=== PATIENT | male | born 1960 | race Caucasian/White ===

== ENCOUNTER 2018-07-10 09:09 | Inpatient (IN) | payer OTHER ==
[~2018-07-10] VITALS: Ht 182.9 cm; Wt 115.2 kg
[2018-07-10] VITALS (13 sets, daily range): BP systolic 92–125; BP diastolic 68–98
[~2018-07-10 09:09] MED LIST: ASPI-252 PO; ASPI-482 PO; ASPI325T70 PO; BYSTOLIC10 MG PO; CARV25TA2 PO; CLOP75TA PO; DOXY100C14 PO; FLUT1DIS IH; GABA-585 PO; ISOS60TA2 PO; LOVA40TA2 PO; METF100010 PO; OLME20TA17 PO; PROAIR RESPICL90 MCG IH; RANO500T2 PO
[2018-07-10] MEDS ORDERED: ONDANSETRON PF 4 MG/2 ML VIAL. ONE (09:23)
[2018-07-10] MEDS ORDERED: MORPHINE SULFATE 2 MG/ML VIAL. ONE (09:23)
[2018-07-10] MEDS ORDERED: MORPHINE SULFATE 4 MG/ML VIAL. IV ONE (09:30)
[2018-07-10] MEDS ORDERED: ONDANSETRON PF 4 MG/2 ML VIAL. IV ONE ×2 (09:30→10:00)
[2018-07-10] MEDS ORDERED: HEPARIN for IV BOLUS 10,000 UNIT/10 ML VIAL. IV ONE ×2 (09:30→22:00)
[2018-07-10] MEDS ORDERED: ASPIRIN CHEWABLE 81 MG TABLET. PO ONE (09:30)
[2018-07-10] MEDS ORDERED: ONDANSETRON PF 4 MG/2 ML VIAL. IM ONE (09:30)
[2018-07-10] MEDS ORDERED: MORPHINE SULFATE 2 MG/ML VIAL. IV ONE ×2 (09:30→10:00)
[2018-07-10 09:31] LABS: CREATININE ISTAT 1.1 mg/dL (0.5-1.4); HEMOGLOBIN ISTAT 15.6 g/dL (14-18); ION CA ISTAT 1.1 mmol/L (1.13-1.32); POTASSIUM ISTAT 4.1 mmol/L (3.5-5.0)
[2018-07-10] MEDS ORDERED: MORPHINE SULFATE 4 MG/ML VIAL. ONE (09:31)
--- NOTE | 2018-07-10 09:31 | PHYS DOC ---
Past Medical History Past Medical History: High Cholesterol, Hypertension, CO Past Surgical History: Coronary Bypass Surgery, Other Additional Past Surgical Histo: LEFT ARM SURGERY,CARDIAC STENTS X17 Alcohol Use: Occasionally Drug Use: None Adult General Chief Complaint Chief Complaint: CHEST PAIN-CARDIAC NATURE HPI HPI Patient is a 57-year-old male who presents with complaint of chest pain that originally started at about midnight last night. He states the pain initially lasted about 40 minutes and later had returned and had a second episode lasted approximately 15 minutes. He states that he was able to go to sleep after that and that he was woken this morning with left-sided chest pain that started again about 7:30 AM. Patient states that pain is an 8 out of 10 currently and it was worse earlier. He was diaphoretic and nauseated. Patient does have strong cardiac history. He states that he tried to get ahold of Dr. Lindquist his director integrated but was unable to so came to the emergency room. He describes the pain as being squeezing. Review of Systems Review of Systems Constitutional: Denies fever or chills [] Respiratory: Complains of shortness of breath [] Cardiovascular: Complains of chest pain[] GI: Denies abdominal pain. Admits to nausea.[] Musculoskeletal: Denies back pain or joint pain [] All other systems were reviewed and found to be within normal limits, except as documented in this note. Current Medications Current Medications Current Medications Medications (Trade) Dose Ordered Sig/Kailey Start Time Stop Time Status Last Admin Dose Admin Aspirin (Children'S Aspirin) 324 mg 1X ONCE 07/10/18 09:30 07/10/18 09:31 DC 07/10/18 09:23 324 MG Diltiazem HCl (Cardizem) 25 mg STK-MED ONCE 07/10/18 09:33 07/10/18 09:34 DC Diltiazem HCl 125 mg/Dextrose 125 ml @ 0 mls/hr CONT PRN 07/10/18 09:45 Heparin Sodium (Porcine) (Heparin Sodium) 4,000 unit 1X ONCE 07/10/18 09:30 07/10/18 09:31 DC 07/10/18 09:40 4,000 UNIT Heparin Sodium/ Dextrose 500 ml @ 20 mls/hr CONT PRN 07/10/18 09:45 Morphine Sulfate (Morphine Sulfate) 4 mg STK-MED ONCE 07/10/18 09:31 07/10/18 09:32 DC Ondansetron HCl (Zofran) 4 mg 1X ONCE 07/10/18 09:30 07/10/18 09:31 DC Allergies Allergies Allergies Coded Allergies Type Severity Reaction Last Updated Verified hydrochlorothiazide Allergy Intermediate diarrhea 02/19/15 Yes Physical Exam Physical Exam Constitutional: Well developed, well nourished, in moderate distress. [] HENT: Normocephalic, atraumatic, bilateral external ears normal, oropharynx moist, no oral exudates, nose normal. [] Eyes: PERRLA, EOMI, conjunctiva normal, no discharge. [] Neck: Normal range of motion, no tenderness, supple, no stridor. [] Cardiovascular: Markedly tachycardic rate with regular rhythm[] Lungs & Thorax: Bilateral breath sounds clear to auscultation [] Abdomen: Bowel sounds normal, soft, no tenderness. [] Skin: Warm, dry, no erythema, no rash. [] Extremities: No tenderness, no cyanosis, no clubbing, ROM intact, no edema. [] Neurologic: Alert and oriented X 3, normal motor function, normal sensory function, no focal deficits noted. [] Current Patient Data Vital Signs Vital Signs Date Time Temp Pulse Resp B/P (MAP) Pulse Ox O2 Delivery O2 Flow Rate FiO2 07/10/18 09:37 149 120/88 07/10/18 09:35 99 Room Air 07/10/18 09:12 97.4 20 97.4 Lab Values Laboratory Tests Test 07/10/18 09:20 07/10/18 09:21 07/10/18 09:26 White Blood Count 13.2 x10^3/uL (4.0-11.0) H Red Blood Count 5.23 x10^6/uL (4.30-5.70) Hemoglobin 15.8 g/dL (13.0-17.5) Hematocrit 46.9 % (39.0-53.0) Mean Corpuscular Volume 90 fL (79-100) Mean Corpuscular Hemoglobin 30 pg (25-35) Mean Corpuscular Hemoglobin Concent 34 g/dL (31-37) Red Cell Distribution Width 13.6 % (11.5-14.5) Platelet Count 230 x10^3/uL (140-400) Neutrophils (%) (Auto) 69 % (31-73) Lymphocytes (%) (Auto) 17 % (24-48) L Monocytes (%) (Auto) 12 % (0-9) H Eosinophils (%) (Auto) 1 % (0-3) Basophils (%) (Auto) 1 % (0-3) Neutrophils # (Auto) 9.1 x10^3uL (1.8-7.7) H Lymphocytes # (Auto) 2.2 x10^3/uL (1.0-4.8) Monocytes # (Auto) 1.6 x10^3/uL (0.0-1.1) H Eosinophils # (Auto) 0.2 x10^3/uL (0.0-0.7) Basophils # (Auto) 0.1 x10^3/uL (0.0-0.2) Sodium Level 139 mmol/L (136-145) Potassium Level 4.4 mmol/L (3.5-5.1) Chloride Level 102 mmol/L (98-107) Carbon Dioxide Level 28 mmol/L (21-32) Anion Gap 9 (6-14) 16 mmol/L (6-14) H Blood Urea Nitrogen 20 mg/dL (8-26) Creatinine 1.2 mg/dL (0.7-1.3) Estimated GFR (Cockcroft-Gault) 62.9 BUN/Creatinine Ratio 17 (6-20) Glucose Level 218 mg/dL (70-99) H 193 mg/dL (70-99) H Calcium Level 9.5 mg/dL (8.5-10.1) Magnesium Level Pending Total Bilirubin Pending Aspartate Amino Transferase (AST) Pending Alanine Aminotransferase (ALT) Pending Alkaline Phosphatase Pending Total Protein Pending Albumin Pending Albumin/Globulin Ratio Pending POC Troponin I 5.28 ng/ml (<0.08) POC Hemoglobin 15.6 g/dL (14-18) POC Hematocrit 46 % (37-52) POC Sodium 138 mmol/L (135-145) POC Potassium 4.1 mmol/L (3.5-5.0) POC Chloride 100 mmol/L (98-110) POC Total CO2 27 mmol/L (23-32) POC Blood Urea Nitrogen 21 mg/dL (8-26) POC Creatinine 1.1 mg/dL (0.5-1.4) POC Ionized Calcium (Symone) 1.10 mmol/L (1.13-1.32) L Laboratory Tests 07/10/18 09:20 Laboratory Tests 07/10/18 09:20 07/10/18 09:26 EKG EKG [] Interpretation Time: EKG demonstrates tachyarrhythmia with rate of 147. There is bundle branch block , likely left that is present. There are significant ST segment abnormalities noted in the inferior as well as anterior leads. Radiology/Procedures Radiology/Procedures [] Impressions: Portable chest x-ray demonstrates no acute abnormalities. Course & Med Decision Making Course & Med Decision Making Pertinent Labs and Imaging studies reviewed. (See chart for details) Patient moved to room upon arrival was evaluated by ER medical staff after which cardiac workup was initiated. EKG was reviewed and demonstrates tachyarrhythmia with marked ST abnormalities. Dr. Lindquist, patient's director integrated, was contacted and presented the patient's bedside. Patient given IV morphine for pain. Patient also initiated on heparin with a bolus followed by drip as well as IV Cardizem bolus followed by drip. After morphine, patient reporting significant improvement in pain. Patient will be admitted to the ICU under the care of Dr. Lindquist. Dragon Disclaimer Dragon Disclaimer This electronic medical record was generated, in whole or in part, using a voice recognition dictation system. Departure Departure Impression: Primary Impression: NSTEMI (non-ST elevated myocardial infarction) Disposition: ADMITTED INPATIENT Admitting Physician: Zander Lindquist Condition: IMPROVED Referrals: NILE GOODMAN MD (PCP) ZAYNAB ROSALES Jr., DO Jul 10, 2018 09:31
[2018-07-10 09:33] LABS: BASO # 0.1 x10^3/uL (0.0-0.2); BASO % 1 % (0-3); EOS # 0.2 x10^3/uL (0.0-0.7); EOS % 1 % (0-3); HEMATOCRIT 46.9 % (39.0-53.0); HEMOGLOBIN 15.8 g/dL (13.0-17.5); LYMPH # 2.2 x10^3/uL (1.0-4.8); LYMPH % 17 % (24-48); MEAN CORPUSCULAR HEMOGLOBIN 30 pg (25-35); MEAN CORPUSCULAR HGB CONC 34 g/dL (31-37); MEAN CORPUSCULAR VOLUME 90 fL (79-100); MONO # 1.6 x10^3/uL (0.0-1.1); MONO % 12 % (0-9); NEUT # 9.1 x10^3uL (1.8-7.7); NEUT % 69 % (31-73); PLATELET COUNT 230 x10^3/uL (140-400); RED BLOOD COUNT 5.23 x10^6/uL (4.30-5.70); RED CELL DISTRIBUTION WIDTH 13.6 % (11.5-14.5); WHITE BLOOD COUNT 13.2 x10^3/uL (4.0-11.0)
[2018-07-10] MEDS ORDERED: dilTIAZem IV PUSH 25 MG/5 ML VIAL ONE (09:33)
[2018-07-10 09:44] LABS: CALCIUM 9.5 mg/dL (8.5-10.1); CREATININE 1.2 mg/dL (0.7-1.3); GFR 62.9; POTASSIUM 4.4 mmol/L (3.5-5.1)
--- NOTE | 2018-07-10 09:44 | RAD ---
Single view of the chest. 07/10/2018 9:29 AM Indication: CHEST PAIN Comparison: Chest radiograph July 06, 2018 Findings: No pneumothorax or pleural effusion is identified. No acute focal infiltrate is seen. Pacemaking/AICD device from a left subclavian approach is grossly similar in configuration. Prior median sternotomy is noted. Heart size is mildly enlarged but stable. No acute osseous abnormality is seen. Mild interstitial coarsening is stable. IMPRESSION: Stable radiographic appearance of the chest. Electronically signed by: Fabian Almeida MD (07/10/2018 9:41 AM) [id number]
[2018-07-10] MEDS ORDERED: dilTIAZem IV PUSH 25 MG/5 ML VIAL IVP ONE (09:45)
[2018-07-10] MEDS ORDERED: dilTIAZem INJ 125 MG in IV DEXTROSE 5% 100ML 100 ML IV PRN (09:45)
[2018-07-10 09:47] LABS: PROTHROMBIN TIME PATIENT 12.5 SEC (11.7-14.0)
[2018-07-10 09:50] LABS: ALBUMIN 3.4 g/dL (3.4-5.0); ALBUMIN/GLOBULIN RATIO 0.9 (1.0-1.7); MAGNESIUM 1.8 mg/dL (1.8-2.4); TOTAL PROTEIN 7.1 g/dL (6.4-8.2)
[2018-07-10] MEDS ORDERED: ANTI-COAG MONITOR BY PHARMACY. MC PRN (10:00)
[2018-07-10] MEDS ORDERED: ONDANSETRON PF 4 MG/2 ML VIAL. IV PRN (10:00)
[2018-07-10] MEDS ORDERED: AMIODARONE 150 MG in IV DEXTROSE 5% 100ML 100 ML IV ONE ×3 (10:00→12:45)
[2018-07-10] MEDS ORDERED: IV 1/2 NORMAL SALINE 1,000 ML IV ONE (10:00)
[2018-07-10] MEDS ORDERED: MORPHINE SULFATE 4 MG/ML VIAL. IV PRN (10:00)
[2018-07-10] MEDS: HEPARIN 25,000UTS/500ML PREMIX 500 ML IV PRN (10:03)
[2018-07-10] MEDS ORDERED: fentaNYL PF VIAL 100 MCG/2 ML VIAL ONE (10:13)
[2018-07-10] MEDS ORDERED: MIDAZOLAM HCL/PF 2 MG/2 ML VIAL. ONE (10:13)
[2018-07-10] MEDS ORDERED: MIDAZOLAM HCL/PF 5 MG/5 ML VIAL. IV ONE (10:15)
[2018-07-10] MEDS ORDERED: fentaNYL PF VIAL 100 MCG/2 ML VIAL IV ONE (10:15)
[2018-07-10] MEDS ORDERED: AMIODARONE 900 MG in IV DEXTROSE 5% 500 ML IV PRN ×2 (10:30→21:30)
[2018-07-10] MEDS ORDERED: AMIODARONE 150 MG/3 ML VIAL ONE (10:31)
--- NOTE | 2018-07-10 10:42 | EKG ---
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
[2018-07-10] MEDS ORDERED: AMIODARONE 150 MG/3 ML VIAL IVP ONE (11:15)
[2018-07-10] MEDS ORDERED: DIGOXIN IV 500 MCG/2 ML AMPUL. IV ONE ×2 (11:30→15:15)
--- NOTE | 2018-07-10 13:12 | PDOC4 ---
PROCEDURE Procedure PROCEDURE NOTE PROCEDURE: EMERGENCY ELECTRICAL CARDIOVERSION PRE-OP Dx: WIDE QRS TACHYCARDIA, CARDIOMYOPATHY, RECENT RI POST-OP Dx: SAME PROCEDURE: PT WITH A SEVERE ISCHEMIC CARDIOMYOPATHY THAT HAS SEVERE SMALL VESSEL CAD AND HAD A RECENT RI LAST WEEK. HE CAME TO THE ER WITH PALPITATIONS, DIAPHORETIC AND FOUND TO BE IN A WIDE QRS TACHYCARDIA THAT LOOKS LIKE A FIB WITH RVR AND ABERRANCY. PT GIVEN IV CARDIZEM BUT NO CHANGE IN RHYTHM, GIVEN IV AMIODARONE AND NO CHANGE IN RHYTHM. BP LABILE, PT UNCOMFORTABLE. I WAS CONCERNED WITH THE SUSTAINED TACHYCARDIA AND HIS CARDIOMYOPATHY THAT HIS RHYTHM WAS GOING TO DETERIORATE TO V-FIB AND I DECIDED TO DO A CARDIOVERSION. THIS WAS DISCUSSED WITH THE PT AND HIS AND THEY AGREED WITH THIS APPROACH. VERBAL INFORMED CONSENT WAS OBTAINED. PT SEDATED WITH VERSED AND FENTANYL IN THE ER AND THEN HE WAS SHOCKED WITH 100 JOULES IN SYNCH. AND HE CONVERTED TO SINUS RHYTHM. AFTER ABOUT 5 MINUTES HE HAD PAC's AND WENT BACK INTO THE WIDE QRS TACHYCARDIA BUT AT A SLOWER RATE OF ABOUT 130's AND KEPT GOING IN AND OUT OF SINUS RHYTHM. PT ON AN AMIODARONE DRIP. THE PACER/AICD WAS INTERROGATED AND THE PT IS GOING IN AND OUT OF ATRIAL FLUTTER. IN VIEW OF THIS WILL CONTINUE WITH MEDICAL TREATMENT IN THE ICU. PT TOLERATED THE PROCEDURE WELL. BASIM SANTO MD Jul 10, 2018 13:12
--- NOTE | 2018-07-10 13:27 | PDOC1 ---
History and Physical Date of Admission Date of Admission DATE: 07/10/18 TIME: 13:18 Identification/Chief Complaint Chief Complaint Palpitations, chest pain History of Present Illness History of Present Illness This patient is a 57-year-old gentleman with an extensive cardiac history for many years. He's had multiple coronary stents and has had previous bypass surgery. The patient was sent to [facility] for evaluation for heart transplant a few months ago and they implanted a biventricular AICD pacemaker and told him that he was not a candidate at this point. The patient was here last week after having an WA and he was discharged 2 days ago in stable condition following the WA and he had a Min's syndrome. The patient had a heart catheterization last week and he has diffuse small vessel disease and the a my involvement occlusion of the distal circumflex and a distal marginal that were not targets for redo surgery or for intervention with stenting. The patient was at home and he started developing palpitations and he felt like he had a horse racing inside of his chest pounding all the way to his head and came to the emergency room where he was found to be in a wide QRS tachycardia. He was short of breath and diaphoretic. Multiple medications were done but he continued to be in a wide QRS tachycardia so on elective cardioversion was performed in the emergency room by me. The patient converted to sinus rhythm but about 5 minutes later he went back into the wide QRS tachycardia. The pacemaker was interrogated and the patient appeared to be in atrial flutter , no V. tach was seen or recorded. Therefore I decided to continue with the medical treatment and admitted the patient to ICU. The heart rate is in the 130s at this point and he has a systolic blood pressure above 100 Past Medical History Cardiovascular: CAD, HTN, WA, Hyperlipidemia, Other Pulmonary: COPD CENTRAL NERVOUS SYSTEM: Periperal neuropathy GI: GERD Musculoskeletal: low back pain Past Surgical History Past Surgical History: CABG, Hernia Repair, Other Family History Family History: Coronary Artery Disease Family History: Grandparents Social History ALCOHOL: occassional Drugs: None Current Problem List Problem List Problems Medical Problems: (1) NSTEMI (non-ST elevated myocardial infarction) Status: Acute Current Medications Current Medications Current Medications Aspirin (Children'S Aspirin) 324 mg 1X ONCE PO Last administered on at 09:23; Start 07/10/18 at 09:30; Stop 07/10/18 at 09:31; Status DC Morphine Sulfate (Morphine Sulfate) 2 mg 1X ONCE IV Last administered on 07/10at 09:25; Start 07/10/18 at 09:30; Stop 07/10/18 at 09:31; Status DC Morphine Sulfate (Morphine Sulfate) 2 mg STK-MED ONCE .ROUTE ; Start 07/10/18 at 09:23; Stop 07/10/18 at 09:24; Status DC Ondansetron HCl (Zofran) 4 mg STK-MED ONCE .ROUTE ; Start 07/10/18 at 09:23; Stop 07/10/18 at 09:24; Status DC Ondansetron HCl (Zofran) 4 mg 1X ONCE IM ; Start 07/10/18 at 09:30; Stop 08/17 at 09:31; Status DC Heparin Sodium (Porcine) (Heparin Sodium) 4,000 unit 1X ONCE IV Last administered on 07/10/18at 09:40; Start 07/10/18 at 09:30; Stop 07/10/18 at 09 :31; Status DC Ondansetron HCl (Zofran) 4 mg 1X ONCE IV ; Start 07/10/18 at 09:30; Stop 08/17 at 09:31; Status DC Morphine Sulfate (Morphine Sulfate) 4 mg 1X ONCE IV Last administered on 07/10at 09:35; Start 07/10/18 at 09:30; Stop 07/10/18 at 09:33; Status DC Morphine Sulfate (Morphine Sulfate) 4 mg STK-MED ONCE .ROUTE ; Start 07/10/18 at 09:31; Stop 07/10/18 at 09:32; Status DC Diltiazem HCl (Cardizem) 10 mg 1X ONCE IVP Last administered on 07/10/18at 09: 37; Start 07/10/18 at 09:45; Stop 07/10/18 at 09:46; Status DC Diltiazem HCl (Cardizem) 25 mg STK-MED ONCE .ROUTE ; Start 07/10/18 at 09:33; Stop 07/10/18 at 09:34; Status DC Heparin Sodium/ Dextrose 500 ml @ 20 mls/hr CONT PRN IV SEE I/O RECORD Last administered on 07/10/18at 10:03; Start 07/10/18 at 09:45 Diltiazem HCl 125 mg/Dextrose 125 ml @ 0 mls/hr CONT PRN IV SEE I/O RECORD Last administered on 07/10/18at 09:56; Start 07/10/18 at 09:45 Sodium Chloride 1,000 ml @ 75 mls/hr 1X ONCE IV Last administered on at 10:05; Start 07/10/18 at 10:00; Stop 07/10/18 at 23:19 Info (Anti-Coagulation Monitoring By Pharmacy) 1 each PRN DAILY PRN MC SEE COMMENTS; Start 07/10/18 at 10:00 Amiodarone HCl 150 mg/Dextrose 103 ml @ 618 mls/hr 1X ONCE IV Last administered on 07/10/18at 10:18; Start 07/10/18 at 10:00; Stop 07/10/18 at 10 :09; Status DC Ondansetron HCl (Zofran) 4 mg PRN Q8HRS PRN IV NAUSEA/VOMITING; Start at 10:00; Stop 07/11/18 at 09:59 Morphine Sulfate (Morphine Sulfate) 4 mg PRN Q2HR PRN IV PAIN; Start 07/10/18 at 10:00; Stop 07/11/18 at 09:59 Morphine Sulfate (Morphine Sulfate) 2 mg 1X ONCE IV ; Start 07/10/18 at 10:00 ; Stop 07/10/18 at 10:01; Status DC Ondansetron HCl (Zofran) 4 mg 1X ONCE IV ; Start 07/10/18 at 10:00; Stop 08/17 at 10:01; Status DC Fentanyl Citrate (Fentanyl 2ml Vial) 75 mcg 1X ONCE IV Last administered on at 10:24; Start 07/10/18 at 10:15; Stop 07/10/18 at 10:16; Status DC Midazolam HCl (Versed) 5 mg 1X ONCE IV Last administered on 07/10/18at 10:25; Start 07/10/18 at 10:15; Stop 07/10/18 at 10:16; Status DC Midazolam HCl (Versed) 2 mg STK-MED ONCE .ROUTE ; Start 07/10/18 at 10:13; Stop 07/10/18 at 10:14; Status DC Fentanyl Citrate (Fentanyl 2ml Vial) 100 mcg STK-MED ONCE .ROUTE ; Start at 10:13; Stop 07/10/18 at 10:14; Status DC Amiodarone HCl 900 mg/Dextrose 518 ml @ 0 mls/hr CONT PRN IV SEE I/O RECORD Last administered on 07/10/18at 10:38; Start 07/10/18 at 10:30; Stop 07/10/18 at 10:40; Status DC Amiodarone HCl 150 mg/Dextrose 103 ml @ 618 mls/hr 1X ONCE IV ; Start at 10:30; Stop 07/10/18 at 10:39; Status UNV Amiodarone HCl (Cordarone) 150 mg STK-MED ONCE .ROUTE ; Start 07/10/18 at 10:31 ; Stop 07/10/18 at 10:32; Status Cancel Amiodarone HCl (Cordarone) 150 mg 1X ONCE IVP Last administered on 07/10/18at 10:07; Start 07/10/18 at 11:15; Stop 07/10/18 at 11:16; Status DC Digoxin (Lanoxin) 500 mcg 1X ONCE IV Last administered on 07/10/18at 11:35; Start 07/10/18 at 11:30; Stop 07/10/18 at 11:31; Status DC Amiodarone HCl 150 mg/Dextrose 103 ml @ 618 mls/hr 1X ONCE IV Last administered on 07/10/18at 13:07; Start 07/10/18 at 12:45; Stop 07/10/18 at 12 :54; Status DC Active Scripts Active Reported Proair Respiclick (Albuterol Sulfate) 90 Mcg Aer.pow.ba 1 Puff IH PRN Q6HRS PRN Advair 100-50 Diskus (Fluticasone/Salmeterol) 1 Each Disk.w.dev 1 Inh IH BID Gabapentin 100 Mg Capsule 100 Mg PO BID Metformin Hcl Er (Metformin Hcl) 1,000 Mg Tab.er.24 1,000 Mg PO DAILYWBKFT Doxycycline Monohydrate 100 Mg Capsule 100 Mg PO BID Clopidogrel (Clopidogrel Bisulfate) 75 Mg Tablet 75 Mg PO DAILY Ecotrin (Aspirin) 325 Mg Tablet.dr 81 Mg PO DAILY Ranexa (Ranolazine) 500 Mg Tab.er.12h 1 Tab PO BID Carvedilol 25 Mg Tablet 25 Mg PO BID Isosorbide Mononitrate Er (Isosorbide Mononitrate) 60 Mg Tab.er.24h 60 Mg PO DAILY Lovastatin 40 Mg Tablet 40 Mg PO HS Benicar (Olmesartan Medoxomil) 20 Mg Tablet 40 Mg PO DAILY Allergies Allergies: Coded Allergies: hydrochlorothiazide (Verified Allergy, Intermediate, diarrhea, 02/19/15) Physical Exam General: Alert, Oriented X3, moderate distress HEENT: PERRLA Lungs: Clear to auscultation Heart: other (tachycardic, irregular, S1-S2) Abdomen: Normal bowel sounds, Soft Extremities: No edema, Normal pulses Vitals Vitals Vital Signs Date Time Temp Pulse Resp B/P (MAP) Pulse Ox O2 Delivery O2 Flow Rate FiO2 07/10/18 13:07 138 107/80 07/10/18 11:30 18 100 Nasal Cannula 4.0 07/10/18 09:12 97.4 97.4 Labs Labs Laboratory Tests Test 07/10/18 09:20 07/10/18 09:21 07/10/18 09:26 White Blood Count 13.2 x10^3/uL (4.0-11.0) Red Blood Count 5.23 x10^6/uL (4.30-5.70) Hemoglobin 15.8 g/dL (13.0-17.5) Hematocrit 46.9 % (39.0-53.0) Mean Corpuscular Volume 90 fL (79-100) Mean Corpuscular Hemoglobin 30 pg (25-35) Mean Corpuscular Hemoglobin Concent 34 g/dL (31-37) Red Cell Distribution Width 13.6 % (11.5-14.5) Platelet Count 230 x10^3/uL (140-400) Neutrophils (%) (Auto) 69 % (31-73) Lymphocytes (%) (Auto) 17 % (24-48) Monocytes (%) (Auto) 12 % (0-9) Eosinophils (%) (Auto) 1 % (0-3) Basophils (%) (Auto) 1 % (0-3) Neutrophils # (Auto) 9.1 x10^3uL (1.8-7.7) Lymphocytes # (Auto) 2.2 x10^3/uL (1.0-4.8) Monocytes # (Auto) 1.6 x10^3/uL (0.0-1.1) Eosinophils # (Auto) 0.2 x10^3/uL (0.0-0.7) Basophils # (Auto) 0.1 x10^3/uL (0.0-0.2) Prothrombin Time 12.5 SEC (11.7-14.0) Prothromb Time International Ratio 1.0 (0.8-1.1) Sodium Level 139 mmol/L (136-145) Potassium Level 4.4 mmol/L (3.5-5.1) Chloride Level 102 mmol/L (98-107) Carbon Dioxide Level 28 mmol/L (21-32) Anion Gap 9 (6-14) 16 mmol/L (6-14) Blood Urea Nitrogen 20 mg/dL (8-26) Creatinine 1.2 mg/dL (0.7-1.3) Estimated GFR (Cockcroft-Gault) 62.9 BUN/Creatinine Ratio 17 (6-20) Glucose Level 218 mg/dL (70-99) 193 mg/dL (70-99) Calcium Level 9.5 mg/dL (8.5-10.1) Magnesium Level 1.8 mg/dL (1.8-2.4) Total Bilirubin 1.0 mg/dL (0.2-1.0) Aspartate Amino Transf (AST/SGOT) 38 U/L (15-37) Alanine Aminotransferase (ALT/SGPT) 46 U/L (16-63) Alkaline Phosphatase 91 U/L (46-116) Creatine Kinase 117 U/L (39-308) Creatine Kinase MB (Mass) 4.1 ng/mL (0.0-3.6) Creatine Kinase MB Relative Index 3.5 % (0-4) Troponin I Quantitative 7.644 ng/mL (0.000-0.055) QF-Ckh-G-Type Natriuretic Peptide 711 pg/mL (0-124) Total Protein 7.1 g/dL (6.4-8.2) Albumin 3.4 g/dL (3.4-5.0) Albumin/Globulin Ratio 0.9 (1.0-1.7) Bedside Troponin I 5.28 ng/ml (<0.08) Bedside Hemoglobin 15.6 g/dL (14-18) Bedside Hematocrit 46 % (37-52) Bedside Sodium 138 mmol/L (135-145) Bedside Potassium 4.1 mmol/L (3.5-5.0) Bedside Chloride 100 mmol/L (98-110) Bedside Total CO2 27 mmol/L (23-32) Bedside Blood Urea Nitrogen 21 mg/dL (8-26) Bedside Creatinine 1.1 mg/dL (0.5-1.4) Bedside Ionized Calcium (Symone) 1.10 mmol/L (1.13-1.32) Laboratory Tests Test 07/10/18 09:20 07/10/18 09:21 07/10/18 09:26 White Blood Count 13.2 x10^3/uL (4.0-11.0) Red Blood Count 5.23 x10^6/uL (4.30-5.70) Hemoglobin 15.8 g/dL (13.0-17.5) Hematocrit 46.9 % (39.0-53.0) Mean Corpuscular Volume 90 fL (79-100) Mean Corpuscular Hemoglobin 30 pg (25-35) Mean Corpuscular Hemoglobin Concent 34 g/dL (31-37) Red Cell Distribution Width 13.6 % (11.5-14.5) Platelet Count 230 x10^3/uL (140-400) Neutrophils (%) (Auto) 69 % (31-73) Lymphocytes (%) (Auto) 17 % (24-48) Monocytes (%) (Auto) 12 % (0-9) Eosinophils (%) (Auto) 1 % (0-3) Basophils (%) (Auto) 1 % (0-3) Neutrophils # (Auto) 9.1 x10^3uL (1.8-7.7) Lymphocytes # (Auto) 2.2 x10^3/uL (1.0-4.8) Monocytes # (Auto) 1.6 x10^3/uL (0.0-1.1) Eosinophils # (Auto) 0.2 x10^3/uL (0.0-0.7) Basophils # (Auto) 0.1 x10^3/uL (0.0-0.2) Prothrombin Time 12.5 SEC (11.7-14.0) Prothromb Time International Ratio 1.0 (0.8-1.1) Sodium Level 139 mmol/L (136-145) Potassium Level 4.4 mmol/L (3.5-5.1) Chloride Level 102 mmol/L (98-107) Carbon Dioxide Level 28 mmol/L (21-32) Anion Gap 9 (6-14) 16 mmol/L (6-14) Blood Urea Nitrogen 20 mg/dL (8-26) Creatinine 1.2 mg/dL (0.7-1.3) Estimated GFR (Cockcroft-Gault) 62.9 BUN/Creatinine Ratio 17 (6-20) Glucose Level 218 mg/dL (70-99) 193 mg/dL (70-99) Calcium Level 9.5 mg/dL (8.5-10.1) Magnesium Level 1.8 mg/dL (1.8-2.4) Total Bilirubin 1.0 mg/dL (0.2-1.0) Aspartate Amino Transf (AST/SGOT) 38 U/L (15-37) Alanine Aminotransferase (ALT/SGPT) 46 U/L (16-63) Alkaline Phosphatase 91 U/L (46-116) Creatine Kinase 117 U/L (39-308) Creatine Kinase MB (Mass) 4.1 ng/mL (0.0-3.6) Creatine Kinase MB Relative Index 3.5 % (0-4) Troponin I Quantitative 7.644 ng/mL (0.000-0.055) OK-Cmu-S-Type Natriuretic Peptide 711 pg/mL (0-124) Total Protein 7.1 g/dL (6.4-8.2) Albumin 3.4 g/dL (3.4-5.0) Albumin/Globulin Ratio 0.9 (1.0-1.7) Bedside Troponin I 5.28 ng/ml (<0.08) Bedside Hemoglobin 15.6 g/dL (14-18) Bedside Hematocrit 46 % (37-52) Bedside Sodium 138 mmol/L (135-145) Bedside Potassium 4.1 mmol/L (3.5-5.0) Bedside Chloride 100 mmol/L (98-110) Bedside Total CO2 27 mmol/L (23-32) Bedside Blood Urea Nitrogen 21 mg/dL (8-26) Bedside Creatinine 1.1 mg/dL (0.5-1.4) Bedside Ionized Calcium (Symone) 1.10 mmol/L (1.13-1.32) VTE Prophylaxis Ordered VTE Prophylaxis Devices: Yes VTE Pharmacological Prophylaxi: Yes Assessment/Plan Assessment/Plan Patient with atrial flutter with a rapid ventricular response and aberrancy that keeps going in and out of sinus rhythm. I'm going to continue with the amiodarone drip as well as the heparin and get an echocardiogram to evaluate for any changes in the left ventricular function or increase in his pericardial effusion. In addition I'm going to give him IV magnesium and he may need to be digitalized also. He has severe diffuse small vessel coronary artery disease and is status post recent WA with a Min's syndrome. End stage ischemic cardiomyopathy. After the rhythm is controlled I would like to refer the patient for evaluation and treatment by the cook station with a possible EP study and possible ablation as well as for further evaluation for a heart transplant. I will be discussing all of these aspects with the patient and the family. BASIM SANTO MD Jul 10, 2018 13:27
[2018-07-10] MEDS ORDERED: MAGNESIUM SULFATE 2GM 50 ML IV ONE (13:45)
[2018-07-10] MEDS ORDERED: NON FORMULARY ITEM (Albuterol Sulfate (Proair Respiclick) 1 PUFF) IH PRN (14:00)
[2018-07-10] MEDS ORDERED: ALBUTEROL SULFATE 2.5 MG/3 ML NEBU. NEB PRN (14:30)
[2018-07-10] MEDS ORDERED: ADENOSINE 6 MG/2 ML VIAL. IV ONE (15:00)
[2018-07-10] MEDS: SOTALOL 80 MG TABLET. PO SCH ×2 (17:25→21:56)
[2018-07-10] MEDS ORDERED: NON FORMULARY ITEM (Fluticasone/Salmeterol (Advair 100-50 Diskus) 1 INH) IH SCH (21:00)
[2018-07-10] MEDS: ATORVASTATIN CALCIUM 10 MG TABLET. PO SCH (21:00)
[2018-07-10] MEDS: IV 1/2 NORMAL SALINE 1,000 ML IV SCH (21:56)
[2018-07-11] VITALS (14 sets, daily range): BP systolic 98–137; BP diastolic 66–94
[2018-07-11] MEDS: SOTALOL 80 MG TABLET. PO SCH ×3 (06:13→22:22)
[2018-07-11] MEDS: HEPARIN 25,000UTS/500ML PREMIX 500 ML IV PRN ×2 (06:16→23:28)
[2018-07-11] MEDS: ALBUTEROL SULFATE 2.5 MG/3 ML NEBU. NEB SCH ×3 (07:26→19:50)
[2018-07-11] MEDS: BUDESONIDE 0.5 MG/2 ML NEBU. NEB SCH ×2 (07:26→19:49)
--- NOTE | 2018-07-11 07:45 | RAD ---
Portable chest, 07/11/2018: HISTORY: Chest pain Comparison is made to yesterday's study. A left-sided transvenous pacemaker is again noted. There has been a previous median sternotomy. The heart is mildly enlarged. The pulmonary vascularity is normal. No pulmonary infiltrate is seen. There is no evidence of pleural fluid or pneumothorax. IMPRESSION: 1. Mild cardiomegaly. 2. No acute abnormality is detected. Electronically signed by: Tee Brito MD (07/11/2018 7:42 AM) [facility]
[2018-07-11] MEDS ORDERED: CARVEDILOL 12.5 MG TABLET. PO SCH (08:00)
[2018-07-11] MEDS ORDERED: ASPIRIN ENTERIC COATED 325 MG TABLET.DR. PO SCH (08:00)
[2018-07-11] MEDS: metFORMIN 500 MG TABLET PO SCH (08:21)
[2018-07-11] MEDS: RANOLAZINE 500 MG TAB.ER.12H PO SCH ×2 (08:22→21:25)
[2018-07-11] MEDS: LOSARTAN POTASSIUM 50 MG TABLET. PO SCH (08:24)
[2018-07-11] MEDS: AMIODARONE HCL 200 MG TABLET. PO SCH ×2 (08:24→21:24)
[2018-07-11] MEDS: ISOSORBIDE MONONITRATE ER 30 MG TAB.ER.24H PO SCH (08:25)
[2018-07-11] MEDS: GABAPENTIN 100 MG CAPSULE. PO SCH ×2 (08:25→21:24)
[2018-07-11] MEDS: CLOPIDOGREL BISULFATE 75 MG TABLET PO SCH (08:27)
[2018-07-11 09:28] LABS: HEMATOCRIT 44.2 % (39.0-53.0); HEMOGLOBIN 14.9 g/dL (13.0-17.5); RED BLOOD COUNT 4.96 x10^6/uL (4.30-5.70); RED CELL DISTRIBUTION WIDTH 13.4 % (11.5-14.5); WHITE BLOOD COUNT 13.7 x10^3/uL (4.0-11.0)
[2018-07-11] MEDS: ASPIRIN ENTERIC COATED 81 MG TABLET.DR. PO SCH (10:49)
[2018-07-11] MEDS: IV 1/2 NORMAL SALINE 1,000 ML IV SCH (11:20)
--- NOTE | 2018-07-11 14:27 | PDOC ---
PROGRESS NOTES Subjective Subjective Patient is presently in sinus rhythm. He has been going in and out of the supraventricular tachycardia and he is complaining of discomforts that appear to match the antitachycardia algorithms of the pacemaker. Patient is feeling short of breath today. Objective Objective Vital Signs Date Time Temp Pulse Resp B/P (MAP) Pulse Ox O2 Delivery O2 Flow Rate FiO2 07/11/18 13:40 64 104/68 07/11/18 12:50 99 Room Air 07/11/18 12:00 18 07/11/18 08:00 98.6 98.6 07/11/18 01:00 4.0 Intake and Output 07/11/18 07:00 Intake Total 1832.77 ml Output Total 0 ml Balance 1832.77 ml Intake Oral 468 ml IV Total 1364.77 ml Output Urine Total 0 ml # Voids 2 Physical Exam Physical Exam Neck 2 cm JVD. Lungs some basal rales. Heart no changes. Extremities no edema. Assessment Assessment Patient's rhythm appears to be better. I'm going to initiate warfarin and change the IV amiodarone to by mouth. We will continue with by mouth sotalol. Will have the antitachycardia algorithms of the pacemaker turned off but keep the AICD on. He may be getting a little wet therefore I'm going to give him IV Lasix today and check labs in the morning. Comment Review of Relevant I have reviewed the following items garett (where applicable) has been applied. Labs Laboratory Tests Test 07/10/18 09:20 07/10/18 09:21 07/10/18 09:26 07/10/18 12:30 White Blood Count 13.2 x10^3/uL (4.0-11.0) Red Blood Count 5.23 x10^6/uL (4.30-5.70) Hemoglobin 15.8 g/dL (13.0-17.5) Hematocrit 46.9 % (39.0-53.0) Mean Corpuscular Volume 90 fL (79-100) Mean Corpuscular Hemoglobin 30 pg (25-35) Mean Corpuscular Hemoglobin Concent 34 g/dL (31-37) Red Cell Distribution Width 13.6 % (11.5-14.5) Platelet Count 230 x10^3/uL (140-400) Neutrophils (%) (Auto) 69 % (31-73) Lymphocytes (%) (Auto) 17 % (24-48) Monocytes (%) (Auto) 12 % (0-9) Eosinophils (%) (Auto) 1 % (0-3) Basophils (%) (Auto) 1 % (0-3) Neutrophils # (Auto) 9.1 x10^3uL (1.8-7.7) Lymphocytes # (Auto) 2.2 x10^3/uL (1.0-4.8) Monocytes # (Auto) 1.6 x10^3/uL (0.0-1.1) Eosinophils # (Auto) 0.2 x10^3/uL (0.0-0.7) Basophils # (Auto) 0.1 x10^3/uL (0.0-0.2) Prothrombin Time 12.5 SEC (11.7-14.0) Prothromb Time International Ratio 1.0 (0.8-1.1) Sodium Level 139 mmol/L (136-145) Potassium Level 4.4 mmol/L (3.5-5.1) Chloride Level 102 mmol/L (98-107) Carbon Dioxide Level 28 mmol/L (21-32) Anion Gap 9 (6-14) 16 mmol/L (6-14) Blood Urea Nitrogen 20 mg/dL (8-26) Creatinine 1.2 mg/dL (0.7-1.3) Estimated GFR (Cockcroft-Gault) 62.9 BUN/Creatinine Ratio 17 (6-20) Glucose Level 218 mg/dL (70-99) 193 mg/dL (70-99) Calcium Level 9.5 mg/dL (8.5-10.1) Magnesium Level 1.8 mg/dL (1.8-2.4) Total Bilirubin 1.0 mg/dL (0.2-1.0) Aspartate Amino Transf (AST/SGOT) 38 U/L (15-37) Alanine Aminotransferase (ALT/SGPT) 46 U/L (16-63) Alkaline Phosphatase 91 U/L (46-116) Creatine Kinase 117 U/L (39-308) Creatine Kinase MB (Mass) 4.1 ng/mL (0.0-3.6) Creatine Kinase MB Relative Index 3.5 % (0-4) Troponin I Quantitative 7.644 ng/mL (0.000-0.055) RQ-Nmm-[id number]-Type Natriuretic Peptide 711 pg/mL (0-124) Total Protein 7.1 g/dL (6.4-8.2) Albumin 3.4 g/dL (3.4-5.0) Albumin/Globulin Ratio 0.9 (1.0-1.7) Bedside Troponin I 5.28 ng/ml (<0.08) Bedside Hemoglobin 15.6 g/dL (14-18) Bedside Hematocrit 46 % (37-52) Bedside Sodium 138 mmol/L (135-145) Bedside Potassium 4.1 mmol/L (3.5-5.0) Bedside Chloride 100 mmol/L (98-110) Bedside Total CO2 27 mmol/L (23-32) Bedside Blood Urea Nitrogen 21 mg/dL (8-26) Bedside Creatinine 1.1 mg/dL (0.5-1.4) Bedside Ionized Calcium (Symone) 1.10 mmol/L (1.13-1.32) Nasal Screen MRSA (PCR) Negative (Negative) Test 07/10/18 13:10 07/10/18 16:00 07/10/18 19:55 07/11/18 06:25 Troponin I Quantitative 6.125 ng/mL (0.000-0.055) 6.171 ng/mL (0.000-0.055) 6.270 ng/mL (0.000-0.055) Heparin Anti-Xa Act, Unfractionated < 0.10 IU/mL (0.30-0.70) Test 07/11/18 08:05 White Blood Count 13.7 x10^3/uL (4.0-11.0) Red Blood Count 4.96 x10^6/uL (4.30-5.70) Hemoglobin 14.9 g/dL (13.0-17.5) Hematocrit 44.2 % (39.0-53.0) Mean Corpuscular Volume 89 fL (79-100) Mean Corpuscular Hemoglobin 30 pg (25-35) Mean Corpuscular Hemoglobin Concent 34 g/dL (31-37) Red Cell Distribution Width 13.4 % (11.5-14.5) Platelet Count 197 x10^3/uL (140-400) Heparin Anti-Xa Act, Unfractionated 0.24 IU/mL (0.30-0.70) Laboratory Tests Test 07/10/18 16:00 07/10/18 19:55 07/11/18 06:25 07/11/18 08:05 Troponin I Quantitative 6.171 ng/mL (0.000-0.055) 6.270 ng/mL (0.000-0.055) Heparin Anti-Xa Act, Unfractionated < 0.10 IU/mL (0.30-0.70) 0.24 IU/mL (0.30-0.70) White Blood Count 13.7 x10^3/uL (4.0-11.0) Red Blood Count 4.96 x10^6/uL (4.30-5.70) Hemoglobin 14.9 g/dL (13.0-17.5) Hematocrit 44.2 % (39.0-53.0) Mean Corpuscular Volume 89 fL (79-100) Mean Corpuscular Hemoglobin 30 pg (25-35) Mean Corpuscular Hemoglobin Concent 34 g/dL (31-37) Red Cell Distribution Width 13.4 % (11.5-14.5) Platelet Count 197 x10^3/uL (140-400) Medications Current Medications Aspirin (Children'S Aspirin) 324 mg 1X ONCE PO Last administered on at 09:23; Start 07/10/18 at 09:30; Stop 07/10/18 at 09:31; Status DC Morphine Sulfate (Morphine Sulfate) 2 mg 1X ONCE IV Last administered on 07/10at 09:25; Start 07/10/18 at 09:30; Stop 07/10/18 at 09:31; Status DC Morphine Sulfate (Morphine Sulfate) 2 mg STK-MED ONCE .ROUTE ; Start 07/10/18 at 09:23; Stop 07/10/18 at 09:24; Status DC Ondansetron HCl (Zofran) 4 mg STK-MED ONCE .ROUTE ; Start 07/10/18 at 09:23; Stop 07/10/18 at 09:24; Status DC Ondansetron HCl (Zofran) 4 mg 1X ONCE IM ; Start 07/10/18 at 09:30; Stop 08/17 at 09:31; Status DC Heparin Sodium (Porcine) (Heparin Sodium) 4,000 unit 1X ONCE IV Last administered on 07/10/18at 09:40; Start 07/10/18 at 09:30; Stop 07/10/18 at 09 :31; Status DC Ondansetron HCl (Zofran) 4 mg 1X ONCE IV ; Start 07/10/18 at 09:30; Stop 08/17 at 09:31; Status DC Morphine Sulfate (Morphine Sulfate) 4 mg 1X ONCE IV Last administered on 07/10at 09:35; Start 07/10/18 at 09:30; Stop 07/10/18 at 09:33; Status DC Morphine Sulfate (Morphine Sulfate) 4 mg STK-MED ONCE .ROUTE ; Start 07/10/18 at 09:31; Stop 07/10/18 at 09:32; Status DC Diltiazem HCl (Cardizem) 10 mg 1X ONCE IVP Last administered on 07/10/18at 09: 37; Start 07/10/18 at 09:45; Stop 07/10/18 at 09:46; Status DC Diltiazem HCl (Cardizem) 25 mg STK-MED ONCE .ROUTE ; Start 07/10/18 at 09:33; Stop 07/10/18 at 09:34; Status DC Heparin Sodium/ Dextrose 500 ml @ 20 mls/hr CONT PRN IV SEE I/O RECORD Last administered on 07/11/18at 06:16; Start 07/10/18 at 09:45 Diltiazem HCl 125 mg/Dextrose 125 ml @ 0 mls/hr CONT PRN IV SEE I/O RECORD Last administered on 07/10/18at 09:56; Start 07/10/18 at 09:45 Sodium Chloride 1,000 ml @ 75 mls/hr 1X ONCE IV Last administered on at 10:05; Start 07/10/18 at 10:00; Stop 07/10/18 at 23:19; Status DC Info (Anti-Coagulation Monitoring By Pharmacy) 1 each PRN DAILY PRN MC SEE COMMENTS Last administered on 07/11/18at 11:16; Start 07/10/18 at 10:00 Amiodarone HCl 150 mg/Dextrose 103 ml @ 618 mls/hr 1X ONCE IV Last administered on 07/10/18at 10:18; Start 07/10/18 at 10:00; Stop 07/10/18 at 10 :09; Status DC Ondansetron HCl (Zofran) 4 mg PRN Q8HRS PRN IV NAUSEA/VOMITING; Start at 10:00; Stop 07/11/18 at 09:59; Status DC Morphine Sulfate (Morphine Sulfate) 4 mg PRN Q2HR PRN IV PAIN; Start 07/10/18 at 10:00; Stop 07/11/18 at 09:59; Status DC Morphine Sulfate (Morphine Sulfate) 2 mg 1X ONCE IV ; Start 07/10/18 at 10:00 ; Stop 07/10/18 at 10:01; Status DC Ondansetron HCl (Zofran) 4 mg 1X ONCE IV ; Start 07/10/18 at 10:00; Stop 08/17 at 10:01; Status DC Fentanyl Citrate (Fentanyl 2ml Vial) 75 mcg 1X ONCE IV Last administered on at 10:24; Start 07/10/18 at 10:15; Stop 07/10/18 at 10:16; Status DC Midazolam HCl (Versed) 5 mg 1X ONCE IV Last administered on 07/10/18at 10:25; Start 07/10/18 at 10:15; Stop 07/10/18 at 10:16; Status DC Midazolam HCl (Versed) 2 mg STK-MED ONCE .ROUTE ; Start 07/10/18 at 10:13; Stop 07/10/18 at 10:14; Status DC Fentanyl Citrate (Fentanyl 2ml Vial) 100 mcg STK-MED ONCE .ROUTE ; Start at 10:13; Stop 07/10/18 at 10:14; Status DC Amiodarone HCl 900 mg/Dextrose 518 ml @ 0 mls/hr CONT PRN IV SEE I/O RECORD Last administered on 07/10/18at 10:38; Start 07/10/18 at 10:30; Stop 07/10/18 at 10:40; Status DC Amiodarone HCl 150 mg/Dextrose 103 ml @ 618 mls/hr 1X ONCE IV ; Start at 10:30; Stop 07/10/18 at 10:39; Status UNV Amiodarone HCl (Cordarone) 150 mg STK-MED ONCE .ROUTE ; Start 07/10/18 at 10:31 ; Stop 07/10/18 at 10:32; Status Cancel Amiodarone HCl (Cordarone) 150 mg 1X ONCE IVP Last administered on 07/10/18at 10:07; Start 07/10/18 at 11:15; Stop 07/10/18 at 11:16; Status DC Digoxin (Lanoxin) 500 mcg 1X ONCE IV Last administered on 07/10/18at 11:35; Start 07/10/18 at 11:30; Stop 07/10/18 at 11:31; Status DC Amiodarone HCl 150 mg/Dextrose 103 ml @ 618 mls/hr 1X ONCE IV Last administered on 07/10/18at 13:07; Start 07/10/18 at 12:45; Stop 07/10/18 at 12 :54; Status DC Magnesium Sulfate 50 ml @ 25 mls/hr 1X ONCE IV Last administered on at 13:49; Start 07/10/18 at 13:45; Stop 07/10/18 at 15:44; Status DC Aspirin (Ecotrin) 81 mg DAILYWBKFT PO ; Start 07/11/18 at 08:00; Stop at 10:26; Status DC Clopidogrel Bisulfate (Plavix) 75 mg DAILY PO Last administered on 07/11/18at 08:27; Start 07/11/18 at 09:00 Gabapentin (Neurontin) 100 mg BID PO Last administered on 07/11/18at 08:25; Start 07/11/18 at 09:00 Ranolazine (Ranexa) 500 mg BID PO Last administered on 07/11/18at 08:22; Start 07/11/18 at 09:00 Non-Formulary Medication (Albuterol Sulfate (Proair Respiclick)) 1 puff PRN Q6HRS PRN IH SHORTNESS OF BREATH; Start 07/10/18 at 14:00; Stop 07/10/18 at 14:33; Status DC Carvedilol (Coreg) 25 mg BIDWMEALS PO ; Start 07/11/18 at 08:00; Stop at 08:00; Status DC Non-Formulary Medication (Fluticasone/ Salmeterol (Advair 100-50 Diskus)) 1 inh BID IH ; Start 07/10/18 at 21:00; Stop 07/10/18 at 21:00; Status DC Isosorbide Mononitrate (Imdur) 60 mg DAILY PO Last administered on 07/11/18at 08:25; Start 07/11/18 at 09:00 Atorvastatin Calcium (Lipitor) 10 mg QHS PO ; Start 07/10/18 at 21:00 Metformin HCl (Glucophage) 1,000 mg DAILYWBKFT PO Last administered on at 08:21; Start 07/11/18 at 08:00 Losartan Potassium (Cozaar) 100 mg DAILY PO Last administered on 07/11/18at 08: 24; Start 07/11/18 at 09:00 Albuterol Sulfate (Ventolin Neb Soln) 2.5 mg PRN Q6HRS PRN NEB SHORTNESS OF BREATH; Start 07/10/18 at 14:30 Albuterol Sulfate (Ventolin Neb Soln) 2.5 mg Q6HRS NEB Last administered on 09/16at 12:50; Start 07/11/18 at 06:00 Budesonide (Pulmicort) 0.5 mg RTBID NEB Last administered on 07/11/18at 07:26; Start 07/11/18 at 08:00 Adenosine (Adenocard) 6 mg 1X ONCE IV Last administered on 07/10/18at 14:57; Start 07/10/18 at 15:00; Stop 07/10/18 at 15:01; Status DC Digoxin (Lanoxin) 250 mcg 1X ONCE IV Last administered on 07/10/18at 15:40; Start 07/10/18 at 15:15; Stop 07/10/18 at 15:16; Status DC Sotalol HCl (Betapace) 80 mg Q8HRS PO Last administered on 07/11/18at 13:40; Start 07/10/18 at 16:00 Heparin Sodium (Porcine) (Heparin Sodium) 3,000 unit 1X ONCE IV Last administered on 07/10/18at 21:57; Start 07/10/18 at 22:00; Stop 07/10/18 at 22 :01; Status DC Amiodarone HCl 900 mg/Dextrose 518 ml @ 0 mls/hr CONT PRN IV SEE I/O RECORD; Start 07/10/18 at 21:30; Status Cancel Sodium Chloride 1,000 ml @ 75 mls/hr [id number] IV Last administered on at 21:56; Start 07/10/18 at 22:00 Amiodarone HCl (Cordarone) 400 mg BID PO Last administered on 07/11/18at 08:24 ; Start 07/11/18 at 09:00 Warfarin Sodium (Coumadin) 10 mg 1X ONCE PO ; Start 07/11/18 at 16:00; Stop 07/11/18 at 16:01 Aspirin (Ecotrin) 81 mg DAILYWBKFT PO Last administered on 07/11/18at 10:49; Start 07/11/18 at 10:30 Warfarin Sodium (Coumadin Per Physician) 1 each PRN DAILY PRN MC SEE COMMENTS; Start 07/11/18 at 10:30 Active Scripts Active Reported Proair Respiclick (Albuterol Sulfate) 90 Mcg Aer.pow.ba 1 Puff IH PRN Q6HRS PRN Advair 100-50 Diskus (Fluticasone/Salmeterol) 1 Each Disk.w.dev 1 Inh IH BID Gabapentin 100 Mg Capsule 100 Mg PO BID Metformin Hcl Er (Metformin Hcl) 1,000 Mg Tab.er.24 1,000 Mg PO DAILYWBKFT Doxycycline Monohydrate 100 Mg Capsule 100 Mg PO BID Clopidogrel (Clopidogrel Bisulfate) 75 Mg Tablet 75 Mg PO DAILY Ecotrin (Aspirin) 325 Mg Tablet.dr 81 Mg PO DAILY Ranexa (Ranolazine) 500 Mg Tab.er.12h 1 Tab PO BID Carvedilol 25 Mg Tablet 25 Mg PO BID Isosorbide Mononitrate Er (Isosorbide Mononitrate) 60 Mg Tab.er.24h 60 Mg PO DAILY Lovastatin 40 Mg Tablet 40 Mg PO HS Benicar (Olmesartan Medoxomil) 20 Mg Tablet 40 Mg PO DAILY Vitals/I & O Vital Sign - Last 24 Hours 07/10/18 07/10/18 07/10/18 07/10/18 15:00 15:40 16:00 16:00 Temp 98.0 98.0 Pulse 140 140 140 Resp 13 15 B/P (MAP) 92/82 (85) 92/82 114/85 (95) Pulse Ox 100 99 O2 Delivery Nasal Cannula Nasal Cannula Nasal Cannula O2 Flow Rate 4.0 4.0 4.0 07/10/18 07/10/18 07/10/18 07/10/18 17:00 17:25 18:00 19:00 Pulse 141 146 140 139 Resp 12 12 19 B/P (MAP) 118/90 (99) 116/90 121/68 (85) 115/95 (102) Pulse Ox 99 99 99 O2 Delivery Nasal Cannula Nasal Cannula Nasal Cannula O2 Flow Rate 4.0 4.0 4.0 07/10/18 07/10/18 07/10/18 07/10/18 20:00 20:00 21:00 21:56 Temp 98.1 98.1 Pulse 138 138 74 Resp 12 12 B/P (MAP) 125/85 (98) 122/98 (106) 122/98 Pulse Ox 99 99 O2 Delivery Nasal Cannula Nasal Cannula Nasal Cannula O2 Flow Rate 4.0 4.0 4.0 07/10/18 07/10/18 07/10/18 07/11/18 22:00 23:00 23:59 00:00 Temp 98.6 98.6 Pulse 70 62 61 Resp 19 13 15 B/P (MAP) 119/88 (98) 108/77 (87) 104/72 (83) Pulse Ox 96 98 99 O2 Delivery Nasal Cannula Nasal Cannula Nasal Cannula Nasal Cannula O2 Flow Rate 4.0 4.0 4.0 4.0 07/11/18 07/11/18 07/11/18 07/11/18 01:00 02:00 03:00 04:00 Pulse 60 138 137 Resp 14 21 20 B/P (MAP) 116/83 (94) 125/93 (104) 107/87 (94) Pulse Ox 99 98 94 O2 Delivery Nasal Cannula Room Air Room Air Room Air O2 Flow Rate 4.0 07/11/18 07/11/18 07/11/18 07/11/18 04:00 05:00 06:00 06:13 Temp 98.1 98.1 Pulse 138 138 67 67 Resp 20 16 20 B/P (MAP) 137/79 (98) 98/86 (90) 123/85 (98) 123/85 Pulse Ox 99 95 97 O2 Delivery Room Air Room Air Room Air 07/11/18 07/11/18 07/11/18 07/11/18 07:00 07:27 08:00 08:00 Temp 98.6 98.6 Pulse 62 138 Resp 20 20 B/P (MAP) 130/94 (106) 104/82 (89) Pulse Ox 96 98 96 O2 Delivery Room Air Room Air Room Air Room Air 07/11/18 07/11/18 07/11/18 07/11/18 08:22 08:24 08:24 08:25 B/P (MAP) 128/89 128/89 128/89 128/89 07/11/18 07/11/18 07/11/18 07/11/18 09:00 10:00 12:00 12:50 Pulse 62 64 64 Resp 18 16 18 B/P (MAP) 112/73 (86) 111/73 (86) 105/80 (88) Pulse Ox 96 96 96 99 O2 Delivery Room Air Room Air Room Air Room Air 07/11/18 13:40 Pulse 64 B/P (MAP) 104/68 Intake and Output 07/10/18 07/10/18 07/11/18 15:00 23:00 07:00 Intake Total 103 ml 1379.77 ml 350 ml Output Total 0 ml 0 ml Balance 103 ml 1379.77 ml 350 ml BASIM SANTO MD Jul 11, 2018 14:27
[2018-07-11] MEDS ORDERED: FUROSEMIDE 40 MG/4 ML VIAL. IVP ONE (14:30)
[2018-07-11] MEDS ORDERED: WARFARIN 5 MG TABLET. PO ONE (16:00)
[2018-07-11] MEDS: ATORVASTATIN CALCIUM 10 MG TABLET. PO SCH (21:25)
[2018-07-12] VITALS (8 sets, daily range): BP systolic 101–136; BP diastolic 65–91
[2018-07-12] MEDS: IV 1/2 NORMAL SALINE 1,000 ML IV SCH (00:40)
[2018-07-12] MEDS: ALBUTEROL SULFATE 2.5 MG/3 ML NEBU. NEB SCH ×4 (02:01→20:07)
[2018-07-12 06:01] LABS: ALBUMIN/GLOBULIN RATIO 0.8 (1.0-1.7); CALCIUM 9.4 mg/dL (8.5-10.1); GFR 77.6; POTASSIUM 3.9 mmol/L (3.5-5.1); TOTAL BILIRUBIN 0.7 mg/dL (0.2-1.0); TOTAL PROTEIN 6.9 g/dL (6.4-8.2)
[2018-07-12] MEDS: SOTALOL 80 MG TABLET. PO SCH ×2 (06:10→20:35)
[2018-07-12 06:23] LABS: PROTHROMBIN TIME PATIENT 13.6 SEC (11.7-14.0)
[2018-07-12 06:57] LABS: HEMOGLOBIN 14.2 g/dL (13.0-17.5); RED BLOOD COUNT 4.63 x10^6/uL (4.30-5.70); WHITE BLOOD COUNT 11.6 x10^3/uL (4.0-11.0)
[2018-07-12] MEDS: BUDESONIDE 0.5 MG/2 ML NEBU. NEB SCH ×2 (08:06→20:07)
[2018-07-12] MEDS: metFORMIN 500 MG TABLET PO SCH (08:34)
[2018-07-12] MEDS: ASPIRIN ENTERIC COATED 81 MG TABLET.DR. PO SCH (08:34)
[2018-07-12] MEDS: AMIODARONE HCL 200 MG TABLET. PO SCH ×2 (08:36→20:35)
[2018-07-12] MEDS: RANOLAZINE 500 MG TAB.ER.12H PO SCH ×2 (08:37→20:35)
[2018-07-12] MEDS: LOSARTAN POTASSIUM 50 MG TABLET. PO SCH (08:38)
[2018-07-12] MEDS: GABAPENTIN 100 MG CAPSULE. PO SCH ×2 (08:38→20:33)
[2018-07-12] MEDS: ISOSORBIDE MONONITRATE ER 30 MG TAB.ER.24H PO SCH (08:38)
[2018-07-12] MEDS: CLOPIDOGREL BISULFATE 75 MG TABLET PO SCH (08:38)
--- NOTE | 2018-07-12 12:58 | CARD ---
MR#: [id number] Date of Study: 07/10/2018 Ordering Physician: ZANDER LINDQUIST, Referring Physician: ZANDER LINDQUIST, Tech: Edilia Zuñiga APPROVED REPORT EXAM: Two-dimensional and M-mode echocardiogram with Doppler and color Doppler. Other Information Quality : AverageHR: 135bpm INDICATION Non STEMI RISK FACTORS Hypertension 2D DIMENSIONS RVDd3.1 (2.9-3.5cm)Left Atrium(2D)4.2 (1.6-4.0cm) IVSd1.4 (0.7-1.1cm)Aortic Root(2D)3.5 (2.0-3.7cm) LVDd5.5 (3.9-5.9cm)LVOT Diameter2.1 (1.8-2.4cm) PWd1.5 (0.7-1.1cm) M-Mode DIMENSIONS LVEF(%)25 (>50%) Tricuspid Valve RAP [id number] Peak Gr.29mmHg [id number] LEFT VENTRICLE The Left Ventricle is moderately dilated. There is borderline to mild concentric left ventricular hyp ertrophy. The systolic function is moderately impaired. The Ejection Fraction is 25%. There is global hypokinesis of the left ventricle. Transmitral Doppler flow pattern is Grade I-abnormal relaxation p attern. RIGHT VENTRICLE The right ventricle is normal size. There is normal right ventricular wall thickness. ATRIA The left atrium size is normal. The right atrium size is normal. The interatrial septum is intact wit h no evidence for an atrial septal defect or patent foramen ovale as noted on 2-D or Doppler imaging. AORTIC VALVE The aortic valve is not well visualized. Doppler and Color Flow revealed no significant aortic regurg itation. There is no significant aortic valvular stenosis. MITRAL VALVE The mitral valve is normal in structure There is no mitral valve stenosis. Doppler and Color-flow rev ealed mild mitral regurgitation. TRICUSPID VALVE The tricuspid valve is not well visualized. Doppler and Color Flow revealed trace tricuspid regurgita tion. PULMONIC VALVE The pulmonic valve is not well visualized. Doppler and Color Flow revealed no pulmonic valvular regur gitation. GREAT VESSELS The aortic root is normal in size. The IVC is dilated and collapses <50% with inspiration. PERICARDIAL EFFUSION There is a small pericardial effusion. Unchanged from the last echocardiogram Critical Notification Critical Value: No <Conclusion> The systolic function is moderately impaired. The Ejection Fraction is 25%. Transmitral Doppler flow pattern is Grade I-abnormal relaxation pattern. There is borderline to mild concentric left ventricular hypertrophy. The Left Ventricle is moderately dilated. The left atrium size is normal. The right atrium size is normal. The aortic valve is not well visualized. Doppler and Color-flow revealed mild mitral regurgitation. Doppler and Color Flow revealed trace tricuspid regurgitation. The pulmonic valve is not well visualized. There is a small pericardial effusion. Unchanged from the last echocardiogram Signed by : Zander Lindquist MD Electronically Approved : 07/12/2018 12:57:50
--- NOTE | 2018-07-12 13:21 | PDOC ---
PROGRESS NOTES Subjective Subjective feels better today. He has been having episodes of intermittent atrial fibrillation but mostly has been in sinus. Objective Objective Vital Signs Date Time Temp Pulse Resp B/P (MAP) Pulse Ox O2 Delivery O2 Flow Rate FiO2 07/12/18 12:09 Room Air 07/12/18 12:05 61 07/12/18 10:50 98.8 18 112/69 (83) 98.8 07/12/18 08:25 95 07/11/18 01:00 4.0 Intake and Output 07/12/18 07:00 Intake Total 1970 ml Balance 1970 ml Intake Oral 1250 ml IV Total 720 ml # Voids 5 Physical Exam Physical Exam No significant changes in cardiac exam Assessment Assessment Patient improving. He is in sinus rhythm at this time. We will continue with by mouth amiodarone and by mouth sotalol. Continue with daily INRs and warfarin. May transfer out of ICU. Comment Review of Relevant I have reviewed the following items garett (where applicable) has been applied. Labs Laboratory Tests Test 07/10/18 16:00 07/10/18 19:55 07/11/18 06:25 07/11/18 08:05 Troponin I Quantitative 6.171 ng/mL (0.000-0.055) 6.270 ng/mL (0.000-0.055) Heparin Anti-Xa Act, Unfractionated < 0.10 IU/mL (0.30-0.70) 0.24 IU/mL (0.30-0.70) White Blood Count 13.7 x10^3/uL (4.0-11.0) Red Blood Count 4.96 x10^6/uL (4.30-5.70) Hemoglobin 14.9 g/dL (13.0-17.5) Hematocrit 44.2 % (39.0-53.0) Mean Corpuscular Volume 89 fL (79-100) Mean Corpuscular Hemoglobin 30 pg (25-35) Mean Corpuscular Hemoglobin Concent 34 g/dL (31-37) Red Cell Distribution Width 13.4 % (11.5-14.5) Platelet Count 197 x10^3/uL (140-400) Test 07/12/18 05:00 07/12/18 08:31 07/12/18 11:45 White Blood Count 11.6 x10^3/uL (4.0-11.0) Red Blood Count 4.63 x10^6/uL (4.30-5.70) Hemoglobin 14.2 g/dL (13.0-17.5) Hematocrit 41.0 % (39.0-53.0) Mean Corpuscular Volume 89 fL (79-100) Mean Corpuscular Hemoglobin 31 pg (25-35) Mean Corpuscular Hemoglobin Concent 35 g/dL (31-37) Red Cell Distribution Width 14.0 % (11.5-14.5) Platelet Count 162 x10^3/uL (140-400) Prothrombin Time 13.6 SEC (11.7-14.0) Prothromb Time International Ratio 1.1 (0.8-1.1) Sodium Level 137 mmol/L (136-145) Potassium Level 3.9 mmol/L (3.5-5.1) Chloride Level 101 mmol/L (98-107) Carbon Dioxide Level 25 mmol/L (21-32) Anion Gap 11 (6-14) Blood Urea Nitrogen 15 mg/dL (8-26) Creatinine 1.0 mg/dL (0.7-1.3) Estimated GFR (Cockcroft-Gault) 77.6 BUN/Creatinine Ratio 15 (6-20) Glucose Level 147 mg/dL (70-99) Calcium Level 9.4 mg/dL (8.5-10.1) Total Bilirubin 0.7 mg/dL (0.2-1.0) Aspartate Amino Transf (AST/SGOT) 23 U/L (15-37) Alanine Aminotransferase (ALT/SGPT) 28 U/L (16-63) Alkaline Phosphatase 71 U/L (46-116) Total Protein 6.9 g/dL (6.4-8.2) Albumin 3.0 g/dL (3.4-5.0) Albumin/Globulin Ratio 0.8 (1.0-1.7) Glucose (Fingerstick) 142 mg/dL (70-99) 148 mg/dL (70-99) Laboratory Tests Test 07/12/18 05:00 07/12/18 08:31 07/12/18 11:45 White Blood Count 11.6 x10^3/uL (4.0-11.0) Red Blood Count 4.63 x10^6/uL (4.30-5.70) Hemoglobin 14.2 g/dL (13.0-17.5) Hematocrit 41.0 % (39.0-53.0) Mean Corpuscular Volume 89 fL (79-100) Mean Corpuscular Hemoglobin 31 pg (25-35) Mean Corpuscular Hemoglobin Concent 35 g/dL (31-37) Red Cell Distribution Width 14.0 % (11.5-14.5) Platelet Count 162 x10^3/uL (140-400) Prothrombin Time 13.6 SEC (11.7-14.0) Prothromb Time International Ratio 1.1 (0.8-1.1) Sodium Level 137 mmol/L (136-145) Potassium Level 3.9 mmol/L (3.5-5.1) Chloride Level 101 mmol/L (98-107) Carbon Dioxide Level 25 mmol/L (21-32) Anion Gap 11 (6-14) Blood Urea Nitrogen 15 mg/dL (8-26) Creatinine 1.0 mg/dL (0.7-1.3) Estimated GFR (Cockcroft-Gault) 77.6 BUN/Creatinine Ratio 15 (6-20) Glucose Level 147 mg/dL (70-99) Calcium Level 9.4 mg/dL (8.5-10.1) Total Bilirubin 0.7 mg/dL (0.2-1.0) Aspartate Amino Transf (AST/SGOT) 23 U/L (15-37) Alanine Aminotransferase (ALT/SGPT) 28 U/L (16-63) Alkaline Phosphatase 71 U/L (46-116) Total Protein 6.9 g/dL (6.4-8.2) Albumin 3.0 g/dL (3.4-5.0) Albumin/Globulin Ratio 0.8 (1.0-1.7) Glucose (Fingerstick) 142 mg/dL (70-99) 148 mg/dL (70-99) Medications Current Medications Aspirin (Children'S Aspirin) 324 mg 1X ONCE PO Last administered on at 09:23; Start 07/10/18 at 09:30; Stop 07/10/18 at 09:31; Status DC Morphine Sulfate (Morphine Sulfate) 2 mg 1X ONCE IV Last administered on 07/10at 09:25; Start 10/11/18 at 09:30; Stop 07/10/18 at 09:31; Status DC Morphine Sulfate (Morphine Sulfate) 2 mg STK-MED ONCE .ROUTE ; Start 07/10/18 at 09:23; Stop 07/10/18 at 09:24; Status DC Ondansetron HCl (Zofran) 4 mg STK-MED ONCE .ROUTE ; Start 07/10/18 at 09:23; Stop 07/10/18 at 09:24; Status DC Ondansetron HCl (Zofran) 4 mg 1X ONCE IM ; Start 07/10/18 at 09:30; Stop 08/17 at 09:31; Status DC Heparin Sodium (Porcine) (Heparin Sodium) 4,000 unit 1X ONCE IV Last administered on 07/10/18at 09:40; Start 07/10/18 at 09:30; Stop 07/10/18 at 09 :31; Status DC Ondansetron HCl (Zofran) 4 mg 1X ONCE IV ; Start 07/10/18 at 09:30; Stop 08/17 at 09:31; Status DC Morphine Sulfate (Morphine Sulfate) 4 mg 1X ONCE IV Last administered on 07/10at 09:35; Start 07/10/18 at 09:30; Stop 07/10/18 at 09:33; Status DC Morphine Sulfate (Morphine Sulfate) 4 mg STK-MED ONCE .ROUTE ; Start 07/10/18 at 09:31; Stop 07/10/18 at 09:32; Status DC Diltiazem HCl (Cardizem) 10 mg 1X ONCE IVP Last administered on 07/10/18at 09: 37; Start 07/10/18 at 09:45; Stop 07/10/18 at 09:46; Status DC Diltiazem HCl (Cardizem) 25 mg STK-MED ONCE .ROUTE ; Start 07/10/18 at 09:33; Stop 07/10/18 at 09:34; Status DC Heparin Sodium/ Dextrose 500 ml @ 20 mls/hr CONT PRN IV SEE I/O RECORD Last administered on 07/11/18at 23:28; Start 07/10/18 at 09:45; Stop 07/12/18 at 08 :00; Status DC Diltiazem HCl 125 mg/Dextrose 125 ml @ 0 mls/hr CONT PRN IV SEE I/O RECORD Last administered on 07/10/18at 09:56; Start 07/10/18 at 09:45 Sodium Chloride 1,000 ml @ 75 mls/hr 1X ONCE IV Last administered on at 10:05; Start 07/10/18 at 10:00; Stop 07/10/18 at 23:19; Status DC Info (Anti-Coagulation Monitoring By Pharmacy) 1 each PRN DAILY PRN MC SEE COMMENTS Last administered on 07/11/18at 11:16; Start 07/10/18 at 10:00; Stop 07/11/18 at 14:31; Status DC Amiodarone HCl 150 mg/Dextrose 103 ml @ 618 mls/hr 1X ONCE IV Last administered on 07/10/18at 10:18; Start 07/10/18 at 10:00; Stop 07/10/18 at 10 :09; Status DC Ondansetron HCl (Zofran) 4 mg PRN Q8HRS PRN IV NAUSEA/VOMITING; Start at 10:00; Stop 07/11/18 at 09:59; Status DC Morphine Sulfate (Morphine Sulfate) 4 mg PRN Q2HR PRN IV PAIN; Start 07/10/18 at 10:00; Stop 07/11/18 at 09:59; Status DC Morphine Sulfate (Morphine Sulfate) 2 mg 1X ONCE IV ; Start 07/10/18 at 10:00 ; Stop 07/10/18 at 10:01; Status DC Ondansetron HCl (Zofran) 4 mg 1X ONCE IV ; Start 07/10/18 at 10:00; Stop 08/17 at 10:01; Status DC Fentanyl Citrate (Fentanyl 2ml Vial) 75 mcg 1X ONCE IV Last administered on at 10:24; Start 07/10/18 at 10:15; Stop 07/10/18 at 10:16; Status DC Midazolam HCl (Versed) 5 mg 1X ONCE IV Last administered on 07/10/18at 10:25; Start 07/10/18 at 10:15; Stop 07/10/18 at 10:16; Status DC Midazolam HCl (Versed) 2 mg STK-MED ONCE .ROUTE ; Start 07/10/18 at 10:13; Stop 07/10/18 at 10:14; Status DC Fentanyl Citrate (Fentanyl 2ml Vial) 100 mcg STK-MED ONCE .ROUTE ; Start at 10:13; Stop 07/10/18 at 10:14; Status DC Amiodarone HCl 900 mg/Dextrose 518 ml @ 0 mls/hr CONT PRN IV SEE I/O RECORD Last administered on 07/10/18at 10:38; Start 07/10/18 at 10:30; Stop 07/10/18 at 10:40; Status DC Amiodarone HCl 150 mg/Dextrose 103 ml @ 618 mls/hr 1X ONCE IV ; Start at 10:30; Stop 07/10/18 at 10:39; Status UNV Amiodarone HCl (Cordarone) 150 mg STK-MED ONCE .ROUTE ; Start 07/10/18 at 10:31 ; Stop 07/10/18 at 10:32; Status Cancel Amiodarone HCl (Cordarone) 150 mg 1X ONCE IVP Last administered on 07/10/18at 10:07; Start 07/10/18 at 11:15; Stop 07/10/18 at 11:16; Status DC Digoxin (Lanoxin) 500 mcg 1X ONCE IV Last administered on 07/10/18at 11:35; Start 07/10/18 at 11:30; Stop 07/10/18 at 11:31; Status DC Amiodarone HCl 150 mg/Dextrose 103 ml @ 618 mls/hr 1X ONCE IV Last administered on 07/10/18at 13:07; Start 07/10/18 at 12:45; Stop 07/10/18 at 12 :54; Status DC Magnesium Sulfate 50 ml @ 25 mls/hr 1X ONCE IV Last administered on at 13:49; Start 07/10/18 at 13:45; Stop 07/10/18 at 15:44; Status DC Aspirin (Ecotrin) 81 mg DAILYWBKFT PO ; Start 07/11/18 at 08:00; Stop at 10:26; Status DC Clopidogrel Bisulfate (Plavix) 75 mg DAILY PO Last administered on 07/12/18at 08:38; Start 07/11/18 at 09:00 Gabapentin (Neurontin) 100 mg BID PO Last administered on 07/12/18at 08:38; Start 07/11/18 at 09:00 Ranolazine (Ranexa) 500 mg BID PO Last administered on 07/12/18at 08:37; Start 07/11/18 at 09:00 Non-Formulary Medication (Albuterol Sulfate (Proair Respiclick)) 1 puff PRN Q6HRS PRN IH SHORTNESS OF BREATH; Start 07/10/18 at 14:00; Stop 07/10/18 at 14:33; Status DC Carvedilol (Coreg) 25 mg BIDWMEALS PO ; Start 07/11/18 at 08:00; Stop at 08:00; Status DC Non-Formulary Medication (Fluticasone/ Salmeterol (Advair 100-50 Diskus)) 1 inh BID IH ; Start 07/10/18 at 21:00; Stop 07/10/18 at 21:00; Status DC Isosorbide Mononitrate (Imdur) 60 mg DAILY PO Last administered on 07/12/18at 08:38; Start 07/11/18 at 09:00 Atorvastatin Calcium (Lipitor) 10 mg QHS PO Last administered on 07/11/18at 21: 25; Start 07/10/18 at 21:00 Metformin HCl (Glucophage) 1,000 mg DAILYWBKFT PO Last administered on at 08:34; Start 07/11/18 at 08:00 Losartan Potassium (Cozaar) 100 mg DAILY PO Last administered on 07/12/18at 08: 38; Start 07/11/18 at 09:00 Albuterol Sulfate (Ventolin Neb Soln) 2.5 mg PRN Q6HRS PRN NEB SHORTNESS OF BREATH; Start 07/10/18 at 14:30 Albuterol Sulfate (Ventolin Neb Soln) 2.5 mg Q6HRS NEB Last administered on at 12:08; Start 07/11/18 at 06:00 Budesonide (Pulmicort) 0.5 mg RTBID NEB Last administered on 07/12/18at 08:06; Start 07/11/18 at 08:00 Adenosine (Adenocard) 6 mg 1X ONCE IV Last administered on 07/10/18at 14:57; Start 07/10/18 at 15:00; Stop 07/10/18 at 15:01; Status DC Digoxin (Lanoxin) 250 mcg 1X ONCE IV Last administered on 07/10/18at 15:40; Start 07/10/18 at 15:15; Stop 07/10/18 at 15:16; Status DC Sotalol HCl (Betapace) 80 mg Q8HRS PO Last administered on 07/12/18at 06:10; Start 07/10/18 at 16:00; Stop 07/12/18 at 12:01; Status DC Heparin Sodium (Porcine) (Heparin Sodium) 3,000 unit 1X ONCE IV Last administered on 07/10/18at 21:57; Start 07/10/18 at 22:00; Stop 07/10/18 at 22 :01; Status DC Amiodarone HCl 900 mg/Dextrose 518 ml @ 0 mls/hr CONT PRN IV SEE I/O RECORD; Start 07/10/18 at 21:30; Status Cancel Sodium Chloride 1,000 ml @ 75 mls/hr [id number] IV Last administered on at 21:56; Start 07/10/18 at 22:00; Stop 07/12/18 at 12:01; Status DC Amiodarone HCl (Cordarone) 400 mg BID PO Last administered on 07/12/18at 08:36 ; Start 07/11/18 at 09:00 Warfarin Sodium (Coumadin) 10 mg 1X ONCE PO Last administered on 07/11/18at 17 :41; Start 07/11/18 at 16:00; Stop 07/11/18 at 16:01; Status DC Aspirin (Ecotrin) 81 mg DAILYWBKFT PO Last administered on 07/12/18at 08:34; Start 07/11/18 at 10:30 Warfarin Sodium (Coumadin Per Physician) 1 each PRN DAILY PRN MC SEE COMMENTS Last administered on 07/12/18at 10:35; Start 07/11/18 at 10:30 Furosemide (Lasix) 40 mg 1X ONCE IVP Last administered on 07/11/18at 14:47; Start 07/11/18 at 14:30; Stop 07/11/18 at 14:33; Status DC Sotalol HCl (Betapace) 80 mg BID PO ; Start 10/13/18 at 21:00 Warfarin Sodium (Coumadin) 7.5 mg 1X ONCE PO ; Start 07/12/18 at 16:00; Stop 07/12/18 at 16:01 Active Scripts Active Reported Proair Respiclick (Albuterol Sulfate) 90 Mcg Aer.pow.ba 1 Puff IH PRN Q6HRS PRN Advair 100-50 Diskus (Fluticasone/Salmeterol) 1 Each Disk.w.dev 1 Inh IH BID Gabapentin 100 Mg Capsule 100 Mg PO BID Metformin Hcl Er (Metformin Hcl) 1,000 Mg Tab.er.24 1,000 Mg PO DAILYWBKFT Doxycycline Monohydrate 100 Mg Capsule 100 Mg PO BID Clopidogrel (Clopidogrel Bisulfate) 75 Mg Tablet 75 Mg PO DAILY Ecotrin (Aspirin) 325 Mg Tablet.dr 81 Mg PO DAILY Ranexa (Ranolazine) 500 Mg Tab.er.12h 1 Tab PO BID Carvedilol 25 Mg Tablet 25 Mg PO BID Isosorbide Mononitrate Er (Isosorbide Mononitrate) 60 Mg Tab.er.24h 60 Mg PO DAILY Lovastatin 40 Mg Tablet 40 Mg PO HS Benicar (Olmesartan Medoxomil) 20 Mg Tablet 40 Mg PO DAILY Vitals/I & O Vital Sign - Last 24 Hours 07/11/18 07/11/18 07/11/18 07/11/18 13:40 16:00 19:22 19:30 Temp 98.4 98.4 Pulse 64 62 Resp 20 B/P (MAP) 104/68 114/77 (89) Pulse Ox 98 99 O2 Delivery Room Air Room Air Room Air 07/11/18 07/11/18 07/11/18 07/11/18 20:00 21:24 21:25 22:22 Temp 99.0 99.0 Pulse 62 62 62 63 Resp 20 B/P (MAP) 100/66 (77) 100/66 100/66 130/79 Pulse Ox 98 O2 Delivery Room Air 07/12/18 07/12/18 07/12/18 07/12/18 00:00 01:40 04:18 06:10 Temp 98.9 97.5 98.9 97.5 Pulse 61 70 61 Resp 16 16 B/P (MAP) 101/65 (77) 127/75 (92) 119/76 Pulse Ox 98 99 96 O2 Delivery Room Air Room Air Room Air 07/12/18 07/12/18 07/12/18 07/12/18 08:08 08:09 08:10 08:25 Pulse 62 Resp 18 B/P (MAP) 123/81 (95) Pulse Ox 97 97 95 O2 Delivery Room Air Room Air Room Air 07/12/18 07/12/18 07/12/18 07/12/18 08:36 08:37 08:38 08:38 Pulse 69 69 57 65 07/12/18 07/12/18 07/12/18 10:50 12:05 12:09 Temp 98.8 98.8 Pulse 62 61 Resp 18 B/P (MAP) 112/69 (83) O2 Delivery Room Air Intake and Output 07/11/18 07/11/18 07/12/18 15:00 23:00 07:00 Intake Total 750 ml 1220 ml Balance 750 ml 1220 ml BASIM SANTO MD Jul 12, 2018 13:21
[2018-07-12] MEDS ORDERED: WARFARIN 7.5 MG TABLET. PO ONE (16:00)
[2018-07-12] MEDS: ATORVASTATIN CALCIUM 10 MG TABLET. PO SCH (20:33)
[2018-07-13] VITALS (7 sets, daily range): BP systolic 113–144; BP diastolic 70–109
[2018-07-13] MEDS: ALBUTEROL SULFATE 2.5 MG/3 ML NEBU. NEB SCH ×5 (00:20→23:30)
[2018-07-13 05:24] LABS: HEMATOCRIT 40.7 % (39.0-53.0); HEMOGLOBIN 13.9 g/dL (13.0-17.5); RED BLOOD COUNT 4.57 x10^6/uL (4.30-5.70); RED CELL DISTRIBUTION WIDTH 13.7 % (11.5-14.5); WHITE BLOOD COUNT 11.3 x10^3/uL (4.0-11.0)
[2018-07-13 05:39] LABS: PROTHROMBIN TIME PATIENT 17.9 SEC (11.7-14.0)
[2018-07-13] MEDS: GABAPENTIN 100 MG CAPSULE. PO SCH ×2 (08:32→21:01)
[2018-07-13] MEDS: LOSARTAN POTASSIUM 50 MG TABLET. PO SCH (08:33)
[2018-07-13] MEDS: RANOLAZINE 500 MG TAB.ER.12H PO SCH ×2 (08:33→21:00)
[2018-07-13] MEDS: CLOPIDOGREL BISULFATE 75 MG TABLET PO SCH (08:33)
[2018-07-13] MEDS: ISOSORBIDE MONONITRATE ER 30 MG TAB.ER.24H PO SCH (08:35)
[2018-07-13] MEDS: metFORMIN 500 MG TABLET PO SCH (08:35)
[2018-07-13] MEDS: AMIODARONE HCL 200 MG TABLET. PO SCH ×2 (08:36→21:01)
[2018-07-13] MEDS: BUDESONIDE 0.5 MG/2 ML NEBU. NEB SCH ×2 (08:36→20:46)
[2018-07-13] MEDS: SOTALOL 80 MG TABLET. PO SCH ×2 (08:36→21:01)
[2018-07-13] MEDS: ASPIRIN ENTERIC COATED 81 MG TABLET.DR. PO SCH (08:36)
[2018-07-13] MEDS ORDERED: WARFARIN 7.5 MG TABLET. PO ONE (17:15)
--- NOTE | 2018-07-13 17:19 | PDOC ---
PROGRESS NOTES Subjective Subjective Patient feels better today. Rhythm is paced at this point. INR is only 1.5. Objective Objective Vital Signs Date Time Temp Pulse Resp B/P (MAP) Pulse Ox O2 Delivery O2 Flow Rate FiO2 07/13/18 14:47 98.2 69 18 117/77 (90) 98 Room Air 98.2 07/11/18 01:00 4.0 Intake and Output 07/13/18 07:00 Intake Total 2650 ml Output Total 4 ml Balance 2646 ml Intake Oral 2650 ml Output Urine Total 4 ml # Voids 4 # Bowel Movements 2 Physical Exam Physical Exam No significant changes cardiac exam Assessment Assessment Patient progressing slowly. I would like to keep him monitored for 24 hours more and get him to be up and about to make sure that we don't have further issues with the rhythm. If the rhythm is stable home in a.m. We will give him 7.5 mg warfarin today. I am going to set up for him to be seen by an supervisor powder and primer canning soon after discharge Comment Review of Relevant I have reviewed the following items garett (where applicable) has been applied. Labs Laboratory Tests Test 07/12/18 05:00 07/12/18 08:31 07/12/18 11:45 07/12/18 17:05 White Blood Count 11.6 x10^3/uL (4.0-11.0) Red Blood Count 4.63 x10^6/uL (4.30-5.70) Hemoglobin 14.2 g/dL (13.0-17.5) Hematocrit 41.0 % (39.0-53.0) Mean Corpuscular Volume 89 fL (79-100) Mean Corpuscular Hemoglobin 31 pg (25-35) Mean Corpuscular Hemoglobin Concent 35 g/dL (31-37) Red Cell Distribution Width 14.0 % (11.5-14.5) Platelet Count 162 x10^3/uL (140-400) Prothrombin Time 13.6 SEC (11.7-14.0) Prothromb Time International Ratio 1.1 (0.8-1.1) Sodium Level 137 mmol/L (136-145) Potassium Level 3.9 mmol/L (3.5-5.1) Chloride Level 101 mmol/L (98-107) Carbon Dioxide Level 25 mmol/L (21-32) Anion Gap 11 (6-14) Blood Urea Nitrogen 15 mg/dL (8-26) Creatinine 1.0 mg/dL (0.7-1.3) Estimated GFR (Cockcroft-Gault) 77.6 BUN/Creatinine Ratio 15 (6-20) Glucose Level 147 mg/dL (70-99) Calcium Level 9.4 mg/dL (8.5-10.1) Total Bilirubin 0.7 mg/dL (0.2-1.0) Aspartate Amino Transf (AST/SGOT) 23 U/L (15-37) Alanine Aminotransferase (ALT/SGPT) 28 U/L (16-63) Alkaline Phosphatase 71 U/L (46-116) Total Protein 6.9 g/dL (6.4-8.2) Albumin 3.0 g/dL (3.4-5.0) Albumin/Globulin Ratio 0.8 (1.0-1.7) Glucose (Fingerstick) 142 mg/dL (70-99) 148 mg/dL (70-99) 178 mg/dL (70-99) Test 07/12/18 20:39 07/13/18 04:45 07/13/18 07:35 07/13/18 11:19 Glucose (Fingerstick) 139 mg/dL (70-99) 144 mg/dL (70-99) 180 mg/dL (70-99) White Blood Count 11.3 x10^3/uL (4.0-11.0) Red Blood Count 4.57 x10^6/uL (4.30-5.70) Hemoglobin 13.9 g/dL (13.0-17.5) Hematocrit 40.7 % (39.0-53.0) Mean Corpuscular Volume 89 fL (79-100) Mean Corpuscular Hemoglobin 30 pg (25-35) Mean Corpuscular Hemoglobin Concent 34 g/dL (31-37) Red Cell Distribution Width 13.7 % (11.5-14.5) Platelet Count 152 x10^3/uL (140-400) Prothrombin Time 17.9 SEC (11.7-14.0) Prothromb Time International Ratio 1.5 (0.8-1.1) Test 07/13/18 17:08 Glucose (Fingerstick) 117 mg/dL (70-99) Laboratory Tests Test 07/12/18 20:39 07/13/18 04:45 07/13/18 07:35 07/13/18 11:19 Glucose (Fingerstick) 139 mg/dL (70-99) 144 mg/dL (70-99) 180 mg/dL (70-99) White Blood Count 11.3 x10^3/uL (4.0-11.0) Red Blood Count 4.57 x10^6/uL (4.30-5.70) Hemoglobin 13.9 g/dL (13.0-17.5) Hematocrit 40.7 % (39.0-53.0) Mean Corpuscular Volume 89 fL (79-100) Mean Corpuscular Hemoglobin 30 pg (25-35) Mean Corpuscular Hemoglobin Concent 34 g/dL (31-37) Red Cell Distribution Width 13.7 % (11.5-14.5) Platelet Count 152 x10^3/uL (140-400) Prothrombin Time 17.9 SEC (11.7-14.0) Prothromb Time International Ratio 1.5 (0.8-1.1) Test 07/13/18 17:08 Glucose (Fingerstick) 117 mg/dL (70-99) Medications Current Medications Aspirin (Children'S Aspirin) 324 mg 1X ONCE PO Last administered on at 09:23; Start 07/10/18 at 09:30; Stop 07/10/18 at 09:31; Status DC Morphine Sulfate (Morphine Sulfate) 2 mg 1X ONCE IV Last administered on 07/10at 09:25; Start 07/10/18 at 09:30; Stop 07/10/18 at 09:31; Status DC Morphine Sulfate (Morphine Sulfate) 2 mg STK-MED ONCE .ROUTE ; Start 07/10/18 at 09:23; Stop 07/10/18 at 09:24; Status DC Ondansetron HCl (Zofran) 4 mg STK-MED ONCE .ROUTE ; Start 07/10/18 at 09:23; Stop 07/10/18 at 09:24; Status DC Ondansetron HCl (Zofran) 4 mg 1X ONCE IM ; Start 07/10/18 at 09:30; Stop 08/17 at 09:31; Status DC Heparin Sodium (Porcine) (Heparin Sodium) 4,000 unit 1X ONCE IV Last administered on 07/10/18at 09:40; Start 07/10/18 at 09:30; Stop 07/10/18 at 09 :31; Status DC Ondansetron HCl (Zofran) 4 mg 1X ONCE IV ; Start 07/10/18 at 09:30; Stop 08/17 at 09:31; Status DC Morphine Sulfate (Morphine Sulfate) 4 mg 1X ONCE IV Last administered on 07/10at 09:35; Start 07/10/18 at 09:30; Stop 07/10/18 at 09:33; Status DC Morphine Sulfate (Morphine Sulfate) 4 mg STK-MED ONCE .ROUTE ; Start 07/10/18 at 09:31; Stop 07/10/18 at 09:32; Status DC Diltiazem HCl (Cardizem) 10 mg 1X ONCE IVP Last administered on 07/10/18at 09: 37; Start 07/10/18 at 09:45; Stop 07/10/18 at 09:46; Status DC Diltiazem HCl (Cardizem) 25 mg STK-MED ONCE .ROUTE ; Start 07/10/18 at 09:33; Stop 07/10/18 at 09:34; Status DC Heparin Sodium/ Dextrose 500 ml @ 20 mls/hr CONT PRN IV SEE I/O RECORD Last administered on 07/11/18at 23:28; Start 07/10/18 at 09:45; Stop 07/12/18 at 08 :00; Status DC Diltiazem HCl 125 mg/Dextrose 125 ml @ 0 mls/hr CONT PRN IV SEE I/O RECORD Last administered on 07/10/18at 09:56; Start 07/10/18 at 09:45 Sodium Chloride 1,000 ml @ 75 mls/hr 1X ONCE IV Last administered on at 10:05; Start 07/10/18 at 10:00; Stop 07/10/18 at 23:19; Status DC Info (Anti-Coagulation Monitoring By Pharmacy) 1 each PRN DAILY PRN MC SEE COMMENTS Last administered on 07/11/18at 11:16; Start 07/10/18 at 10:00; Stop 07/11/18 at 14:31; Status DC Amiodarone HCl 150 mg/Dextrose 103 ml @ 618 mls/hr 1X ONCE IV Last administered on 07/10/18at 10:18; Start 07/10/18 at 10:00; Stop 07/10/18 at 10 :09; Status DC Ondansetron HCl (Zofran) 4 mg PRN Q8HRS PRN IV NAUSEA/VOMITING; Start at 10:00; Stop 07/11/18 at 09:59; Status DC Morphine Sulfate (Morphine Sulfate) 4 mg PRN Q2HR PRN IV PAIN; Start 07/10/18 at 10:00; Stop 07/11/18 at 09:59; Status DC Morphine Sulfate (Morphine Sulfate) 2 mg 1X ONCE IV ; Start 07/10/18 at 10:00 ; Stop 07/10/18 at 10:01; Status DC Ondansetron HCl (Zofran) 4 mg 1X ONCE IV ; Start 07/10/18 at 10:00; Stop 08/17 at 10:01; Status DC Fentanyl Citrate (Fentanyl 2ml Vial) 75 mcg 1X ONCE IV Last administered on at 10:24; Start 07/10/18 at 10:15; Stop 07/10/18 at 10:16; Status DC Midazolam HCl (Versed) 5 mg 1X ONCE IV Last administered on 07/10/18at 10:25; Start 07/10/18 at 10:15; Stop 07/10/18 at 10:16; Status DC Midazolam HCl (Versed) 2 mg STK-MED ONCE .ROUTE ; Start 07/10/18 at 10:13; Stop 07/10/18 at 10:14; Status DC Fentanyl Citrate (Fentanyl 2ml Vial) 100 mcg STK-MED ONCE .ROUTE ; Start at 10:13; Stop 07/10/18 at 10:14; Status DC Amiodarone HCl 900 mg/Dextrose 518 ml @ 0 mls/hr CONT PRN IV SEE I/O RECORD Last administered on 07/10/18at 10:38; Start 07/10/18 at 10:30; Stop 07/10/18 at 10:40; Status DC Amiodarone HCl 150 mg/Dextrose 103 ml @ 618 mls/hr 1X ONCE IV ; Start at 10:30; Stop 07/10/18 at 10:39; Status UNV Amiodarone HCl (Cordarone) 150 mg STK-MED ONCE .ROUTE ; Start 07/10/18 at 10:31 ; Stop 07/10/18 at 10:32; Status Cancel Amiodarone HCl (Cordarone) 150 mg 1X ONCE IVP Last administered on 07/10/18at 10:07; Start 07/10/18 at 11:15; Stop 07/10/18 at 11:16; Status DC Digoxin (Lanoxin) 500 mcg 1X ONCE IV Last administered on 07/10/18at 11:35; Start 07/10/18 at 11:30; Stop 07/10/18 at 11:31; Status DC Amiodarone HCl 150 mg/Dextrose 103 ml @ 618 mls/hr 1X ONCE IV Last administered on 07/10/18at 13:07; Start 07/10/18 at 12:45; Stop 07/10/18 at 12 :54; Status DC Magnesium Sulfate 50 ml @ 25 mls/hr 1X ONCE IV Last administered on at 13:49; Start 07/10/18 at 13:45; Stop 07/10/18 at 15:44; Status DC Aspirin (Ecotrin) 81 mg DAILYWBKFT PO ; Start 07/11/18 at 08:00; Stop at 10:26; Status DC Clopidogrel Bisulfate (Plavix) 75 mg DAILY PO Last administered on 07/13/18at 08:33; Start 07/11/18 at 09:00 Gabapentin (Neurontin) 100 mg BID PO Last administered on 07/13/18at 08:32; Start 07/11/18 at 09:00 Ranolazine (Ranexa) 500 mg BID PO Last administered on 07/13/18at 08:33; Start 07/11/18 at 09:00 Non-Formulary Medication (Albuterol Sulfate (Proair Respiclick)) 1 puff PRN Q6HRS PRN IH SHORTNESS OF BREATH; Start 07/10/18 at 14:00; Stop 07/10/18 at 14:33; Status DC Carvedilol (Coreg) 25 mg BIDWMEALS PO ; Start 07/11/18 at 08:00; Stop at 08:00; Status DC Non-Formulary Medication (Fluticasone/ Salmeterol (Advair 100-50 Diskus)) 1 inh BID IH ; Start 07/10/18 at 21:00; Stop 07/10/18 at 21:00; Status DC Isosorbide Mononitrate (Imdur) 60 mg DAILY PO Last administered on 07/13/18at 08:35; Start 07/11/18 at 09:00 Atorvastatin Calcium (Lipitor) 10 mg QHS PO Last administered on 07/12/18at 20: 33; Start 07/10/18 at 21:00 Metformin HCl (Glucophage) 1,000 mg DAILYWBKFT PO Last administered on at 08:35; Start 07/11/18 at 08:00 Losartan Potassium (Cozaar) 100 mg DAILY PO Last administered on 07/13/18at 08: 33; Start 07/11/18 at 09:00 Albuterol Sulfate (Ventolin Neb Soln) 2.5 mg PRN Q6HRS PRN NEB SHORTNESS OF BREATH; Start 07/10/18 at 14:30 Albuterol Sulfate (Ventolin Neb Soln) 2.5 mg Q6HRS NEB Last administered on at 12:16; Start 07/11/18 at 06:00 Budesonide (Pulmicort) 0.5 mg RTBID NEB Last administered on 07/13/18at 08:36; Start 07/11/18 at 08:00 Adenosine (Adenocard) 6 mg 1X ONCE IV Last administered on 07/10/18at 14:57; Start 07/10/18 at 15:00; Stop 07/10/18 at 15:01; Status DC Digoxin (Lanoxin) 250 mcg 1X ONCE IV Last administered on 07/10/18at 15:40; Start 07/10/18 at 15:15; Stop 07/10/18 at 15:16; Status DC Sotalol HCl (Betapace) 80 mg Q8HRS PO Last administered on 07/12/18at 06:10; Start 07/10/18 at 16:00; Stop 07/12/18 at 12:01; Status DC Heparin Sodium (Porcine) (Heparin Sodium) 3,000 unit 1X ONCE IV Last administered on 07/10/18at 21:57; Start 07/10/18 at 22:00; Stop 07/10/18 at 22 :01; Status DC Amiodarone HCl 900 mg/Dextrose 518 ml @ 0 mls/hr CONT PRN IV SEE I/O RECORD; Start 07/10/18 at 21:30; Status Cancel Sodium Chloride 1,000 ml @ 75 mls/hr [id number] IV Last administered on at 21:56; Start 07/10/18 at 22:00; Stop 07/12/18 at 12:01; Status DC Amiodarone HCl (Cordarone) 400 mg BID PO Last administered on 07/13/18at 08:36 ; Start 07/11/18 at 09:00 Warfarin Sodium (Coumadin) 10 mg 1X ONCE PO Last administered on 07/11/18at 17 :41; Start 07/11/18 at 16:00; Stop 07/11/18 at 16:01; Status DC Aspirin (Ecotrin) 81 mg DAILYWBKFT PO Last administered on 07/13/18at 08:36; Start 07/11/18 at 10:30 Warfarin Sodium (Coumadin Per Physician) 1 each PRN DAILY PRN MC SEE COMMENTS Last administered on 07/13/18at 10:21; Start 07/11/18 at 10:30 Furosemide (Lasix) 40 mg 1X ONCE IVP Last administered on 07/11/18at 14:47; Start 07/11/18 at 14:30; Stop 07/11/18 at 14:33; Status DC Sotalol HCl (Betapace) 80 mg BID PO Last administered on 07/13/18at 08:36; Start 07/12/18 at 21:00 Warfarin Sodium (Coumadin) 7.5 mg 1X ONCE PO Last administered on 07/12/18at 16:20; Start 07/12/18 at 16:00; Stop 07/12/18 at 16:01; Status DC Warfarin Sodium (Coumadin) 7.5 mg 1X ONCE PO ; Start 07/13/18 at 17:15; Stop 07/13/18 at 17:16; Status DC Active Scripts Active Reported Proair Respiclick (Albuterol Sulfate) 90 Mcg Aer.pow.ba 1 Puff IH PRN Q6HRS PRN Advair 100-50 Diskus (Fluticasone/Salmeterol) 1 Each Disk.w.dev 1 Inh IH BID Gabapentin 100 Mg Capsule 100 Mg PO BID Metformin Hcl Er (Metformin Hcl) 1,000 Mg Tab.er.24 1,000 Mg PO DAILYWBKFT Doxycycline Monohydrate 100 Mg Capsule 100 Mg PO BID Clopidogrel (Clopidogrel Bisulfate) 75 Mg Tablet 75 Mg PO DAILY Ecotrin (Aspirin) 325 Mg Tablet.dr 81 Mg PO DAILY Ranexa (Ranolazine) 500 Mg Tab.er.12h 1 Tab PO BID Carvedilol 25 Mg Tablet 25 Mg PO BID Isosorbide Mononitrate Er (Isosorbide Mononitrate) 60 Mg Tab.er.24h 60 Mg PO DAILY Lovastatin 40 Mg Tablet 40 Mg PO HS Benicar (Olmesartan Medoxomil) 20 Mg Tablet 40 Mg PO DAILY Vitals/I & O Vital Sign - Last 24 Hours 07/12/18 07/12/18 07/12/18 07/12/18 18:00 19:45 20:00 20:06 Temp 97.6 98.8 97.6 98.8 Pulse 73 64 Resp 18 18 B/P (MAP) 136/91 (106) 125/76 (92) Pulse Ox 98 98 95 O2 Delivery Room Air Room Air Room Air 07/12/18 07/12/18 07/12/18 07/12/18 20:35 20:35 20:35 23:50 Temp 99.1 99.1 Pulse 64 64 64 63 Resp 20 B/P (MAP) 125/76 125/76 125/76 115/67 (83) Pulse Ox 95 O2 Delivery Room Air 07/13/18 07/13/18 07/13/18 07/13/18 00:20 03:25 07:31 07:54 Temp 98.5 98.6 98.5 98.6 Pulse 64 77 Resp 20 18 B/P (MAP) 130/85 (100) 144/109 (121) Pulse Ox 96 96 O2 Delivery Room Air Room Air Room Air Room Air 07/13/18 07/13/18 07/13/18 07/13/18 08:33 08:33 08:35 08:36 Pulse 77 77 77 77 B/P (MAP) 144/109 144/109 144/109 144/109 07/13/18 07/13/18 07/13/18 07/13/18 08:36 08:43 08:44 08:45 Pulse 77 B/P (MAP) 144/109 125/88 (100) Pulse Ox 96 96 O2 Delivery Room Air Room Air 07/13/18 07/13/18 07/13/18 10:34 12:16 14:47 Temp 98.4 98.2 98.4 98.2 Pulse 79 69 Resp 18 18 B/P (MAP) 131/85 (100) 117/77 (90) Pulse Ox 97 98 O2 Delivery Room Air Room Air Room Air Intake and Output 07/12/18 07/12/18 07/13/18 15:00 23:00 07:00 Intake Total 550 ml 2100 ml Output Total 4 ml Balance 550 ml 2096 ml BASIM SANTO MD Jul 13, 2018 17:19
[2018-07-13] MEDS: ATORVASTATIN CALCIUM 10 MG TABLET. PO SCH (21:01)
[2018-07-14 02:30] VITALS: BP 104/64
[2018-07-14 07:00] VITALS: BP 125/89
[2018-07-14] MEDS: RANOLAZINE 500 MG TAB.ER.12H PO SCH (08:42)
[2018-07-14] MEDS: LOSARTAN POTASSIUM 50 MG TABLET. PO SCH (08:43)
[2018-07-14] MEDS: GABAPENTIN 100 MG CAPSULE. PO SCH (08:43)
[2018-07-14] MEDS: CLOPIDOGREL BISULFATE 75 MG TABLET PO SCH (08:44)
[2018-07-14] MEDS: ASPIRIN ENTERIC COATED 81 MG TABLET.DR. PO SCH (08:44)
[2018-07-14] MEDS: AMIODARONE HCL 200 MG TABLET. PO SCH (08:44)
[2018-07-14] MEDS: metFORMIN 500 MG TABLET PO SCH (08:44)
[2018-07-14] MEDS: SOTALOL 80 MG TABLET. PO SCH (08:44)
[2018-07-14] MEDS: ISOSORBIDE MONONITRATE ER 30 MG TAB.ER.24H PO SCH (08:46)
[2018-07-14 08:48] LABS: PROTHROMBIN TIME PATIENT 24.2 SEC (11.7-14.0)
[2018-07-14] MEDS: ALBUTEROL SULFATE 2.5 MG/3 ML NEBU. NEB SCH (09:00)
[2018-07-14] MEDS: BUDESONIDE 0.5 MG/2 ML NEBU. NEB SCH (09:00)
[2018-07-14 11:00] VITALS: BP 115/76
--- NOTE | 2018-07-14 18:01 | PDOC3 ---
*Discharge Summary* Date of Admission: Jul 10, 2018 Date of Discharge: Jul 14, 2018 Admitting Diagnosis Wide QRS tachycardia Current myopathy Severe coronary artery disease Recent VA Min's syndrome Final Diagnosis Wide QRS tachycardia Atrial flutter with rapid ventricular response and aberrancy Severe coronary artery disease with an ischemic cardiomyopathy. Status post recent VA, non-STEMI. Min's syndrome Brief Hospital Course This patient is a 57-year-old gentleman that had been in the hospital recently following an VA with a non-STEMI. He has a known advanced ischemic cardiomyopathy and severe coronary artery disease with diffuse small vessel coronary artery disease. I had sent the patient for a heart transplant evaluation a few months ago and they had decided to just put a biventricular AICD pacemaker and treat him medically for now. After the recent discharge the patient was sent home and then he started feeling chest discomfort with palpitations and that Mary toledo was running in his chest and a headache this brought him to the emergency room where he was found to be in a wide QRS tachycardia. He was treated in the ER with medications and was not responding to treatment he started feeling lightheaded and I was concerned that he was going to be deteriorating into a different dysrhythmia and therefore I decided to go ahead and cardiovert him. To me it appears that he was in atrial flutter or atrial fibrillation with a rapid ventricular response but the rate gets only at about 146 and his AICD is set to 150 or above. The patient was given sedation and then a shock was given. The patient tolerated this rather well and came out into sinus rhythm. The AICD pacemaker was interrogated and we saw that the patient had been in atrial flutter with a rapid ventricular response. He then started running in and out of the A. fib flutter into sinus and back and forth. The patient was started on IV Cardizem and it did not do anything to control the rhythm he was given IV amiodarone and with this the rhythm appeared to be a little slower whenever he would go into the atrial fibrillation but he would not keep him in sinus rhythm. The patient was admitted to telemetry and he was anticoagulated and we tried different medications to try to control the rhythm and finally with using amiodarone and sotalol in combination we were able to get the rhythm controlled and at this point he is in a paced rhythm. The pacemaker AICD is functioning normally. The patient was started on warfarin and today the INR was finally above 2. Therefore was decided to discharge the patient today he is to go home on amiodarone 400 mg by mouth twice a day for 5 days and then reduce the dose to 200 mg once a day. He is to go home also on sotalol 80 mg by mouth twice a day and warfarin 5 mg by mouth daily. He is to have his INR checked in 3 days. I would like to send the patient to be evaluated with a possible electrophysiological studies and possible ablation by an production posting clerk. I would like to be able to have a tight control in this patient's rhythm because of his cardiomyopathy to try to avoid episodes of CHF. All of these things have been discussed with the patient as well as diet, activity, medications and follow-up. Patient was discharged today in stable condition. Home Meds Reported Medications Albuterol Sulfate (Proair Respiclick) 90 Mcg Aer.pow.ba, 1 PUFF IH PRN Q6HRS PRN for SHORTNESS OF BREATH, INHALER 07/06/18 Fluticasone/Salmeterol (ADVAIR 100-50 DISKUS) 1 Each Disk.w.dev, 1 INH IH BID, INHALER 07/06/18 Gabapentin (GABAPENTIN) 100 Mg Capsule, 100 MG PO BID, CAP 07/06/18 Metformin Hcl (METFORMIN HCL ER) 1,000 Mg Tab.er.24, 1000 MG PO DAILYWBKFT for ANTI-DIABETIC, TAB 0 Refills 07/06/18 Aspirin (ECOTRIN) 325 Mg Tablet.dr, 81 MG PO DAILY 09/12/16 Ranolazine (RANEXA) 500 Mg Tab.er.12h, 1 TAB PO BID, #60 TAB 3 Refills 09/12/16 Isosorbide Mononitrate (ISOSORBIDE MONONITRATE ER) 60 Mg Tab.er.24h, 60 MG PO DAILY, TAB.SR 02/19/15 Lovastatin (LOVASTATIN) 40 Mg Tablet, 40 MG PO HS, TAB 02/19/15 Discontinued Reported Medications Doxycycline Monohydrate (DOXYCYCLINE MONOHYDRATE) 100 Mg Capsule, 100 MG PO BID , CAP 07/06/18 Clopidogrel Bisulfate (CLOPIDOGREL) 75 Mg Tablet, 75 MG PO DAILY for TO PREVENT BLOOD CLOTS, #30 TAB 0 Refills 09/15/16 Carvedilol (CARVEDILOL) 25 Mg Tablet, 25 MG PO BID, TAB 05/24/15 Olmesartan Medoxomil (BENICAR) 20 Mg Tablet, 40 MG PO DAILY, TAB 02/19/15 Scheduled Aspirin (Ecotrin), 81 MG PO DAILY, (Reported) Fluticasone/Salmeterol (Advair 100-50 Diskus), 1 INH IH BID, (Reported) Gabapentin (Gabapentin), 100 MG PO BID, (Reported) Isosorbide Mononitrate (Isosorbide Mononitrate Er), 60 MG PO DAILY, (Reported) Lovastatin (Lovastatin), 40 MG PO HS, (Reported) Metformin Hcl (Metformin Hcl Er), 1,000 MG PO DAILYWBKFT, (Reported) Ranolazine (Ranexa), 1 TAB PO BID, (Reported) Scheduled PRN Albuterol Sulfate (Proair Respiclick), 1 PUFF IH PRN Q6HRS PRN for SHORTNESS OF BREATH, (Reported) Discontinued Medications Carvedilol (Carvedilol), 25 MG PO BID, (Reported) Clopidogrel Bisulfate (Clopidogrel), 75 MG PO DAILY, (Reported) Doxycycline Monohydrate (Doxycycline Monohydrate), 100 MG PO BID, (Reported) Olmesartan Medoxomil (Benicar), 40 MG PO DAILY, (Reported) Time Spent Total time spent with patient [] minutes for coordination of care, counseling, and education. BASIM SANTO MD Jul 14, 2018 18:01
== END 2018-07-14 13:00 | disposition home or self-care (01) | DRG 281 ==
LOC: ER 09:09 → 1 WEST ICU 09:50 → 2 NORTH 07-12 16:50
PROVIDERS: ADMIT Internal Medicine Cardiovascular Disease; ATTEND Internal Medicine Cardiovascular Disease
PROC: 4B02XTZ Measurement of Cardiac Defibrillator, External Approach (ICD-10-PCS; principal; 2018-07-10)
PROC: 5A2204Z Restoration of Cardiac Rhythm, Single (ICD-10-PCS; 2018-07-10)
DX: I21.4 Non-ST elevation (NSTEMI) myocardial infarction (principal); I48.92 Unspecified atrial flutter; I47.1 Supraventricular tachycardia; I24.1 Dressler's syndrome; I31.3 Pericardial effusion (noninflammatory); I48.91 Unspecified atrial fibrillation; I25.5 Ischemic cardiomyopathy; E78.00 Pure hypercholesterolemia, unspecified; M54.5 Low back pain; I73.9 Peripheral vascular disease, unspecified; J44.9 Chronic obstructive pulmonary disease, unspecified; K21.9 Gastro-esophageal reflux disease without esophagitis; E78.5 Hyperlipidemia, unspecified; I10 Essential (primary) hypertension; I25.10 Atherosclerotic heart disease of native coronary artery without angina pectoris; I25.2 Old myocardial infarction; Z79.01 Long term (current) use of anticoagulants; Z82.49 Family history of ischemic heart disease and other diseases of the circulatory system; Z95.5 Presence of coronary angioplasty implant and graft; Z95.1 Presence of aortocoronary bypass graft; Z88.8 Allergy status to other drugs, medicaments and biological substances; Z79.899 Other long term (current) drug therapy
CPT/HCPCS: 36415; 71045; 80047; 80053; 82553; 82962; 83735; 83880; 84484; 85025; 85027; 85520; 85610; 87641; 93005; 93306; 94640; 94760; 96365; 96366; 96375; 96376; J0153; J0282; J1160; J1644; J1940; J2250; J2270; J3010; J3475; J3490; J7613; J7626; 99285-25

== ENCOUNTER 2018-09-03 09:03 | Inpatient (IN) | payer OTHER ==
[~2018-09-03] VITALS: Ht 182.9 cm; Wt 119.4 kg
[2018-09-03] MEDS ORDERED: ASPIRIN 325 MG TABLET PO ONE (09:15)
[2018-09-03] MEDS ORDERED: MORPHINE SULFATE 2 MG/ML VIAL. IV ONE (09:15)
--- NOTE | 2018-09-03 09:18 | PHYS DOC ---
Past Medical History Past Medical History: High Cholesterol, Hypertension, [place] Past Surgical History: Coronary Bypass Surgery, Other Additional Past Surgical Histo: LEFT ARM SURGERY,CARDIAC STENTS X17 Alcohol Use: Occasionally Drug Use: None Adult General Chief Complaint Chief Complaint: CHEST PAIN HPI HPI Patient is a 57 year old male who presents complaining of 5 out of 10 sharp substernal chest pain nonradiating that began at 8:30 this morning. Patient states his pain is worse on deep breaths. Denies any pain relieving the pain. He states he tried taking nitroglycerin with no relief. He states he has been battling upper respiratory infection symptoms since June. He states in June when the upper respiratory infection symptoms began he was seen in the ED, he states he had a heart attack. He states he has had 14 heart attacks total and is currently on several medications including Coumadin. He states he was on antibiotics in July and was removed from the antibiotics because they felt the antibiotics were interfering with his Coumadin. Review of Systems Review of Systems Constitutional: Denies fever or chills [] Eyes: Denies change in visual acuity, redness, or eye pain [] HENT: Denies nasal congestion or sore throat [] Respiratory: Denies cough or shortness of breath [] Cardiovascular: Reports chest pain GI: Denies abdominal pain, nausea, vomiting, bloody stools or diarrhea [] : Denies dysuria or hematuria [] Musculoskeletal: Denies back pain or joint pain [] Integument: Denies rash or skin lesions [] Neurologic: Denies headache, focal weakness or sensory changes [] Endocrine: Denies polyuria or polydipsia [] All other systems were reviewed and found to be within normal limits, except as documented in this note. Current Medications Current Medications Current Medications Medications (Trade) Dose Ordered Sig/Kailey Start Time Stop Time Status Last Admin Dose Admin Aspirin (Ngoc Aspirin) 325 mg 1X ONCE 09/03/18 09:15 09/03/18 09:16 DC 09/03/18 09:45 325 MG Morphine Sulfate (Morphine Sulfate) 2 mg 1X ONCE 09/03/18 09:15 09/03/18 09:16 DC 09/03/18 10:04 2 MG Nitroglycerin (Nitrostat) 0.4 mg PRN Q5MIN PRN 09/03/18 09:15 09/04/18 09:14 09/03/18 09:59 0.4 MG Allergies Allergies Allergies Coded Allergies Type Severity Reaction Last Updated Verified hydrochlorothiazide Allergy Intermediate diarrhea 02/19/15 Yes Physical Exam Physical Exam Constitutional: Well developed, well nourished, no acute distress, non-toxic appearance. [] HENT: Normocephalic, atraumatic, bilateral external ears normal, oropharynx moist, no oral exudates, nose normal. [] Eyes: PERRLA, EOMI, conjunctiva normal, no discharge. [] Neck: Normal range of motion, no tenderness, supple, no stridor. [] Cardiovascular: Old healed midline chest incision. Heart rate regular rhythm, no murmur [] Lungs & Thorax: Bilateral breath sounds clear to auscultation [] Abdomen: Bowel sounds normal, soft, no tenderness, no masses, no pulsatile masses. [] Skin: Warm, dry, no erythema, no rash. [] Back: No tenderness, no CVA tenderness. [] Extremities: No tenderness, no cyanosis, no clubbing, ROM intact, no edema. [] Neurologic: Alert and oriented X 3, normal motor function, normal sensory function, no focal deficits noted. [] Psychologic: Affect normal, judgement normal, mood normal. [] Current Patient Data Vital Signs Vital Signs Date Time Temp Pulse Resp B/P (MAP) Pulse Ox O2 Delivery O2 Flow Rate FiO2 09/03/18 10:04 16 95 Room Air 09/03/18 09:59 70 137/84 09/03/18 09:06 98.0 98.0 Lab Values Laboratory Tests Test 09/03/18 09:20 White Blood Count 11.7 x10^3/uL (4.0-11.0) H Red Blood Count 4.75 x10^6/uL (4.30-5.70) Hemoglobin 14.6 g/dL (13.0-17.5) Hematocrit 42.6 % (39.0-53.0) Mean Corpuscular Volume 90 fL (79-100) Mean Corpuscular Hemoglobin 31 pg (25-35) Mean Corpuscular Hemoglobin Concent 34 g/dL (31-37) Red Cell Distribution Width 14.9 % (11.5-14.5) H Platelet Count 127 x10^3/uL (140-400) L Neutrophils (%) (Auto) 78 % (31-73) H Lymphocytes (%) (Auto) 13 % (24-48) L Monocytes (%) (Auto) 8 % (0-9) Eosinophils (%) (Auto) 1 % (0-3) Basophils (%) (Auto) 0 % (0-3) Neutrophils # (Auto) 9.1 x10^3uL (1.8-7.7) H Lymphocytes # (Auto) 1.5 x10^3/uL (1.0-4.8) Monocytes # (Auto) 0.9 x10^3/uL (0.0-1.1) Eosinophils # (Auto) 0.1 x10^3/uL (0.0-0.7) Basophils # (Auto) 0.0 x10^3/uL (0.0-0.2) Prothrombin Time 45.2 SEC (11.7-14.0) H Prothrombin Time INR 5.0 (0.8-1.1) *H PTT 74 SEC (24-38) H Sodium Level 139 mmol/L (136-145) Potassium Level 4.0 mmol/L (3.5-5.1) Chloride Level 102 mmol/L (98-107) Carbon Dioxide Level 29 mmol/L (21-32) Anion Gap 8 (6-14) Blood Urea Nitrogen 14 mg/dL (8-26) Creatinine 1.1 mg/dL (0.7-1.3) Estimated GFR (Cockcroft-Gault) 69.5 BUN/Creatinine Ratio 13 (6-20) Glucose Level 188 mg/dL (70-99) H Calcium Level 8.8 mg/dL (8.5-10.1) Magnesium Level 1.9 mg/dL (1.8-2.4) Total Bilirubin 1.5 mg/dL (0.2-1.0) H Aspartate Amino Transferase (AST) 14 U/L (15-37) L Alanine Aminotransferase (ALT) 26 U/L (16-63) Alkaline Phosphatase 63 U/L (46-116) Troponin I Quantitative 0.027 ng/mL (0.000-0.055) VT-Cij-X-Type Natriuretic Peptide 2494 pg/mL (0-124) H Total Protein 6.5 g/dL (6.4-8.2) Albumin 3.1 g/dL (3.4-5.0) L Albumin/Globulin Ratio 0.9 (1.0-1.7) L Thyroid Stimulating Hormone (TSH) 2.667 uIU/mL (0.358-3.74) Laboratory Tests 09/03/18 09:20 Laboratory Tests 09/03/18 09:20 EKG EKG Interpreted by Dr. Hopkins atrial paced ventricular rhythm with no acute ST specific changes. Radiology/Procedures Radiology/Procedures []PROCEDURE: PORTABLE CHEST 1V Portable chest, 09/03/2018: HISTORY: Mid chest pain Comparison is made to a study from 07/11/2018. A left-sided transvenous pacing device with [address] The heart is mildly enlarged. The pulmonary vascularity is within normal limits. No pulmonary infiltrate is seen. There is no evidence of pleural fluid. IMPRESSION: 1. Mild cardiomegaly. 2. No acute abnormality is detected. Electronically signed by: Tee Brito MD (09/03/2018 10:30 AM) [facility] DICTATED and SIGNED BY: TEE BRITO MD DATE: 09/03/18 1029 Course & Med Decision Making Course & Med Decision Making Pertinent Labs and Imaging studies reviewed. (See chart for details) This is a 57-year-old male patient with history of 14 heart attacks who presents today complaining of chest pain that began this morning. See history of present illness.. Spoke with Dr. Lindquist who accepted patient for admission. INR was 5.0, he requested we hold Coumadin. The rest of his workup was negative for any acute findings. Dragon Disclaimer Dragon Disclaimer This electronic medical record was generated, in whole or in part, using a voice recognition dictation system. Departure Departure Impression: Primary Impression: Elevated INR Additional Impressions: Chest pain Upper respiratory infection Disposition: ADMITTED INPATIENT Condition: STABLE Referrals: NILE GOODMAN MD (PCP) Problem Qualifiers Additional Impressions: Chest pain Chest pain type: unspecified Qualified Codes: R07.9 - Chest pain, unspecified Upper respiratory infection URI type: unspecified URI Qualified Codes: J06.9 - Acute upper respiratory infection, unspecified [employer] Sep 03, 2018 09:18
[2018-09-03 09:31] LABS: BASO % 0 % (0-3); EOS # 0.1 x10^3/uL (0.0-0.7); EOS % 1 % (0-3); HEMATOCRIT 42.6 % (39.0-53.0); HEMOGLOBIN 14.6 g/dL (13.0-17.5); LYMPH # 1.5 x10^3/uL (1.0-4.8); LYMPH % 13 % (24-48); MEAN CORPUSCULAR HEMOGLOBIN 31 pg (25-35); MEAN CORPUSCULAR HGB CONC 34 g/dL (31-37); MEAN CORPUSCULAR VOLUME 90 fL (79-100); MONO # 0.9 x10^3/uL (0.0-1.1); MONO % 8 % (0-9); NEUT # 9.1 x10^3uL (1.8-7.7); NEUT % 78 % (31-73); PLATELET COUNT 127 x10^3/uL (140-400); RED BLOOD COUNT 4.75 x10^6/uL (4.30-5.70); RED CELL DISTRIBUTION WIDTH 14.9 % (11.5-14.5); WHITE BLOOD COUNT 11.7 x10^3/uL (4.0-11.0)
[2018-09-03 09:42] LABS: CALCIUM 8.8 mg/dL (8.5-10.1); CREATININE 1.1 mg/dL (0.7-1.3); GFR 69.5
--- NOTE | 2018-09-03 09:42 | EKG ---
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
[2018-09-03] MEDS: NITROGLYCERIN SUBLINGUAL 0.4 MG BOTTLE OF 25. SL PRN ×3 (09:45→09:59)
[2018-09-03 09:48] LABS: ALBUMIN 3.1 g/dL (3.4-5.0); ALBUMIN/GLOBULIN RATIO 0.9 (1.0-1.7); MAGNESIUM 1.9 mg/dL (1.8-2.4); TOTAL BILIRUBIN 1.5 mg/dL (0.2-1.0); TOTAL PROTEIN 6.5 g/dL (6.4-8.2)
[2018-09-03 10:04] LABS: PROTHROMBIN TIME PATIENT 45.2 SEC (11.7-14.0)
[2018-09-03] MEDS ORDERED: WARF-31 PO (10:21)
--- NOTE | 2018-09-03 10:33 | RAD ---
Portable chest, 09/03/2018: HISTORY: Mid chest pain Comparison is made to a study from 07/11/2018. A left-sided transvenous pacing device with [address] The heart is mildly enlarged. The pulmonary vascularity is within normal limits. No pulmonary infiltrate is seen. There is no evidence of pleural fluid. IMPRESSION: 1. Mild cardiomegaly. 2. No acute abnormality is detected. Electronically signed by: Tee Brito MD (09/03/2018 10:30 AM) [facility]
[2018-09-03] MEDS ORDERED: METF500T16 PO (10:38)
[2018-09-03] MEDS ORDERED: ASPI-630 PO (10:38)
[2018-09-03] MEDS ORDERED: OLME40TA12 PO (10:38)
[2018-09-03] MEDS ORDERED: AMIO200T4 PO (10:38)
[2018-09-03] MEDS ORDERED: SOTA80TA48 PO (10:38)
[2018-09-03] MEDS ORDERED: MORPHINE SULFATE 4 MG/ML VIAL. IV PRN (11:15)
[2018-09-03] MEDS ORDERED: NITROGLYCERIN SUBLINGUAL 0.4 MG BOTTLE OF 25. SL PRN (11:15)
[2018-09-03] MEDS ORDERED: ACETAMINOPHEN 325 MG TABLET. PO PRN (11:15)
[2018-09-03] MEDS ORDERED: ONDANSETRON PF 4 MG/2 ML VIAL. IV PRN (11:15)
[2018-09-03] MEDS ORDERED: IOHEXOL 300 MG/ML 100ML VIAL. IV ONE (11:45)
[2018-09-03] MEDS ORDERED: CONTRAST GIVEN. MC PRN (11:45)
[2018-09-03 12:00] VITALS: BP 144/96
--- NOTE | 2018-09-03 12:26 | RAD ---
CT of the abdomen and pelvis with contrast, 09/03/2018: HISTORY: Abdominal distention, pain, nausea and vomiting Multidetector CT imaging was performed following an IV bolus injection of iodinated contrast material. No oral contrast material was administered for this study. There are small bilateral pleural effusions. There is mild interlobular septal thickening in the lung bases with mild dependent groundglass opacities suggesting mild edema. The heart is enlarged with coronary artery radiopacities. Transvenous pacing leads are in place. No hepatic abnormality is seen. The gallbladder is unremarkable. No pancreatic abnormality is detected. The spleen is of normal size. No renal or adrenal abnormality is detected. There is moderate aortoiliac calcific plaquing with mild dilatation of the infrarenal abdominal aorta. The aorta measures 3.4 x 3.3 cm on the axial scans. There is mild dilatation of the right distal common iliac artery which measures 2.3 cm in width. No abdominal or pelvic adenopathy is seen. There is abundant intra-abdominal fat. Colonic diverticula are present, most numerous in the proximal sigmoid region. At this level there is minimal mural thickening and faint streaky paracolic densities suggesting minimal inflammation or scarring. No paracolic fluid collection is seen. The bowel loops are not dilated. The appendix is visualized and shows no abnormality. No free air or free fluid is evident in the abdomen or pelvis. IMPRESSION: 1. Colonic diverticulosis with probable mild proximal sigmoid diverticulitis. 2. Small distal abdominal aortic aneurysm. 3. Mild basilar interstitial edema and small pleural effusions. Electronically signed by: Tee Brito MD (09/03/2018 12:23 PM) [facility]
--- NOTE | 2018-09-03 13:59 | PDOC1 ---
History and Physical Date of Admission Date of Admission DATE: 09/03/18 TIME: 13:56 Identification/Chief Complaint Chief Complaint Chest pain radiating to left shoulder and back. Source Source: Chart review, Patient History of Present Illness History of Present Illness 57 yo male with past medical history of CAD, HTN, hyperlipidemia, COPD, GERD, multiple heart attacks and peripheral neuropathy was admitted for chest pain that began this morning. Patient described the pain as "between sharp and dull feeling." He describes it as similar to pain he has had with past heart attacks. It radiates to his back at the midthoracic region and down his left shoulder. He states that the pain is constantly there. He states that putting his arms above his head worsens the pain. Morphine given in ER helped the pain but the nitroglycerin did nothing for it. Pain rates as a 3/4 out of 10. Patient states that for the past week he has been bloated with gas build up. The bloating began after discontinuing antibiotics he has been taking since June for an URI. He denies any changes in bowel movement frequency or consistency. He also denied nausea and vomiting. He states that since the bloating began he has noticed that he has become SOB both at rest and when active. He states that he can't take a deep breath in and feels better when he is sitting upright. Past Medical History Cardiovascular: CAD, HTN, [place], Hyperlipidemia, Other Pulmonary: COPD CENTRAL NERVOUS SYSTEM: Periperal neuropathy GI: GERD Musculoskeletal: low back pain Past Surgical History Past Surgical History: CABG, Hernia Repair, Other Family History Family History: Coronary Artery Disease Family History: Grandparents Social History Smoke: Quit (5 years prior, 30 pack year history) ALCOHOL: occassional Drugs: None Current Problem List Problem List Problems Medical Problems: (1) Chest pain Status: Acute (2) Upper respiratory infection Status: Acute Current Medications Current Medications Current Medications Aspirin (Ngoc Aspirin) 325 mg 1X ONCE PO Last administered on 09/03/18at 09:45 ; Start 09/03/18 at 09:15; Stop 09/03/18 at 09:16; Status DC Nitroglycerin (Nitrostat) 0.4 mg PRN Q5MIN PRN SL CP RATING > 1/10 Last administered on 09/03/18at 09:59; Start 09/03/18 at 09:15; Stop 09/03/18 at 13:29 ; Status DC Morphine Sulfate (Morphine Sulfate) 2 mg 1X ONCE IV Last administered on at 10:04; Start 09/03/18 at 09:15; Stop 09/03/18 at 09:16; Status DC Ondansetron HCl (Zofran) 4 mg PRN Q8HRS PRN IV NAUSEA/VOMITING; Start 09/03/18 at 11:15; Stop 09/04/18 at 11:14 Morphine Sulfate (Morphine Sulfate) 4 mg PRN Q2HR PRN IV PAIN; Start 09/03/18 at 11:15; Stop 09/04/18 at 11:14 Acetaminophen (Tylenol) 650 mg PRN Q4HRS PRN PO FEVER; Start 09/03/18 at 11:15 ; Stop 09/04/18 at 11:14 Nitroglycerin (Nitrostat) 0.4 mg PRN Q5MIN PRN SL CHEST PAIN; Start 09/03/18 at 11:15; Stop 09/04/18 at 11:14 Iohexol (Omnipaque 300 Mg/ml) 75 ml 1X ONCE IV Last administered on 09/03/18at 11:55; Start 09/03/18 at 11:45; Stop 09/03/18 at 11:46; Status DC Info (CONTRAST GIVEN -- Rx MONITORING) 1 each PRN DAILY PRN MC SEE COMMENTS; Start 09/03/18 at 11:45; Stop 09/05/18 at 11:44 Active Scripts Active Reported Benicar (Olmesartan Medoxomil) 40 Mg Tablet 40 Mg PO DAILY Sotalol (Sotalol Hcl) 80 Mg Tablet 1 Tab PO BID Metformin Hcl 500 Mg Tablet 500 Mg PO BIDWMEALS Aspirin 81 Mg Tab.chew 1 Tab PO DAILY Amiodarone Hcl 200 Mg Tablet 1 Tab PO DAILY Warfarin Sodium 5 Mg Tablet 2.5 Mg PO QODAY Warfarin Sodium 5 Mg Tablet 5 Mg PO QODAY Proair Respiclick (Albuterol Sulfate) 90 Mcg Aer.pow.ba 1 Puff IH PRN Q6HRS PRN Ranexa (Ranolazine) 500 Mg Tab.er.12h 1 Tab PO BID Isosorbide Mononitrate Er (Isosorbide Mononitrate) 60 Mg Tab.er.24h 60 Mg PO DAILY Lovastatin 40 Mg Tablet 40 Mg PO HS Allergies Allergies: Coded Allergies: hydrochlorothiazide (Verified Allergy, Intermediate, diarrhea, 02/19/15) Physical Exam General: Alert, Cooperative, No acute distress Lungs: Clear to auscultation Heart: S1S2, RRR, no thrills, no rubs, no gallops, no murmurs Abdomen: Normal bowel sounds, Other (distended, pain on deep palpation) Extremities: No tenderness/swelling Vitals Vitals Vital Signs Date Time Temp Pulse Resp B/P (MAP) Pulse Ox O2 Delivery O2 Flow Rate FiO2 09/03/18 11:50 68 20 137/88 (104) 96 Room Air 09/03/18 09:06 98.0 98.0 Labs Labs Laboratory Tests Test 09/03/18 09:20 09/03/18 13:02 White Blood Count 11.7 x10^3/uL (4.0-11.0) Red Blood Count 4.75 x10^6/uL (4.30-5.70) Hemoglobin 14.6 g/dL (13.0-17.5) Hematocrit 42.6 % (39.0-53.0) Mean Corpuscular Volume 90 fL (79-100) Mean Corpuscular Hemoglobin 31 pg (25-35) Mean Corpuscular Hemoglobin Concent 34 g/dL (31-37) Red Cell Distribution Width 14.9 % (11.5-14.5) Platelet Count 127 x10^3/uL (140-400) Neutrophils (%) (Auto) 78 % (31-73) Lymphocytes (%) (Auto) 13 % (24-48) Monocytes (%) (Auto) 8 % (0-9) Eosinophils (%) (Auto) 1 % (0-3) Basophils (%) (Auto) 0 % (0-3) Neutrophils # (Auto) 9.1 x10^3uL (1.8-7.7) Lymphocytes # (Auto) 1.5 x10^3/uL (1.0-4.8) Monocytes # (Auto) 0.9 x10^3/uL (0.0-1.1) Eosinophils # (Auto) 0.1 x10^3/uL (0.0-0.7) Basophils # (Auto) 0.0 x10^3/uL (0.0-0.2) Prothrombin Time 45.2 SEC (11.7-14.0) Prothromb Time International Ratio 5.0 (0.8-1.1) Activated Partial Thromboplast Time 74 SEC (24-38) Sodium Level 139 mmol/L (136-145) Potassium Level 4.0 mmol/L (3.5-5.1) Chloride Level 102 mmol/L (98-107) Carbon Dioxide Level 29 mmol/L (21-32) Anion Gap 8 (6-14) Blood Urea Nitrogen 14 mg/dL (8-26) Creatinine 1.1 mg/dL (0.7-1.3) Estimated GFR (Cockcroft-Gault) 69.5 BUN/Creatinine Ratio 13 (6-20) Glucose Level 188 mg/dL (70-99) Calcium Level 8.8 mg/dL (8.5-10.1) Magnesium Level 1.9 mg/dL (1.8-2.4) Total Bilirubin 1.5 mg/dL (0.2-1.0) Aspartate Amino Transf (AST/SGOT) 14 U/L (15-37) Alanine Aminotransferase (ALT/SGPT) 26 U/L (16-63) Alkaline Phosphatase 63 U/L (46-116) Troponin I Quantitative 0.027 ng/mL (0.000-0.055) 0.018 ng/mL (0.000-0.055) EU-Mfm-C-Type Natriuretic Peptide 2494 pg/mL (0-124) Total Protein 6.5 g/dL (6.4-8.2) Albumin 3.1 g/dL (3.4-5.0) Albumin/Globulin Ratio 0.9 (1.0-1.7) Thyroid Stimulating Hormone (TSH) 2.667 uIU/mL (0.358-3.74) Laboratory Tests Test 09/03/18 09:20 09/03/18 13:02 White Blood Count 11.7 x10^3/uL (4.0-11.0) Red Blood Count 4.75 x10^6/uL (4.30-5.70) Hemoglobin 14.6 g/dL (13.0-17.5) Hematocrit 42.6 % (39.0-53.0) Mean Corpuscular Volume 90 fL (79-100) Mean Corpuscular Hemoglobin 31 pg (25-35) Mean Corpuscular Hemoglobin Concent 34 g/dL (31-37) Red Cell Distribution Width 14.9 % (11.5-14.5) Platelet Count 127 x10^3/uL (140-400) Neutrophils (%) (Auto) 78 % (31-73) Lymphocytes (%) (Auto) 13 % (24-48) Monocytes (%) (Auto) 8 % (0-9) Eosinophils (%) (Auto) 1 % (0-3) Basophils (%) (Auto) 0 % (0-3) Neutrophils # (Auto) 9.1 x10^3uL (1.8-7.7) Lymphocytes # (Auto) 1.5 x10^3/uL (1.0-4.8) Monocytes # (Auto) 0.9 x10^3/uL (0.0-1.1) Eosinophils # (Auto) 0.1 x10^3/uL (0.0-0.7) Basophils # (Auto) 0.0 x10^3/uL (0.0-0.2) Prothrombin Time 45.2 SEC (11.7-14.0) Prothromb Time International Ratio 5.0 (0.8-1.1) Activated Partial Thromboplast Time 74 SEC (24-38) Sodium Level 139 mmol/L (136-145) Potassium Level 4.0 mmol/L (3.5-5.1) Chloride Level 102 mmol/L (98-107) Carbon Dioxide Level 29 mmol/L (21-32) Anion Gap 8 (6-14) Blood Urea Nitrogen 14 mg/dL (8-26) Creatinine 1.1 mg/dL (0.7-1.3) Estimated GFR (Cockcroft-Gault) 69.5 BUN/Creatinine Ratio 13 (6-20) Glucose Level 188 mg/dL (70-99) Calcium Level 8.8 mg/dL (8.5-10.1) Magnesium Level 1.9 mg/dL (1.8-2.4) Total Bilirubin 1.5 mg/dL (0.2-1.0) Aspartate Amino Transf (AST/SGOT) 14 U/L (15-37) Alanine Aminotransferase (ALT/SGPT) 26 U/L (16-63) Alkaline Phosphatase 63 U/L (46-116) Troponin I Quantitative 0.027 ng/mL (0.000-0.055) 0.018 ng/mL (0.000-0.055) DV-Yro-Q-Type Natriuretic Peptide 2494 pg/mL (0-124) Total Protein 6.5 g/dL (6.4-8.2) Albumin 3.1 g/dL (3.4-5.0) Albumin/Globulin Ratio 0.9 (1.0-1.7) Thyroid Stimulating Hormone (TSH) 2.667 uIU/mL (0.358-3.74) VTE Prophylaxis Ordered VTE Prophylaxis Devices: Yes VTE Pharmacological Prophylaxi: Yes Assessment/Plan Assessment/Plan 57 yo male with past medical history of CAD, HTN, hyperlipidemia, COPD, GERD, multiple heart attacks and peripheral neuropathy was admitted for chest pain that began this morning. Coagulopathy secondary to meds Abdominal and pelvic CT on 09/03 impression was colonic diverticulosis with probable mild proximal sigmoid diverticulitis Will consult with GI Continue to follow Troponin levels with serial measurements every 6 hours BASIM SANTO MD Sep 03, 2018 13:59
[2018-09-03 16:00] VITALS: BP 139/94
[2018-09-03] MEDS ORDERED: ALBUTEROL SULFATE 2.5 MG/3 ML NEBU. NEB PRN (18:45)
[2018-09-03] MEDS ORDERED: NON FORMULARY ITEM (Albuterol Sulfate (Proair Respiclick) 1 PUFF) IH PRN (18:45)
[2018-09-03] MEDS: BENZONATATE 100 MG CAPSULE. PO PRN (19:50)
[2018-09-03 20:00] VITALS: BP 138/93
[2018-09-03] MEDS ORDERED: LOSARTAN POTASSIUM 50 MG TABLET. PO ONE (20:00)
[2018-09-03] MEDS: SOTALOL 80 MG TABLET. PO SCH (21:07)
[2018-09-03] MEDS: RANOLAZINE 500 MG TAB.ER.12H PO SCH (21:08)
[2018-09-03] MEDS: ATORVASTATIN CALCIUM 10 MG TABLET. PO SCH (21:08)
[2018-09-03 21:23] LABS: BILIRUBIN,URINE NEGATIVE (NEG); CLARITY,URINE CLEAR; COLOR,URINE YELLOW; NITRITE,URINE NEGATIVE (NEG); PH,URINE 6.5; PROTEIN,URINE NEGATIVE (NEG-TRACE)
[2018-09-03 21:29] LABS: BARBITURATES NEG (NEG); BENZODIAZEPINES NEG (NEG); CANNABINOIDS NEG (NEG); COCAINE NEG (NEG); METHADONE NEG (NEG); OPIATES POS (NEG); PHENCYCLIDINE NEG (NEG)
[2018-09-03 21:30] LABS: AMPHETAMINE/METHAMPHETAMINE NEG (NEG)
[2018-09-03 21:32] LABS: BACTERIA,URINE 0 /HPF (0-FEW); WBC,URINE RARE /HPF (0-4)
[2018-09-04] VITALS (7 sets, daily range): BP systolic 105–149; BP diastolic 63–88
[2018-09-04 03:40] LABS: BASO % 0 % (0-3); EOS # 0.1 x10^3/uL (0.0-0.7); EOS % 1 % (0-3); HEMATOCRIT 39.5 % (39.0-53.0); HEMOGLOBIN 13.4 g/dL (13.0-17.5); LYMPH # 1.7 x10^3/uL (1.0-4.8); LYMPH % 21 % (24-48); MEAN CORPUSCULAR HEMOGLOBIN 31 pg (25-35); MEAN CORPUSCULAR HGB CONC 34 g/dL (31-37); MEAN CORPUSCULAR VOLUME 90 fL (79-100); MONO # 0.8 x10^3/uL (0.0-1.1); MONO % 10 % (0-9); NEUT # 5.5 x10^3uL (1.8-7.7); NEUT % 67 % (31-73); PLATELET COUNT 106 x10^3/uL (140-400); RED CELL DISTRIBUTION WIDTH 14.7 % (11.5-14.5); WHITE BLOOD COUNT 8.1 x10^3/uL (4.0-11.0)
[2018-09-04 03:54] LABS: ALBUMIN 2.7 g/dL (3.4-5.0); ALBUMIN/GLOBULIN RATIO 0.8 (1.0-1.7); CALCIUM 8.3 mg/dL (8.5-10.1); GFR 77.6; POTASSIUM 3.7 mmol/L (3.5-5.1); TOTAL BILIRUBIN 1.6 mg/dL (0.2-1.0); TOTAL PROTEIN 5.9 g/dL (6.4-8.2)
[2018-09-04] MEDS: RANOLAZINE 500 MG TAB.ER.12H PO SCH ×2 (08:59→20:49)
[2018-09-04] MEDS: ASPIRIN CHEWABLE 81 MG TABLET. PO SCH (09:00)
[2018-09-04] MEDS ORDERED: LOSARTAN POTASSIUM 50 MG TABLET. PO SCH (09:00)
[2018-09-04] MEDS: ISOSORBIDE MONONITRATE ER 30 MG TAB.ER.24H PO SCH (09:00)
[2018-09-04] MEDS: SOTALOL 80 MG TABLET. PO SCH ×2 (09:00→20:49)
[2018-09-04] MEDS: AMIODARONE HCL 200 MG TABLET. PO SCH (09:01)
[2018-09-04] MEDS: LOSARTAN POTASSIUM 50 MG TABLET. PO SCH (09:01)
[2018-09-04] MEDS: BENZONATATE 100 MG CAPSULE. PO PRN ×2 (09:06→20:48)
--- NOTE | 2018-09-04 09:08 | PDOC2 ---
GI CONSULT Reason For Consult: Diverticulosis HPI: HPI: Rebeca 57 y/o male seen this morning in ICU. Admitted through ER w/ chest pain radiating to left shoulder/arm that awoke him from sleep and was similar to previous MIs. On doxycycline since June for URI (describes cough w/ "white foam"), stopped on Saturday. On chronic Warfarin, past issues w/ elevated INR while on antibiotics. Additionally issues w/ bloating when on antibiotics in the past, improved w/ probiotics. Labs noteable for INR 5 (now 4), plt 106, bili 1.6. CT A/P noted colonic diverticulosis with probable mild proximal sigmoid diverticulitis, small distal abdominal aortic aneurysm, mild basilar interstitial edema and small pleural effusions, abundant intra-abdominal fat, and normal liver, gallbladder, and pancreas. Asked to see re: finding of probable diverticulitis. GI-esquivel has felt bloated (after eating, worse throughout the day) w/ associated tightness and shortness of breath since starting antibiotics. Has improved somewhat since stopped doxycycline and adding Activia, says was able to eat three meals yesterday. H/o GERD when he was younger and drinking too much while in the [employer]. He used to take famotidine not for GERD but "because of all the other medicines I was taking." Now only has reflux after overeating (names Thanksgiving and [place] - untreated) and dysphagia (midchest) w/ solids or liquids 1-2 times monthly, no regurg. His mom has severe GERD and he doesn't have it. Denies early satiety (though used to be able to eat a whole pizza and now can only eat three pieces) and weight loss. No n/v (though has a sensitive gas reflex w/ the "foam" he coughs up). Denies diarrhea or constipation. No hematochezia or melena. No previous EGD. Colonoscopy (per formed by Dr. Gruber for abdominal pain, hematochezia, and change in bowel habits) in 10/2008 showed erythema in distal descending colon (biopsy negative for pathology), 4mm polyp @ 20cm (path benign with "reactive lymphoid nodule"), Grade 2 internal hemorrhoids, and normal random random colon biopsy. No GB, liver, or pancreas history. PRN NSAID use for headaches. For "pre" DM has given up soda and now drinks iced tea - hears a lot of "sloshing" in his abdomen around 9:00 p.m. PMH: PMH: CAD s/p CABG and stents (says 19), AK (says 14), cardiomyopathy, HTN, HLD, COPD , ?RONY, pre-DM, GERD, diverticulosis, hemorrhoids, inguinal hernia repair (as a child), left arm surgery (ulcer nerve injury), AICD FH: Family History: CAD, Other (mother - GERD) Social History: Smoke: Quit ALCOHOL: occassional (couple beers here and there, used to drink heavily in [employer]) Drugs: None ROS: GEN: Denies fevers, chills, sweats HEENT: Denies blurred vision, sore throat CV: +chest pain RESP: +cough +SOA GI: Per HPI : Denies hematuria, dysuria ENDO: +weight gain NEURO: Denies confusion, dizziness MSK: Denies weakness, joint pain/swelling SKIN: Denies jaundice, pruritus Vitals: Vitals: Vital Signs Date Time Temp Pulse Resp B/P (MAP) Pulse Ox O2 Delivery O2 Flow Rate FiO2 09/04/18 09:01 67 130/77 09/04/18 08:07 96 Room Air 09/04/18 04:00 98.1 18 98.1 Labs: Labs: Laboratory Tests Test 09/03/18 09:20 09/03/18 13:02 09/03/18 15:15 09/03/18 21:15 White Blood Count 11.7 x10^3/uL (4.0-11.0) Red Blood Count 4.75 x10^6/uL (4.30-5.70) Hemoglobin 14.6 g/dL (13.0-17.5) Hematocrit 42.6 % (39.0-53.0) Mean Corpuscular Volume 90 fL (79-100) Mean Corpuscular Hemoglobin 31 pg (25-35) Mean Corpuscular Hemoglobin Concent 34 g/dL (31-37) Red Cell Distribution Width 14.9 % (11.5-14.5) Platelet Count 127 x10^3/uL (140-400) Neutrophils (%) (Auto) 78 % (31-73) Lymphocytes (%) (Auto) 13 % (24-48) Monocytes (%) (Auto) 8 % (0-9) Eosinophils (%) (Auto) 1 % (0-3) Basophils (%) (Auto) 0 % (0-3) Neutrophils # (Auto) 9.1 x10^3uL (1.8-7.7) Lymphocytes # (Auto) 1.5 x10^3/uL (1.0-4.8) Monocytes # (Auto) 0.9 x10^3/uL (0.0-1.1) Eosinophils # (Auto) 0.1 x10^3/uL (0.0-0.7) Basophils # (Auto) 0.0 x10^3/uL (0.0-0.2) Prothrombin Time 45.2 SEC (11.7-14.0) Prothromb Time International Ratio 5.0 (0.8-1.1) Activated Partial Thromboplast Time 74 SEC (24-38) Sodium Level 139 mmol/L (136-145) Potassium Level 4.0 mmol/L (3.5-5.1) Chloride Level 102 mmol/L (98-107) Carbon Dioxide Level 29 mmol/L (21-32) Anion Gap 8 (6-14) Blood Urea Nitrogen 14 mg/dL (8-26) Creatinine 1.1 mg/dL (0.7-1.3) Estimated GFR (Cockcroft-Gault) 69.5 BUN/Creatinine Ratio 13 (6-20) Glucose Level 188 mg/dL (70-99) Calcium Level 8.8 mg/dL (8.5-10.1) Magnesium Level 1.9 mg/dL (1.8-2.4) Total Bilirubin 1.5 mg/dL (0.2-1.0) Aspartate Amino Transf (AST/SGOT) 14 U/L (15-37) Alanine Aminotransferase (ALT/SGPT) 26 U/L (16-63) Alkaline Phosphatase 63 U/L (46-116) Troponin I Quantitative 0.027 ng/mL (0.000-0.055) 0.018 ng/mL (0.000-0.055) 0.026 ng/mL (0.000-0.055) FV-Lpv-A-Type Natriuretic Peptide 2494 pg/mL (0-124) Total Protein 6.5 g/dL (6.4-8.2) Albumin 3.1 g/dL (3.4-5.0) Albumin/Globulin Ratio 0.9 (1.0-1.7) Thyroid Stimulating Hormone (TSH) 2.667 uIU/mL (0.358-3.74) Urine Collection Type Unknown Urine Color Yellow Urine Clarity Clear Urine pH 6.5 Urine Specific [place] >=1.030 Urine Protein Negative mg/dL (NEG-TRACE) Urine Glucose (UA) 250 mg/dL (NEG) Urine Ketones (Stick) Negative mg/dL (NEG) Urine Blood Trace (NEG) Urine Nitrite Negative (NEG) Urine Bilirubin Negative (NEG) Urine Urobilinogen Dipstick 1.0 mg/dL (0.2 mg/dL) Urine Leukocyte Esterase Negative (NEG) Urine RBC 3-5 /HPF (0-2) Urine WBC Rare /HPF (0-4) Urine Squamous Epithelial Cells None /LPF Urine Bacteria 0 /HPF (0-FEW) Urine Mucus Slight /LPF Urine Opiates Screen Pos (NEG) Urine Methadone Screen Neg (NEG) Urine Barbiturates Neg (NEG) Urine Phencyclidine Screen Neg (NEG) Urine Amphetamine/Methamphetamine Neg (NEG) Urine Benzodiazepines Screen Neg (NEG) Urine Cocaine Screen Neg (NEG) Urine Cannabinoids Screen Neg (NEG) Urine Ethyl Alcohol Neg (NEG) Test 09/04/18 03:20 White Blood Count 8.1 x10^3/uL (4.0-11.0) Red Blood Count 4.40 x10^6/uL (4.30-5.70) Hemoglobin 13.4 g/dL (13.0-17.5) Hematocrit 39.5 % (39.0-53.0) Mean Corpuscular Volume 90 fL (79-100) Mean Corpuscular Hemoglobin 31 pg (25-35) Mean Corpuscular Hemoglobin Concent 34 g/dL (31-37) Red Cell Distribution Width 14.7 % (11.5-14.5) Platelet Count 106 x10^3/uL (140-400) Neutrophils (%) (Auto) 67 % (31-73) Lymphocytes (%) (Auto) 21 % (24-48) Monocytes (%) (Auto) 10 % (0-9) Eosinophils (%) (Auto) 1 % (0-3) Basophils (%) (Auto) 0 % (0-3) Neutrophils # (Auto) 5.5 x10^3uL (1.8-7.7) Lymphocytes # (Auto) 1.7 x10^3/uL (1.0-4.8) Monocytes # (Auto) 0.8 x10^3/uL (0.0-1.1) Eosinophils # (Auto) 0.1 x10^3/uL (0.0-0.7) Basophils # (Auto) 0.0 x10^3/uL (0.0-0.2) Prothrombin Time 38.0 SEC (11.7-14.0) Prothromb Time International Ratio 4.0 (0.8-1.1) Sodium Level 138 mmol/L (136-145) Potassium Level 3.7 mmol/L (3.5-5.1) Chloride Level 102 mmol/L (98-107) Carbon Dioxide Level 28 mmol/L (21-32) Anion Gap 8 (6-14) Blood Urea Nitrogen 11 mg/dL (8-26) Creatinine 1.0 mg/dL (0.7-1.3) Estimated GFR (Cockcroft-Gault) 77.6 BUN/Creatinine Ratio 11 (6-20) Glucose Level 164 mg/dL (70-99) Calcium Level 8.3 mg/dL (8.5-10.1) Total Bilirubin 1.6 mg/dL (0.2-1.0) Aspartate Amino Transf (AST/SGOT) 11 U/L (15-37) Alanine Aminotransferase (ALT/SGPT) 21 U/L (16-63) Alkaline Phosphatase 47 U/L (46-116) Total Protein 5.9 g/dL (6.4-8.2) Albumin 2.7 g/dL (3.4-5.0) Albumin/Globulin Ratio 0.8 (1.0-1.7) Allergies: Coded Allergies: hydrochlorothiazide (Verified Allergy, Intermediate, diarrhea, 02/19/15) Medications: Current Medications Medications (Trade) Dose Ordered Sig/Kailey Route PRN Reason Start Time Stop Time Status Last Admin Dose Admin Aspirin (Ngoc Aspirin) 325 mg 1X ONCE PO 09/03/18 09:15 09/03/18 09:16 DC 09/03/18 09:45 Nitroglycerin (Nitrostat) 0.4 mg PRN Q5MIN PRN SL CP RATING > 1/10 09/03/18 09:15 09/03/18 13:29 DC 09/03/18 09:59 Morphine Sulfate (Morphine Sulfate) 2 mg 1X ONCE IV 09/03/18 09:15 09/03/18 09:16 DC 09/03/18 10:04 Acetaminophen (Tylenol) 650 mg PRN Q4HRS PRN PO FEVER 09/03/18 11:15 09/04/18 11:14 09/03/18 22:47 Iohexol (Omnipaque 300 Mg/ml) 75 ml 1X ONCE IV 09/03/18 11:45 09/03/18 11:46 DC 09/03/18 11:55 Amiodarone HCl (Cordarone) 200 mg DAILY PO 09/04/18 09:00 09/04/18 09:01 Ranolazine (Ranexa) 500 mg BID PO 09/03/18 21:00 09/04/18 08:59 Isosorbide Mononitrate (Imdur) 60 mg DAILY PO 09/04/18 09:00 09/04/18 09:00 Atorvastatin Calcium (Lipitor) 10 mg QHS PO 09/03/18 21:00 09/03/18 21:08 Sotalol HCl (Betapace) 80 mg BID PO 09/03/18 21:00 09/04/18 09:00 Albuterol Sulfate (Ventolin Neb Soln) 2.5 mg PRN Q6HRS PRN NEB SHORTNESS OF BREATH 09/03/18 18:45 09/04/18 08:03 Benzonatate (Tessalon Perle) 200 mg PRN Q8HRS PRN PO COUGH 09/03/18 19:45 09/04/18 09:06 Losartan Potassium (Cozaar) 50 mg 1X ONCE PO 09/03/18 20:00 09/03/18 20:01 DC 09/03/18 19:50 Losartan Potassium (Cozaar) 50 mg DAILY PO 09/04/18 09:00 09/04/18 09:01 Imaging: Imaging: CXR IMPRESSION: 1. Mild cardiomegaly. 2. No acute abnormality is detected. CT A/P IMPRESSION: 1. Colonic diverticulosis with probable mild proximal sigmoid diverticulitis. 2. Small distal abdominal aortic aneurysm. 3. Mild basilar interstitial edema and small pleural effusions. PE: GEN: NAD, up to chair HEENT: Atraumatic, PERRL LUNGS: CTAB HEART: RRR ABD: NABS, round, a bit firm, non-tender EXTREMITY: No edema SKIN: No rashes, no jaundice NEURO/PSYCH: A & O 3 A/P: A/P: Chest pain, h/o significant CAD Coumadin coagulopathy, recent URI w/ doxycycline use Bloating Abnormal CT - probable mild proximal sigmoid diverticulitis H/o GERD CRC screen - UTD Elevated bilirubin -- Reviewed w/ Dr. Montano - Add PPI, consider EGD eventually. PO antibiotics re: CT findings. BLAINE MASTERS Sep 04, 2018 09:08
[2018-09-04] MEDS ORDERED: metroNIDAZOLE 500 MG TABLET PO SCH (10:30)
[2018-09-04] MEDS ORDERED: CIPROFLOXACIN HCL 250 MG TABLET. PO SCH (10:30)
[2018-09-04] MEDS: AMOXICILLIN/K CLAV 875/125MG TABLET. PO SCH ×2 (12:15→20:49)
[2018-09-04] MEDS: PANTOPRAZOLE 40 MG TABLET.DR. PO SCH (12:15)
--- NOTE | 2018-09-04 13:34 | PDOC ---
PROGRESS NOTES Subjective Subjective Mr. Munoz is doing well today. He says he is feeling much better, he does not have abdominal or chest pain today. He said the GI doc has come and seen him yesterday, and has given him some medication to help. Objective Objective Vital Signs Date Time Temp Pulse Resp B/P (MAP) Pulse Ox O2 Delivery O2 Flow Rate FiO2 09/04/18 09:01 67 130/77 09/04/18 08:07 96 Room Air 09/04/18 08:00 98.4 16 98.4 Intake and Output 09/04/18 07:00 Output Total 500 ml Balance -500 ml Output Urine Total 500 ml # Voids 4 Physical Exam Heart: Regular rate, Normal S1, Normal S2, No murmurs Assessment Assessment Chest Pain Abdominal Pain Diverticulitis GERD CAD Coagulopathy Plan Plan of Care Chest pain, resolved Abdominal pain, improved Coagulopathy: home when INR is under 3.0 Continue to monitor labs, GI consulted 09/03 for diverticulosis, and associated gas issues. Comment Review of Relevant I have reviewed the following items garett (where applicable) has been applied. Labs Laboratory Tests Test 09/03/18 09:20 09/03/18 13:02 09/03/18 15:15 09/03/18 21:15 White Blood Count 11.7 x10^3/uL (4.0-11.0) Red Blood Count 4.75 x10^6/uL (4.30-5.70) Hemoglobin 14.6 g/dL (13.0-17.5) Hematocrit 42.6 % (39.0-53.0) Mean Corpuscular Volume 90 fL (79-100) Mean Corpuscular Hemoglobin 31 pg (25-35) Mean Corpuscular Hemoglobin Concent 34 g/dL (31-37) Red Cell Distribution Width 14.9 % (11.5-14.5) Platelet Count 127 x10^3/uL (140-400) Neutrophils (%) (Auto) 78 % (31-73) Lymphocytes (%) (Auto) 13 % (24-48) Monocytes (%) (Auto) 8 % (0-9) Eosinophils (%) (Auto) 1 % (0-3) Basophils (%) (Auto) 0 % (0-3) Neutrophils # (Auto) 9.1 x10^3uL (1.8-7.7) Lymphocytes # (Auto) 1.5 x10^3/uL (1.0-4.8) Monocytes # (Auto) 0.9 x10^3/uL (0.0-1.1) Eosinophils # (Auto) 0.1 x10^3/uL (0.0-0.7) Basophils # (Auto) 0.0 x10^3/uL (0.0-0.2) Prothrombin Time 45.2 SEC (11.7-14.0) Prothromb Time International Ratio 5.0 (0.8-1.1) Activated Partial Thromboplast Time 74 SEC (24-38) Sodium Level 139 mmol/L (136-145) Potassium Level 4.0 mmol/L (3.5-5.1) Chloride Level 102 mmol/L (98-107) Carbon Dioxide Level 29 mmol/L (21-32) Anion Gap 8 (6-14) Blood Urea Nitrogen 14 mg/dL (8-26) Creatinine 1.1 mg/dL (0.7-1.3) Estimated GFR (Cockcroft-Gault) 69.5 BUN/Creatinine Ratio 13 (6-20) Glucose Level 188 mg/dL (70-99) Calcium Level 8.8 mg/dL (8.5-10.1) Magnesium Level 1.9 mg/dL (1.8-2.4) Total Bilirubin 1.5 mg/dL (0.2-1.0) Aspartate Amino Transf (AST/SGOT) 14 U/L (15-37) Alanine Aminotransferase (ALT/SGPT) 26 U/L (16-63) Alkaline Phosphatase 63 U/L (46-116) Troponin I Quantitative 0.027 ng/mL (0.000-0.055) 0.018 ng/mL (0.000-0.055) 0.026 ng/mL (0.000-0.055) YE-Eby-G-Type Natriuretic Peptide 2494 pg/mL (0-124) Total Protein 6.5 g/dL (6.4-8.2) Albumin 3.1 g/dL (3.4-5.0) Albumin/Globulin Ratio 0.9 (1.0-1.7) Thyroid Stimulating Hormone (TSH) 2.667 uIU/mL (0.358-3.74) Urine Collection Type Unknown Urine Color Yellow Urine Clarity Clear Urine pH 6.5 Urine Specific [place] >=1.030 Urine Protein Negative mg/dL (NEG-TRACE) Urine Glucose (UA) 250 mg/dL (NEG) Urine Ketones (Stick) Negative mg/dL (NEG) Urine Blood Trace (NEG) Urine Nitrite Negative (NEG) Urine Bilirubin Negative (NEG) Urine Urobilinogen Dipstick 1.0 mg/dL (0.2 mg/dL) Urine Leukocyte Esterase Negative (NEG) Urine RBC 3-5 /HPF (0-2) Urine WBC Rare /HPF (0-4) Urine Squamous Epithelial Cells None /LPF Urine Bacteria 0 /HPF (0-FEW) Urine Mucus Slight /LPF Urine Opiates Screen Pos (NEG) Urine Methadone Screen Neg (NEG) Urine Barbiturates Neg (NEG) Urine Phencyclidine Screen Neg (NEG) Urine Amphetamine/Methamphetamine Neg (NEG) Urine Benzodiazepines Screen Neg (NEG) Urine Cocaine Screen Neg (NEG) Urine Cannabinoids Screen Neg (NEG) Urine Ethyl Alcohol Neg (NEG) Test 09/04/18 03:20 White Blood Count 8.1 x10^3/uL (4.0-11.0) Red Blood Count 4.40 x10^6/uL (4.30-5.70) Hemoglobin 13.4 g/dL (13.0-17.5) Hematocrit 39.5 % (39.0-53.0) Mean Corpuscular Volume 90 fL (79-100) Mean Corpuscular Hemoglobin 31 pg (25-35) Mean Corpuscular Hemoglobin Concent 34 g/dL (31-37) Red Cell Distribution Width 14.7 % (11.5-14.5) Platelet Count 106 x10^3/uL (140-400) Neutrophils (%) (Auto) 67 % (31-73) Lymphocytes (%) (Auto) 21 % (24-48) Monocytes (%) (Auto) 10 % (0-9) Eosinophils (%) (Auto) 1 % (0-3) Basophils (%) (Auto) 0 % (0-3) Neutrophils # (Auto) 5.5 x10^3uL (1.8-7.7) Lymphocytes # (Auto) 1.7 x10^3/uL (1.0-4.8) Monocytes # (Auto) 0.8 x10^3/uL (0.0-1.1) Eosinophils # (Auto) 0.1 x10^3/uL (0.0-0.7) Basophils # (Auto) 0.0 x10^3/uL (0.0-0.2) Prothrombin Time 38.0 SEC (11.7-14.0) Prothromb Time International Ratio 4.0 (0.8-1.1) Sodium Level 138 mmol/L (136-145) Potassium Level 3.7 mmol/L (3.5-5.1) Chloride Level 102 mmol/L (98-107) Carbon Dioxide Level 28 mmol/L (21-32) Anion Gap 8 (6-14) Blood Urea Nitrogen 11 mg/dL (8-26) Creatinine 1.0 mg/dL (0.7-1.3) Estimated GFR (Cockcroft-Gault) 77.6 BUN/Creatinine Ratio 11 (6-20) Glucose Level 164 mg/dL (70-99) Calcium Level 8.3 mg/dL (8.5-10.1) Total Bilirubin 1.6 mg/dL (0.2-1.0) Aspartate Amino Transf (AST/SGOT) 11 U/L (15-37) Alanine Aminotransferase (ALT/SGPT) 21 U/L (16-63) Alkaline Phosphatase 47 U/L (46-116) Total Protein 5.9 g/dL (6.4-8.2) Albumin 2.7 g/dL (3.4-5.0) Albumin/Globulin Ratio 0.8 (1.0-1.7) Laboratory Tests Test 09/03/18 15:15 09/03/18 21:15 09/04/18 03:20 Troponin I Quantitative 0.026 ng/mL (0.000-0.055) Urine Collection Type Unknown Urine Color Yellow Urine Clarity Clear Urine pH 6.5 Urine Specific [place] >=1.030 Urine Protein Negative mg/dL (NEG-TRACE) Urine Glucose (UA) 250 mg/dL (NEG) Urine Ketones (Stick) Negative mg/dL (NEG) Urine Blood Trace (NEG) Urine Nitrite Negative (NEG) Urine Bilirubin Negative (NEG) Urine Urobilinogen Dipstick 1.0 mg/dL (0.2 mg/dL) Urine Leukocyte Esterase Negative (NEG) Urine RBC 3-5 /HPF (0-2) Urine WBC Rare /HPF (0-4) Urine Squamous Epithelial Cells None /LPF Urine Bacteria 0 /HPF (0-FEW) Urine Mucus Slight /LPF Urine Opiates Screen Pos (NEG) Urine Methadone Screen Neg (NEG) Urine Barbiturates Neg (NEG) Urine Phencyclidine Screen Neg (NEG) Urine Amphetamine/Methamphetamine Neg (NEG) Urine Benzodiazepines Screen Neg (NEG) Urine Cocaine Screen Neg (NEG) Urine Cannabinoids Screen Neg (NEG) Urine Ethyl Alcohol Neg (NEG) White Blood Count 8.1 x10^3/uL (4.0-11.0) Red Blood Count 4.40 x10^6/uL (4.30-5.70) Hemoglobin 13.4 g/dL (13.0-17.5) Hematocrit 39.5 % (39.0-53.0) Mean Corpuscular Volume 90 fL (79-100) Mean Corpuscular Hemoglobin 31 pg (25-35) Mean Corpuscular Hemoglobin Concent 34 g/dL (31-37) Red Cell Distribution Width 14.7 % (11.5-14.5) Platelet Count 106 x10^3/uL (140-400) Neutrophils (%) (Auto) 67 % (31-73) Lymphocytes (%) (Auto) 21 % (24-48) Monocytes (%) (Auto) 10 % (0-9) Eosinophils (%) (Auto) 1 % (0-3) Basophils (%) (Auto) 0 % (0-3) Neutrophils # (Auto) 5.5 x10^3uL (1.8-7.7) Lymphocytes # (Auto) 1.7 x10^3/uL (1.0-4.8) Monocytes # (Auto) 0.8 x10^3/uL (0.0-1.1) Eosinophils # (Auto) 0.1 x10^3/uL (0.0-0.7) Basophils # (Auto) 0.0 x10^3/uL (0.0-0.2) Prothrombin Time 38.0 SEC (11.7-14.0) Prothromb Time International Ratio 4.0 (0.8-1.1) Sodium Level 138 mmol/L (136-145) Potassium Level 3.7 mmol/L (3.5-5.1) Chloride Level 102 mmol/L (98-107) Carbon Dioxide Level 28 mmol/L (21-32) Anion Gap 8 (6-14) Blood Urea Nitrogen 11 mg/dL (8-26) Creatinine 1.0 mg/dL (0.7-1.3) Estimated GFR (Cockcroft-Gault) 77.6 BUN/Creatinine Ratio 11 (6-20) Glucose Level 164 mg/dL (70-99) Calcium Level 8.3 mg/dL (8.5-10.1) Total Bilirubin 1.6 mg/dL (0.2-1.0) Aspartate Amino Transf (AST/SGOT) 11 U/L (15-37) Alanine Aminotransferase (ALT/SGPT) 21 U/L (16-63) Alkaline Phosphatase 47 U/L (46-116) Total Protein 5.9 g/dL (6.4-8.2) Albumin 2.7 g/dL (3.4-5.0) Albumin/Globulin Ratio 0.8 (1.0-1.7) Medications Current Medications Aspirin ([employer] Aspirin) 325 mg 1X ONCE PO Last administered on 09/03/18at 09:45 ; Start 09/03/18 at 09:15; Stop 09/03/18 at 09:16; Status DC Nitroglycerin (Nitrostat) 0.4 mg PRN Q5MIN PRN SL CP RATING > 1/10 Last administered on 09/03/18at 09:59; Start 09/03/18 at 09:15; Stop 09/03/18 at 13:29 ; Status DC Morphine Sulfate (Morphine Sulfate) 2 mg 1X ONCE IV Last administered on at 10:04; Start 09/03/18 at 09:15; Stop 09/03/18 at 09:16; Status DC Ondansetron HCl (Zofran) 4 mg PRN Q8HRS PRN IV NAUSEA/VOMITING; Start 09/03/18 at 11:15; Stop 09/04/18 at 11:14; Status DC Morphine Sulfate (Morphine Sulfate) 4 mg PRN Q2HR PRN IV PAIN; Start 09/03/18 at 11:15; Stop 09/04/18 at 11:14; Status DC Acetaminophen (Tylenol) 650 mg PRN Q4HRS PRN PO FEVER Last administered on 09/03at 22:47; Start 09/03/18 at 11:15; Stop 09/04/18 at 11:14; Status DC Nitroglycerin (Nitrostat) 0.4 mg PRN Q5MIN PRN SL CHEST PAIN; Start 09/03/18 at 11:15; Stop 09/04/18 at 11:14; Status DC Iohexol (Omnipaque 300 Mg/ml) 75 ml 1X ONCE IV Last administered on 09/03/18at 11:55; Start 09/03/18 at 11:45; Stop 09/03/18 at 11:46; Status DC Info (CONTRAST GIVEN -- Rx MONITORING) 1 each PRN DAILY PRN MC SEE COMMENTS; Start 09/03/18 at 11:45; Stop 09/05/18 at 11:44 Amiodarone HCl (Cordarone) 200 mg DAILY PO Last administered on 09/04/18at 09:01 ; Start 09/04/18 at 09:00 Aspirin (Children'S Aspirin) 81 mg DAILY PO ; Start 09/04/18 at 09:00 Ranolazine (Ranexa) 500 mg BID PO Last administered on 09/04/18at 08:59; Start 09/03/18 at 21:00 Non-Formulary Medication (Albuterol Sulfate (Proair Respiclick)) 1 puff PRN Q6HRS PRN IH SHORTNESS OF BREATH; Start 09/03/18 at 18:45; Status UNV Isosorbide Mononitrate (Imdur) 60 mg DAILY PO Last administered on 09/04/18at 09 :00; Start 09/04/18 at 09:00 Atorvastatin Calcium (Lipitor) 10 mg QHS PO Last administered on 09/03/18at 21: 08; Start 09/03/18 at 21:00 Metformin HCl (Glucophage) 500 mg BIDWMEALS PO ; Start 09/05/18 at 17:00 Losartan Potassium (Cozaar) 100 mg DAILY PO ; Start 09/04/18 at 09:00; Stop 09/04/18 at 09:00; Status DC Sotalol HCl (Betapace) 80 mg BID PO Last administered on 09/04/18at 09:00; Start 09/03/18 at 21:00 Albuterol Sulfate (Ventolin Neb Soln) 2.5 mg PRN Q6HRS PRN NEB SHORTNESS OF BREATH Last administered on 09/04/18at 08:03; Start 09/03/18 at 18:45 Benzonatate (Tessalon Perle) 200 mg PRN Q8HRS PRN PO COUGH Last administered on 09/04/18at 09:06; Start 09/03/18 at 19:45 Losartan Potassium (Cozaar) 50 mg 1X ONCE PO Last administered on 09/03/18at 19 :50; Start 09/03/18 at 20:00; Stop 09/03/18 at 20:01; Status DC Losartan Potassium (Cozaar) 50 mg DAILY PO Last administered on 09/04/18at 09:01 ; Start 09/04/18 at 09:00 Pantoprazole Sodium (Protonix) 40 mg DAILYAC PO Last administered on 09/04/18at 12:15; Start 09/04/18 at 11:00 Ciprofloxacin (Cipro) 500 mg BID PO ; Start 09/04/18 at 10:30; Stop 09/04/18 at 10:48; Status DC Metronidazole (Flagyl) 500 mg Q12HR PO ; Start 09/04/18 at 10:30; Stop 09/04/18 at 10:48; Status DC Amoxicillin/ Clavulanate Potassium (Augmentin 875/ 125mg) 1 tab BID PO Last administered on 09/04/18at 12:15; Start 09/04/18 at 11:00 Active Scripts Active Reported Benicar (Olmesartan Medoxomil) 40 Mg Tablet 40 Mg PO DAILY Sotalol (Sotalol Hcl) 80 Mg Tablet 1 Tab PO BID Metformin Hcl 500 Mg Tablet 500 Mg PO BIDWMEALS Aspirin 81 Mg Tab.chew 1 Tab PO DAILY Amiodarone Hcl 200 Mg Tablet 1 Tab PO DAILY Warfarin Sodium 5 Mg Tablet 2.5 Mg PO QODAY Warfarin Sodium 5 Mg Tablet 5 Mg PO QODAY Proair Respiclick (Albuterol Sulfate) 90 Mcg Aer.pow.ba 1 Puff IH PRN Q6HRS PRN Ranexa (Ranolazine) 500 Mg Tab.er.12h 1 Tab PO BID Isosorbide Mononitrate Er (Isosorbide Mononitrate) 60 Mg Tab.er.24h 60 Mg PO DAILY Lovastatin 40 Mg Tablet 40 Mg PO HS Vitals/I & O Vital Sign - Last 24 Hours 09/03/18 09/03/18 09/03/18 09/03/18 16:00 19:50 20:00 20:00 Temp 98.5 98.2 98.5 98.2 Pulse 70 72 82 Resp 18 16 B/P (MAP) 139/94 (109) 138/93 138/93 (108) Pulse Ox 97 98 O2 Delivery Room Air Room Air Room Air 09/03/18 09/03/18 09/04/18 09/04/18 21:07 21:08 00:00 04:00 Temp 98.5 98.1 98.5 98.1 Pulse 78 78 69 75 Resp 15 18 B/P (MAP) 155/98 155/98 132/77 (95) 128/70 (89) Pulse Ox 98 98 O2 Delivery Room Air Room Air 09/04/18 09/04/18 09/04/18 09/04/18 08:00 08:00 08:07 08:59 Temp 98.4 98.4 Pulse 67 67 Resp 16 B/P (MAP) 130/77 (94) 130/77 Pulse Ox 95 96 O2 Delivery Room Air Room Air Room Air 09/04/18 09/04/18 09/04/18 09/04/18 09:00 09:00 09:01 09:01 Pulse 67 67 67 67 B/P (MAP) 130/77 130/77 130/77 130/77 Intake and Output 09/03/18 09/03/18 09/04/18 15:00 23:00 07:00 Output Total 500 ml Balance -500 ml BASIM SANTO MD Sep 04, 2018 13:34
[2018-09-04] MEDS: ATORVASTATIN CALCIUM 10 MG TABLET. PO SCH (20:49)
[2018-09-05 04:00] VITALS: BP 108/71
[2018-09-05 04:45] LABS: PROTHROMBIN TIME PATIENT 24.7 SEC (11.7-14.0)
[2018-09-05] MEDS: PANTOPRAZOLE 40 MG TABLET.DR. PO SCH (07:27)
[2018-09-05 08:00] VITALS: BP 119/75
[2018-09-05] MEDS: ASPIRIN CHEWABLE 81 MG TABLET. PO SCH (09:43)
[2018-09-05] MEDS: RANOLAZINE 500 MG TAB.ER.12H PO SCH (09:43)
[2018-09-05] MEDS: ISOSORBIDE MONONITRATE ER 30 MG TAB.ER.24H PO SCH (09:44)
[2018-09-05] MEDS: AMIODARONE HCL 200 MG TABLET. PO SCH (09:45)
[2018-09-05] MEDS: LOSARTAN POTASSIUM 50 MG TABLET. PO SCH (09:45)
[2018-09-05] MEDS: SOTALOL 80 MG TABLET. PO SCH (09:45)
[2018-09-05] MEDS: AMOXICILLIN/K CLAV 875/125MG TABLET. PO SCH (09:47)
[2018-09-05 12:00] VITALS: BP 121/77
--- NOTE | 2018-09-05 12:42 | PDOC ---
Subjective: Subjective: No chest pain, bloating is better, eating well. Objective: Objective: Reviewed w/ RN - plans for DC today. Vital Signs: Vital Signs Date Time Temp Pulse Resp B/P (MAP) Pulse Ox O2 Delivery O2 Flow Rate FiO2 09/05/18 12:00 97.7 73 16 121/77 (92) 97 Room Air 97.7 Labs: Laboratory Tests Test 09/05/18 04:15 Prothrombin Time 24.7 SEC Prothromb Time International Ratio 2.3 PE: GEN: NAD, up to chair LUNGS: CTAB HEART: RRR ABD: round/stable, non-tender NEURO/PSYCH: A & O 3 A/P: Chest pain, Coumadin coagulopathy, bloating - resolved/better Abnormal CT - probable mild proximal sigmoid diverticulitis -- DC per primary. Follow-up for outpt EGD - our office will arrange. Left scripts for pantoprazole and Augmentin (to total 7 days) w/ RN. Says he checks his INR w/ PCP monthly - next scheduled around 09/12. BLAINE MASTERS Sep 05, 2018 12:42
[2018-09-05] MEDS ORDERED: GABA600T2 PO (15:20)
[2018-09-05] MEDS ORDERED: GABA300C18 PO (15:20)
[2018-09-05] MEDS ORDERED: PANT20TA2 PO (15:21)
[2018-09-05] MEDS ORDERED: AMOX1TAB61 PO (15:23)
[2018-09-05 15:39] VITALS: BP 116/78
--- NOTE | 2018-09-05 16:26 | PDOC3 ---
*Discharge Summary* Date of Admission: Sep 03, 2018 Date of Discharge: Sep 05, 2018 Admitting Diagnosis Problems Medical Problems: (1) Chest pain Status: Acute (2) Upper respiratory infection Status: Acute Final Diagnosis Problems Medical Problems: (1) Chest pain Status: Resolved (2) Upper respiratory infection Status: Acute 3) Diverticulosis CONSULTS GI Brief Hospital Course Mr. Munoz is a 57 old male who presented with acute chest pain. Cardiac workup was negative, and GI was consulted due to the clinical symptoms of flatulence, distention. Patient then had an abdomen/pelvis CT done, showing diverticulosis of parts of the lower GI tract. He was given some medication to improve his discomfort, and discharged on Pantoprazole for reflux, and Augmentin for his diverticulosis, as well as receiving a refill of Gabapentin for his nerve pain. He is also receiving 2.5 mg po once daily of warfarin, and we are attempting to get it into therapeutic range INR between 2-3. Disposition/Orders: D/C to Home CONDITION AT DISCHARGE: Improved Diet: Cardiac Home Meds Reported Medications Amoxicillin/Potassium Clav (AUGMENTIN 875-125 TABLET) 1 Each Tablet, 1 TAB PO BID for colitis for 6 Days, #13 TAB 09/05/18 Pantoprazole Sodium (PROTONIX) 20 Mg Tablet.dr, 40 MG PO DAILY for GERD, TAB 09/05/18 Gabapentin (GABAPENTIN ) 300 Mg Capsule, 300 MG PO BID for NEUROGENIC PAIN, CAP 09/05/18 Gabapentin (GABAPENTIN) 600 Mg Tablet, 600 MG PO TID for NEUROGENIC PAIN, TAB 09/05/18 Olmesartan Medoxomil (BENICAR) 40 Mg Tablet, 40 MG PO DAILY for HYPERTENSION, TAB 09/03/18 Sotalol Hcl (SOTALOL) 80 Mg Tablet, 1 TAB PO BID, #60 TAB 5 Refills 09/03/18 Metformin Hcl (METFORMIN HCL) 500 Mg Tablet, 500 MG PO BIDWMEALS for ANTI- DIABETIC, TAB 0 Refills 09/03/18 Aspirin (ASPIRIN) 81 Mg Tab.chew, 1 TAB PO DAILY, #30 TAB 3 Refills 09/03/18 Amiodarone Hcl (AMIODARONE HCL) 200 Mg Tablet, 1 TAB PO DAILY, #90 TAB 1 Refill 09/03/18 Warfarin Sodium (WARFARIN SODIUM) 5 Mg Tablet, 2.5 MG PO QODAY, #30 TAB 09/03/18 Warfarin Sodium (WARFARIN SODIUM) 5 Mg Tablet, 5 MG PO QODAY, #30 TAB 09/03/18 Albuterol Sulfate (Proair Respiclick) 90 Mcg Aer.pow.ba, 1 PUFF IH PRN Q6HRS PRN for SHORTNESS OF BREATH, INHALER 07/06/18 Ranolazine (RANEXA) 500 Mg Tab.er.12h, 1 TAB PO BID, #60 TAB 3 Refills 09/12/16 Isosorbide Mononitrate (ISOSORBIDE MONONITRATE ER) 60 Mg Tab.er.24h, 60 MG PO DAILY, TAB.SR 02/19/15 Lovastatin (LOVASTATIN) 40 Mg Tablet, 40 MG PO HS, TAB 02/19/15 Discontinued Reported Medications Fluticasone/Salmeterol (ADVAIR 100-50 DISKUS) 1 Each Disk.w.dev, 1 INH IH BID, INHALER 07/06/18 Gabapentin (GABAPENTIN ) 100 Mg Capsule, 100 MG PO BID, CAP 07/06/18 Scheduled Amiodarone Hcl (Amiodarone Hcl), 1 TAB PO DAILY, (Reported) Amoxicillin/Potassium Clav (Augmentin 875-125 Tablet), 1 TAB PO BID, (Reported) Aspirin (Aspirin), 1 TAB PO DAILY, (Reported) Gabapentin (Gabapentin), 600 MG PO TID, (Reported) Gabapentin (Gabapentin ), 300 MG PO BID, (Reported) Isosorbide Mononitrate (Isosorbide Mononitrate Er), 60 MG PO DAILY, (Reported) Lovastatin (Lovastatin), 40 MG PO HS, (Reported) Metformin Hcl (Metformin Hcl), 500 MG PO BIDWMEALS, (Reported) Olmesartan Medoxomil (Benicar), 40 MG PO DAILY, (Reported) Pantoprazole Sodium (Protonix), 40 MG PO DAILY, (Reported) Ranolazine (Ranexa), 1 TAB PO BID, (Reported) Sotalol Hcl (Sotalol), 1 TAB PO BID, (Reported) Warfarin Sodium (Warfarin Sodium), 5 MG PO QODAY, (Reported) Warfarin Sodium (Warfarin Sodium), 2.5 MG PO QODAY, (Reported) Scheduled PRN Albuterol Sulfate (Proair Respiclick), 1 PUFF IH PRN Q6HRS PRN for SHORTNESS OF BREATH, (Reported) Discontinued Medications Fluticasone/Salmeterol (Advair 100-50 Diskus), 1 INH IH BID, (Reported) Gabapentin (Gabapentin ), 100 MG PO BID, (Reported) FOLLOW UP APPOINTMENT: Scheduled for a follow-up call with my nursing staff on . He is also due for followup with the GI doctors on an outpatient basis to receive and endoscopy. Time Spent Total time spent with patient [] minutes for coordination of care, counseling, and education. BASIM SANTO MD Sep 05, 2018 16:26
[2018-09-05] MEDS ORDERED: metFORMIN 500 MG TABLET PO SCH (17:00)
== END 2018-09-05 15:46 | disposition home or self-care (01) | DRG 392 ==
LOC: ER 09:03 → 1 WEST ICU 10:47
PROVIDERS: ADMIT Internal Medicine Cardiovascular Disease; ATTEND Internal Medicine Cardiovascular Disease
DX: K57.30 Diverticulosis of large intestine without perforation or abscess without bleeding (principal); D68.9 Coagulation defect, unspecified; I42.9 Cardiomyopathy, unspecified; K21.9 Gastro-esophageal reflux disease without esophagitis; J06.9 Acute upper respiratory infection, unspecified; E78.00 Pure hypercholesterolemia, unspecified; E78.5 Hyperlipidemia, unspecified; G47.33 Obstructive sleep apnea (adult) (pediatric); I10 Essential (primary) hypertension; I25.10 Atherosclerotic heart disease of native coronary artery without angina pectoris; I25.2 Old myocardial infarction; G62.9 Polyneuropathy, unspecified; I71.4 Abdominal aortic aneurysm, without rupture; J44.9 Chronic obstructive pulmonary disease, unspecified; R13.10 Dysphagia, unspecified; T45.515A Adverse effect of anticoagulants, initial encounter; Z79.01 Long term (current) use of anticoagulants; Z82.49 Family history of ischemic heart disease and other diseases of the circulatory system; Z95.5 Presence of coronary angioplasty implant and graft; Z95.1 Presence of aortocoronary bypass graft; Z88.8 Allergy status to other drugs, medicaments and biological substances
CPT/HCPCS: 36415; 71045; 74177; 80053; 80307; 81001; 83735; 83880; 84443; 84484; 85025; 85610; 85730; 87641; 93005; 94640; 94760; 96374; J2270; J7613; Q9967; 99285-25

== ENCOUNTER → 2018-09-16 | Day surgery (SDC) | payer OTHER ==
[~2018-09-16] MED LIST changes: +AMIO200T4 PO; +AMOX1TAB61 PO; +ASPI-630 PO; +GABA300C18 PO; +GABA600T2 PO; +HYDROmorphone 2 MG/ML VIAL IV PRN; +IV RINGERS,LACTATED 1000ML 1,000 ML IV SCH; +LIDOCAINE 1% PF 2 ML VIAL. ID PRN; +METF500T16 PO; +MORPHINE SULFATE 2 MG/ML VIAL. IV PRN; +OLME40TA12 PO; +ONDANSETRON PF 4 MG/2 ML VIAL. IV PRN; +PANT20TA2 PO; +PROCHLORPERAZINE 10 MG/2 ML VIAL. IV PRN; +PROPOFOL 20 ML IV ONE; +SOTA80TA48 PO; +WARF-31 PO; +fentaNYL PF VIAL 100 MCG/2 ML VIAL IV PRN
--- NOTE | 2018-09-16 12:09 | PDOC1 ---
History and Physical Date of Admission Date of Admission DATE: 09/16/18 TIME: 12:05 Source Source: Chart review, Patient History of Present Illness History of Present Illness Chronic dyspepsia/NCCP. On PPI since 09/04; still issues. No prior EGD. Here for same. Past Medical History Cardiovascular: CAD, HTN, [place], Hyperlipidemia Pulmonary: COPD CENTRAL NERVOUS SYSTEM: Periperal neuropathy Musculoskeletal: low back pain Past Surgical History Past Surgical History: CABG, Hernia Repair Family History Family History: Coronary Artery Disease Family History: Grandparents Social History Smoke: No ALCOHOL: occassional Drugs: None Current Medications Current Medications Current Medications Prochlorperazine Edisylate (Compazine) 5 mg PACU PRN PRN IV NAUSEA, MRX1; Start 09/16/18 at 07:00; Stop 09/17/18 at 06:59 Hydromorphone HCl (Dilaudid) 0.5 mg PRN Q10MIN PRN IV SEV PAIN, Second choice; Start 09/16/18 at 07:00; Stop 09/17/18 at 06:59 Lidocaine HCl (Xylocaine-Mpf 1% 2ml Vial) 2 ml PRN 1X PRN ID IV START; Start 09/16/18 at 07:00; Stop 09/17/18 at 06:59 Ringer's Solution 1,000 ml @ 30 mls/hr Q24H IV ; Start 09/16/18 at 07:00; Stop 09/16/18 at 18:59 Morphine Sulfate (Morphine Sulfate) 1 mg PRN Q10MIN PRN IV SEVERE PAIN; Start 09/16/18 at 07:00; Stop 09/17/18 at 06:59 Fentanyl Citrate (Fentanyl 2ml Vial) 50 mcg PRN Q5MIN PRN IV MODERATE TO SEVERE PAIN; Start 09/16/18 at 07:00; Stop 09/17/18 at 06:59 Fentanyl Citrate (Fentanyl 2ml Vial) 25 mcg PRN Q5MIN PRN IV MILD PAIN; Start 09/16/18 at 07:00; Stop 09/17/18 at 06:59 Ondansetron HCl (Zofran) 4 mg PRN Q6HRS PRN IV NAUSEA/VOMITING; Start at 07:00; Stop 09/17/18 at 06:59 Active Scripts Active Reported Protonix (Pantoprazole Sodium) 20 Mg Tablet.dr 40 Mg PO DAILY Gabapentin (Gabapentin) 300 Mg Capsule 300 Mg PO BID Benicar (Olmesartan Medoxomil) 40 Mg Tablet 40 Mg PO DAILY Sotalol (Sotalol Hcl) 80 Mg Tablet 1 Tab PO BID Metformin Hcl 500 Mg Tablet 500 Mg PO BIDWMEALS Aspirin 81 Mg Tab.chew 1 Tab PO DAILY Amiodarone Hcl 200 Mg Tablet 1 Tab PO DAILY Warfarin Sodium 5 Mg Tablet 2.5 Mg PO QODAY Warfarin Sodium 5 Mg Tablet 5 Mg PO QODAY Proair Respiclick (Albuterol Sulfate) 90 Mcg Aer.pow.ba 1 Puff IH PRN Q6HRS PRN Ranexa (Ranolazine) 500 Mg Tab.er.12h 1 Tab PO BID Isosorbide Mononitrate Er (Isosorbide Mononitrate) 60 Mg Tab.er.24h 60 Mg PO DAILY Lovastatin 40 Mg Tablet 40 Mg PO HS Allergies Allergies: Coded Allergies: hydrochlorothiazide (Verified Allergy, Intermediate, diarrhea, 02/19/15) ROS Review of System Otherwise non-contributory. Physical Exam General: Alert, Oriented X3, Cooperative, No acute distress Lungs: Clear to auscultation Heart: S1S2, RRR, no gallops, no murmurs Abdomen: Normal bowel sounds, Soft, No tenderness, No hepatosplenomegaly, No masses Rectal Exam: not examined Extremities: No cyanosis, No edema Skin: No significant lesion Neuro: Normal speech, Strength at 5/5 X4 ext, Normal tone, Sensation intact, Cranial nerves 3-12 NL, Reflexes 2+ Psych/Mental Status: Mental status NL, Mood NL Vitals Vitals Vital Signs Date Time Temp Pulse Resp B/P (MAP) Pulse Ox O2 Delivery O2 Flow Rate FiO2 09/16/18 11:22 97.7 70 20 96 97.7 VTE Prophylaxis Ordered VTE Prophylaxis Devices: No VTE Pharmacological Prophylaxi: No Assessment/Plan Assessment/Plan IMP: Chronic dyspepsia/NCCP PLAN: EGD. KENJI CASAS MD Sep 16, 2018 12:09
--- NOTE | 2018-09-16 12:28 | PDOC4 ---
PROCEDURE Procedure EGD/biopsy Indication: Chronic dyspepsia/NCCP Meds; per anesthesia Findings: E--healing Grade A-B esophagitis at 45cm. G--Striped erythema/scattered erosions in antrum. Biopsy from angulus. D--Patch erythema, bulb. Rest normal to second portion. Pedro Pablo. well. IMP: GERD, low-grade. Gastric/duodenal erythema, erosions. REC: Await biopsy Continue current meds, diet. F/u in 2 weeks. KENJI CASAS MD Sep 16, 2018 12:28
[2018-09-16 12:55] VITALS: BP 114/82
--- NOTE | 2018-09-17 15:09 | PATHOLOGY ---
[facility] Accession Number: [id number] . 01 Material submitted: . ANTRUM BIOPSY . 01 Clinical history: . GERD . 02 Diagnosis: Gastric biopsy, antrum: - Congestion and slight chronic inflammation. (JPM:demetrius; 09/17/2018) QMS/09/17/2018 . 02 Comment: Sections of the gastric antral biopsy show congestion and slight chronic inflammation. A properly controlled immunoperoxidase stain for Helicobacter is negative for Helicobacter organisms. There is no evidence of malignancy. (JPM:demetrius; 09/17/2018) . . Special stain performed: Immunoperoxidase stain for Helicobacter . 02 Electronically signed: . Arnoldo Rendon MD, Pathologist NPI- [id number] . 01 Gross description: . Received in formalin labeled "Tammy, Joe, antrum BX," is a single segment of fine soft tissue measuring 0.6 cm in maximum dimension. The specimen is entirely submitted in cassette A1. (TSD; 09/16/2018) TOB/TOB . 02 Pathologist provided ICD-10: K29.50 . 02 CPT . 208779, Y11587 Specimen Comment: A courtesy copy of this report has been sent to Specimen Comment: [phone], . Specimen Comment: Report sent to / DR GOODMAN Specimen Comment: A duplicate report has been generated due to demographic updates. Performed at: 01 [facility] [address], [place] [id number] MD Ebenezer Hall MD Phone: [phone] Performed at: 02 [facility] [address] [place], [place] [id number] MD Arnoldo Rendon MD Phone: [phone]
== END | disposition home or self-care (01) ==
LOC: ENDOS 10:56
PROVIDERS: ATTEND Internal Medicine Gastroenterology
DX: K21.0 Gastro-esophageal reflux disease with esophagitis (principal); K29.50 Unspecified chronic gastritis without bleeding; K25.9 Gastric ulcer, unspecified as acute or chronic, without hemorrhage or perforation; K31.89 Other diseases of stomach and duodenum; I25.10 Atherosclerotic heart disease of native coronary artery without angina pectoris; I10 Essential (primary) hypertension; I25.2 Old myocardial infarction; E78.5 Hyperlipidemia, unspecified; J44.9 Chronic obstructive pulmonary disease, unspecified; G62.9 Polyneuropathy, unspecified; Z98.890 Other specified postprocedural states; Z82.49 Family history of ischemic heart disease and other diseases of the circulatory system; Z72.89 Other problems related to lifestyle; Z79.899 Other long term (current) drug therapy; Z79.82 Long term (current) use of aspirin; Z79.84 Long term (current) use of oral hypoglycemic drugs; Z88.8 Allergy status to other drugs, medicaments and biological substances
CPT/HCPCS: 43239; 88305; 88342; J2704

== ENCOUNTER → 2018-10-27 | Outpatient (CLI) | payer OTHER ==
[2018-09-16 12:55] VITALS: BP 114/82
[~2018-10-27] MED LIST changes: -HYDROmorphone 2 MG/ML VIAL IV PRN; -IV RINGERS,LACTATED 1000ML 1,000 ML IV SCH; -LIDOCAINE 1% PF 2 ML VIAL. ID PRN; -MORPHINE SULFATE 2 MG/ML VIAL. IV PRN; -ONDANSETRON PF 4 MG/2 ML VIAL. IV PRN; -PROCHLORPERAZINE 10 MG/2 ML VIAL. IV PRN; -PROPOFOL 20 ML IV ONE; -fentaNYL PF VIAL 100 MCG/2 ML VIAL IV PRN
--- NOTE | 2018-10-27 13:05 | KCIC ---
RIGHT LOWER EXTREMITY ULTRASOUND WITH DOPPLER 10/27/2018 12:30 PM Clinical Information: Right leg swelling. Comparison: None. Technique: Multiple grayscale, color Doppler, and spectral Doppler sonographic images of the lower extremity venous structures were obtained. Findings: The right common femoral, femoral, and popliteal veins exhibit normal compression, respiratory phasicity, and augmentation. No intraluminal thrombi are identified. Color Doppler flow is demonstrated in the right posterior tibial and peroneal veins. Greater saphenous vein is patent. Impression: 1. No evidence of deep venous thrombosis. Electronically signed by: Trang Balbuena MD (10/27/2018 1:01 PM) [facility]-KCIC1
== END | disposition home or self-care (01) ==
LOC: KCIC US 12:28
PROVIDERS: ATTEND Family Medicine
DX: M79.89 Other specified soft tissue disorders (principal)
CPT/HCPCS: 93971

== ENCOUNTER → 2018-11-03 | Day surgery (SDC) | payer OTHER ==
[~2018-11-03] MED LIST changes: +ETOMIDATE 20 MG/10 ML VIAL. IV ONE; +HYDROmorphone 2 MG/ML VIAL IV PRN; +IV RINGERS,LACTATED 1000ML 1,000 ML IV SCH; +LIDOCAINE 1% PF 2 ML VIAL. ID PRN; +LIDOCAINE 2% 100 MG/5 ML SYRINGE. ONE; +MORPHINE SULFATE 4 MG/ML VIAL. IV PRN; +PROCHLORPERAZINE 10 MG/2 ML VIAL. IV PRN; +PROPOFOL 20 ML IV ONE; +fentaNYL PF VIAL 100 MCG/2 ML VIAL IV PRN
--- NOTE | 2018-11-03 13:37 | PDOC1 ---
History and Physical Date of Admission Date of Admission DATE: 11/03/18 TIME: 13:31 Source Source: Chart review, Patient History of Present Illness History of Present Illness 58 y/o male for CRC screening; last colonoscopy 2008. Recently change in bowel habits and occasional blood in stool. Past Medical History Cardiovascular: CAD, HTN, [place], Hyperlipidemia Pulmonary: COPD CENTRAL NERVOUS SYSTEM: Periperal neuropathy GI: Diverticulosis, GERD Musculoskeletal: low back pain Past Surgical History Past Surgical History: CABG, Hernia Repair Family History Family History: Coronary Artery Disease Family History: Grandparents Social History Smoke: No ALCOHOL: occassional Drugs: None Current Medications Current Medications Current Medications Fentanyl Citrate (Fentanyl 2ml Vial) 25 mcg PRN Q5MIN PRN IV MILD PAIN; Start 11/03/18 at 07:00; Stop 11/04/18 at 06:59 Fentanyl Citrate (Fentanyl 2ml Vial) 50 mcg PRN Q5MIN PRN IV MODERATE TO SEVERE PAIN; Start 11/03/18 at 07:00; Stop 11/04/18 at 06:59 Morphine Sulfate (Morphine Sulfate) 1 mg PRN Q10MIN PRN IV SEVERE PAIN; Start 11/03/18 at 07:00; Stop 11/04/18 at 06:59 Ringer's Solution 1,000 ml @ 30 mls/hr Q24H IV Last administered on 11/03/18at 07:00; Start 11/03/18 at 07:00; Stop 11/03/18 at 18:59 Lidocaine HCl (Xylocaine-Mpf 1% 2ml Vial) 2 ml PRN 1X PRN ID PRIOR TO IV START ; Start 11/03/18 at 07:00; Stop 11/04/18 at 06:59 Hydromorphone HCl (Dilaudid) 0.5 mg PRN Q10MIN PRN IV SEV PAIN, Second choice; Start 11/03/18 at 07:00; Stop 11/04/18 at 06:59 Prochlorperazine Edisylate (Compazine) 5 mg PACU PRN PRN IV NAUSEA, MRX1; Start 11/03/18 at 07:00; Stop 11/04/18 at 06:59 Etomidate (Amidate) 20 mg STK-MED ONCE IV ; Start 11/03/18 at 12:25; Stop at 12:27; Status DC Lidocaine HCl (Lidocaine HCl 2% Abboject) 100 mg STK-MED ONCE .ROUTE ; Start 11/03/18 at 12:27; Stop 11/03/18 at 12:29; Status DC Propofol 20 ml @ As Directed STK-MED ONCE IV ; Start 11/03/18 at 12:32; Stop 11/03 at 12:34; Status DC Active Scripts Active Reported Metformin Hcl Er (Metformin Hcl) 1,000 Mg Tab.er.24 1,000 Mg PO DAILYWBKFT Protonix (Pantoprazole Sodium) 20 Mg Tablet.dr 40 Mg PO DAILY Gabapentin (Gabapentin) 300 Mg Capsule 300 Mg PO BID Benicar (Olmesartan Medoxomil) 40 Mg Tablet 40 Mg PO DAILY Sotalol (Sotalol Hcl) 80 Mg Tablet 1 Tab PO BID Aspirin 81 Mg Tab.chew 1 Tab PO DAILY Amiodarone Hcl 200 Mg Tablet 1 Tab PO DAILY Warfarin Sodium 5 Mg Tablet 5 Mg PO QODAY Proair Respiclick (Albuterol Sulfate) 90 Mcg Aer.pow.ba 1 Puff IH PRN Q6HRS PRN Ranexa (Ranolazine) 500 Mg Tab.er.12h 1 Tab PO BID Isosorbide Mononitrate Er (Isosorbide Mononitrate) 60 Mg Tab.er.24h 60 Mg PO DAILY Lovastatin 40 Mg Tablet 40 Mg PO HS Allergies Allergies: Coded Allergies: hydrochlorothiazide (Verified Adverse Reaction, Intermediate, diarrhea, 11/03/18) ROS Review of System Otherwise negative. Physical Exam General: Alert, Oriented X3, Cooperative, No acute distress Lungs: Clear to auscultation Heart: S1S2, RRR, no gallops, no murmurs Abdomen: Normal bowel sounds, Soft, No tenderness, No hepatosplenomegaly, No masses Rectal Exam: other (see procedure note) Extremities: No cyanosis, No edema Skin: No significant lesion Neuro: Normal speech, Strength at 5/5 X4 ext, Normal tone, Sensation intact, Cranial nerves 3-12 NL, Reflexes 2+ Psych/Mental Status: Mental status NL, Mood NL Vitals Vitals Vital Signs Date Time Temp Pulse Resp B/P (MAP) Pulse Ox O2 Delivery O2 Flow Rate FiO2 11/03/18 12:26 97.0 68 20 96 97.0 VTE Prophylaxis Ordered VTE Prophylaxis Devices: No VTE Pharmacological Prophylaxi: No Assessment/Plan Assessment/Plan IMP: Screen for colon cancer; evaluate CBH's and occasional blood as well. PLAN: colonoscopy. KENJI CASAS MD Nov 03, 2018 13:37
--- NOTE | 2018-11-03 14:03 | PDOC4 ---
PROCEDURE Procedure Colonoscopy with biopsies Indication: Screening Meds: per anesthesia Findings: DON: external hemorrhoidal tags/normal prostate --to cecum. Mucosa normal. Occasional small diverticula, sigmoid. 3-4 mm polyp, rectum, biopsied off. Small internal hemorrhoids on retroflex. Pedro Pablo. well. IMP: Diverticulosis Small polyp. Hemorrhoids REC: Reassure Resume meds and diet. F/u in 2 weeks. Repeat exam pending histology. KENJI CASAS MD Nov 03, 2018 14:03
[2018-11-03 14:29] VITALS: BP 156/86
--- NOTE | 2018-11-04 16:09 | PATHOLOGY ---
[facility] Accession Number: [id number] . 01 Material submitted: . RECTUM POLYP . 01 Clinical history: . Pre-OP DX: Bloating, abdominal pain, constipation Post-OP DX: Pending, diverticulosis . 02 Diagnosis: Colorectal biopsy, rectal polyp: - Tubular adenoma. . (JPM:mm; 11/04/2018) [facility]/11/04/2018 . 02 Comment: There is no high grade dysplasia or evidence of malignancy. . (JPM:mm; 11/04/2018) . 02 Electronically signed: . Arnoldo Rendon MD, Pathologist NPI- [id number] . 01 Gross description: . Received in formalin labeled "Tammy, Paul, rectal polyp," are 2 segments of fine soft tissue measuring 0.7 x 0.3 x 0.3 cm in aggregate dimensions and ranging from 0.3 to 0.4 cm in maximum dimension. The specimen is submitted entirely in cassette A1. (TSD; 11/03/2018) TOB/TOB . 02 Pathologist provided ICD-10: D12.7 . 02 CPT . 546549 Specimen Comment: A courtesy copy of this report has been sent to Specimen Comment: [phone], . Specimen Comment: Report sent to / DR GOODMAN Specimen Comment: A duplicate report has been generated due to demographic updates. Performed at: 01 [facility] [address] [id number] MD Ebenezer Hall MD Phone: [phone] Performed at: 02 [facility] [address] [place], [place] [id number] MD Arnoldo Rendon MD Phone: [phone]
== END | disposition home or self-care (01) ==
LOC: ENDOS 11:53
PROVIDERS: ATTEND Internal Medicine Gastroenterology
DX: D12.8 Benign neoplasm of rectum (principal); K57.30 Diverticulosis of large intestine without perforation or abscess without bleeding; K64.0 First degree hemorrhoids; K64.4 Residual hemorrhoidal skin tags; I10 Essential (primary) hypertension; I25.2 Old myocardial infarction; I25.10 Atherosclerotic heart disease of native coronary artery without angina pectoris; E78.5 Hyperlipidemia, unspecified; J44.9 Chronic obstructive pulmonary disease, unspecified; K21.9 Gastro-esophageal reflux disease without esophagitis; G62.9 Polyneuropathy, unspecified; Z98.890 Other specified postprocedural states; Z88.8 Allergy status to other drugs, medicaments and biological substances; Z82.49 Family history of ischemic heart disease and other diseases of the circulatory system; Z95.1 Presence of aortocoronary bypass graft; Z72.89 Other problems related to lifestyle; Z79.899 Other long term (current) drug therapy
CPT/HCPCS: 45380; J2704; 88305

== ENCOUNTER → 2019-03-13 | Outpatient (CLI) | payer OTHER ==
[2018-11-03 14:29] VITALS: BP 156/86
[~2019-03-13] MED LIST changes: -ETOMIDATE 20 MG/10 ML VIAL. IV ONE; -GABA600T2 PO; +GABA600T7 PO; -HYDROmorphone 2 MG/ML VIAL IV PRN; -IV RINGERS,LACTATED 1000ML 1,000 ML IV SCH; -LIDOCAINE 1% PF 2 ML VIAL. ID PRN; -LIDOCAINE 2% 100 MG/5 ML SYRINGE. ONE; -MORPHINE SULFATE 4 MG/ML VIAL. IV PRN; -PROCHLORPERAZINE 10 MG/2 ML VIAL. IV PRN; -PROPOFOL 20 ML IV ONE; -fentaNYL PF VIAL 100 MCG/2 ML VIAL IV PRN
--- NOTE | 2019-03-13 17:08 | KCIC ---
CT MAXILLOFACIAL WO CONTRAST Indication: Recurrent sinusitis Exposure: One or more of the following individualized dose reduction techniques were utilized for this examination: 1. Automated exposure control 2. Adjustment of the mA and/or kV according to patient size 3. Use of iterative reconstruction technique. Technique: Standard imaging without intravenous contrast. Comparison: None FINDINGS: Minimal mucosal thickening, mucous retention cyst or polyp at the right maxillary sinus and at the left sphenoid sinus. No fluid levels are identified. Ethmoid and frontal sinuses are essentially clear. The ostiomeatal units are patent. No evidence of aggressive bone destruction. Mild deviation of the nasal septum to the right. Intracranial arterial calcifications are seen. The orbits appear unremarkable. IMPRESSION: Only minimal mucosal changes at the right maxillary and left sphenoid sinus. No significant acute paranasal sinus disease is suggested. Electronically signed by: Joseph Candelaria MD (03/13/2019 5:05 PM) [facility]-KCIC2
== END | disposition home or self-care (01) ==
LOC: KCIC CT 10:37
PROVIDERS: ATTEND Family Medicine
DX: J34.89 Other specified disorders of nose and nasal sinuses (principal); I67.2 Cerebral atherosclerosis; J01.01 Acute recurrent maxillary sinusitis; E11.9 Type 2 diabetes mellitus without complications; Z87.891 Personal history of nicotine dependence
CPT/HCPCS: 70486

== ENCOUNTER → 2019-09-17 | Outpatient (CLI) | payer OTHER ==
[2019-09-17] VITALS (8 sets, daily range): BP systolic 98–121; BP diastolic 65–89
--- NOTE | 2019-09-17 15:46 | NUR ---
Patient was stable and monitored throughout scan (see vital signs in interventions section). [employer] rep was present to change pacemaker/ICD settings before scan and returned pacemaker/ICD settings to previous settings once scan was complete.
--- NOTE | 2019-09-17 16:16 | RAD ---
MRI Lumbar Spine without contrast History: Neuropathic pain, leg weakness Technique: Multiplanar, multi sequential noncontrast MR imaging was performed of the lumbar spine. Comparison: None Findings: Lumbar vertebral body stature and AP alignment are maintained. There is left L5 spondylolysis, seen on previous August 2018 CT abdomen pelvis exam. There is mild L4-5 degenerative disc disease. There are posterior annular tears at L4-5 and L2-3. Conus terminates at the inferior aspect of L1. Visualized abdominal aorta is dilated about 3.5 cm, not fully evaluated. L1-L2, L2-3: Spinal canal and neural foramina are adequate. These levels were not included on the axial images. L3-L4: There is mild prominence of posterior epidural fat. Spinal canal and neural foramina are adequate. L4-L5: There is minimal disc osteophyte complex. Spinal canal is overall adequate. There is very minimal narrowing of the inferior distal right neural foramen by disc osteophyte complex, left neural foramen overall adequate. There is mild facet degenerative change and very mild buckling of the ligamentum flavum. L5-S1: Spinal canal and neural foramina are adequate. There is mild facet degenerative change. Impression: 1. There is aneurysmal dilatation of the abdominal aorta which is not fully evaluated, visualized portion about 3.5 cm in caliber. 2. There is no significant lumbar spinal stenosis. There is no significant lumbar neural foramina compromise, very minimal narrowing on the right at L4-5. There is mild L4-5 degenerative disc disease and spondylosis. There is left L5 spondylolysis, seen on previous 2018 CT exam. Electronically signed by: Trung Hunt MD (09/17/2019 4:13 PM) [facility]
== END | disposition home or self-care (01) ==
LOC: MRI 14:49
PROVIDERS: ATTEND Family Medicine
DX: M51.36 Other intervertebral disc degeneration, lumbar region (principal); M47.817 Spondylosis without myelopathy or radiculopathy, lumbosacral region; M25.78 Osteophyte, vertebrae
CPT/HCPCS: 72148

== ENCOUNTER → 2019-10-30 | Outpatient (CLI) | payer OTHER ==
[2019-09-17 15:30] VITALS: BP 98/69
[~2019-10-30] MED LIST changes: +APIX2.5T PO; +EMPA25TA PO
--- NOTE | 2019-10-30 16:01 | PAIN ---
DATE OF SERVICE: 10/30/2019 INITIAL CONSULTATION FOR PAIN CLINIC CHIEF COMPLAINT: Low back and right lower extremity pain. HISTORY OF PRESENT ILLNESS: The patient is a 59-year-old male who presents with history of pain for about 2 years, increasing in the leg and the low back throughout the entire leg and foot on the right side. The patient reports no specific injury or action he is aware of, came up overtime, gradually over the past 2 years becoming much more significant. The patient reports the pain is now constant in the right leg, anterior, posterior, lateral part of the thigh as well as the lower leg and the foot with aching and cold at times, feels like a burning sensation in the back and the right hip. The patient reports it awakens him from sleep several times a night, does not affect his bowel or bladder control, but does affect his ability to walk. He has been favoring his right leg and noticing some pain on the left side as well and the low back. The patient has had some therapies in the past, but mainly just doing stretching and strengthening exercises on his own, which is not decreasing the pain significantly. The patient reports he is taking gabapentin, which does help mildly only about 10%. He did have an MRI scan of the lumbar spine showing no significant stenosis, but very minimal narrowing on the right at L4-L5 with degenerative disk disease and spondylosis with disk osteophyte complex and inferior distal right neural foramen at the L4-L5 level. The patient reports it is worse with walking, standing and changing positions, better with sitting or lying down, but again is awakening him from sleep. The patient reports a disability rating from 0-10, 10 being the worst, is a 7 with family and home responsibilities, recreation, social activity, self-care and life support activities. PAST MEDICAL HISTORY: Significant for hearing loss, wearing hearing aids, irregular heart rhythm, congestive heart failure, coronary artery disease, pacemaker placement, atrial fibrillation, dizziness, arthritis. PREVIOUS SURGERY: Include left inguinal hernia repair, coronary artery bypass 2009, stents placed as well in the past and left elbow surgery with ulnar nerve transposition. CURRENT MEDICATIONS: Include Jardiance, sotalol, daily baby aspirin, amiodarone, Eliquis, Ranexa, lovastatin, isosorbide, gabapentin and Protonix as well as ProAir inhaler. ALLERGIES: THE PATIENT IS ALLERGIC TO HYDROCHLOROTHIAZIDE. FAMILY HISTORY: Significant for heart disease. SOCIAL HISTORY: The patient does not drink alcohol, does not smoke. Not using illegal, illicit or recreational drugs. 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 REVIEW OF SYSTEMS: The patient's review of systems is positive for those items mentioned in history of present illness. All systems reviewed and otherwise negative. It is complete, full and well documented on the patient's chart. PHYSICAL EXAMINATION: VITAL SIGNS: The patient's blood pressure 133/91, pulse 60, respirations 18, temperature 97.5 degrees Fahrenheit, height 6 feet, weight is 256 pounds. GENERAL: The patient is awake, alert, oriented, appropriate, very pleasant demeanor. HEENT: Shows normocephalic, atraumatic. Extraocular movements are intact and symmetrical. Oral cavity: Mucous membranes moist and pink. Dentition intact. NECK: Shows anterior throat supple without palpable lymphadenopathy noted. Swallow reflex symmetrical. CHEST: Shows normal on inspection. Breath sounds clear to auscultation bilaterally. HEART: Shows S1, S2 clear. No murmurs auscultated. ABDOMEN: Soft, nontender, nondistended. No palpable organomegaly is noted. No rebound or guarding demonstrated. BACK: Shows spine grossly in the midline. Normal appearing cervical lordotic curvature, thoracic kyphotic curvature slightly increased and some normal curvature of the lumbar spine. Lumbar paraspinous muscle shows symmetrical on inspection, with palpation shows some mild tenderness in the low lumbar distribution on the right side only, but without asymmetry, without trigger points. The patient has full rotational motion of lumbar spine, both laterally as well as extension and flexion without difficulty. EXTREMITIES: Lower extremities show deep tendon reflexes at 2+ in the patellar, 1+ tendo-calcaneus tendons. Motor exam is approximately 4 on a scale of 5 on the right with dorsiflexion, extension, quadriceps and hamstring flexion and 5/5 with left lower extremity. Peripheral pulses are 1+ posterior tibia. No peripheral edema is noted bilaterally. Lower extremities were warm and dry to touch, equal in color and appearance. Straight leg raise noted to be mildly positive on the right at about 35 degrees, decreased with knee flexion, left side is negative. Gaenslen's and Derick's maneuvers are negative bilaterally. The patient is able to stand, stand on his toes without difficulty or loss of balance, walks with a slight favoring gait, does appear to favor the right lower extremity with a mild limp, not using any assistive devices however to ambulate. SKIN: Shows warm and dry, good turgor. No edema. No sores, rashes or bruising throughout. IMPRESSION: This is a 59-year-old male with: 1. About 2-year history of increasing pain, low back, right lower extremity. 2. Hypertension. 3. Coronary artery disease with pacemaker. 4. Type 2 diabetes. 5. Arthritis. PLAN: Options were discussed with the patient including conservative medical managements, continued physical therapies, interventional techniques and would like to pursue interventional techniques. We discussed a lumbar epidural steroid injection using description as well as anatomical models to describe the procedure. We will first check with his main entree cook and cashier regarding safety of holding his Eliquis for 3 days prior to potential injection. In the meantime, the patient will try Medrol Dosepak. The patient was given instruction as well as side effects to be aware of with the medication. We will follow up once this is completed and once evaluation from his main entree cook and cashier is obtained. If deemed safe to hold his Eliquis, we will have him return for lumbar epidural steroid injection at that time. SAMY KEN MD DR: TERRANCE/juliet JOB#: [id number] / [id number] NILE River MD
== END | disposition home or self-care (01) ==
LOC: PNCL 09:56
PROVIDERS: ATTEND Anesthesiology
DX: M54.5 Low back pain (principal); M79.604 Pain in right leg; I11.0 Hypertensive heart disease with heart failure; I50.9 Heart failure, unspecified; I25.10 Atherosclerotic heart disease of native coronary artery without angina pectoris; E11.9 Type 2 diabetes mellitus without complications; I48.91 Unspecified atrial fibrillation; M19.90 Unspecified osteoarthritis, unspecified site; Z88.8 Allergy status to other drugs, medicaments and biological substances; Z95.5 Presence of coronary angioplasty implant and graft; Z95.0 Presence of cardiac pacemaker
CPT/HCPCS: G0463

== ENCOUNTER → 2019-11-20 | Outpatient (CLI) | payer OTHER ==
[2019-09-17 15:30] VITALS: BP 98/69
[~2019-11-20] MED LIST changes: +IOHEXOL 180 MG/ML 10 ML VIAL. ONE; +methylPREDNISolone ACETATE 40 MG/ML VIAL. ONE; +methylPREDNISolone ACETATE 80 MG/ML VIAL. ONE
--- NOTE | 2019-11-20 12:01 | PAIN ---
DATE OF SERVICE: 11/20/2019 PROGRESS NOTE FOR PAIN CLINIC DIAGNOSES: Lumbar radiculopathy with lumbar degenerative disk disease. HISTORY OF PRESENT ILLNESS: The patient is a 59-year-old male who returns for followup status post initial evaluation and clearance from his risk mgr to hold his Eliquis. He has been off it now for 3 days, reports still significant pain in low back, right lower extremity with burning, stinging pain in the right lower extremity, worse with walking, standing, changing positions, better with sitting or lying down, but does awaken him from sleep several times at night. The patient reports it is a 9 on a scale of 10 at its worst over the past week, 7 on average, 5 at its least and is a 5 today. The patient reports no new motor or sensory deficits, no new bowel or bladder incontinence or other complaints. PHYSICAL EXAMINATION: VITAL SIGNS: The patient's blood pressure 113/83, pulse 79, respirations are 16, temperature 97.6 degrees Fahrenheit, height is 6 feet, weight is 258 pounds. GENERAL: The patient is awake, alert, oriented, appropriate, very pleasant demeanor. HEENT: Shows normocephalic, atraumatic. Extraocular movements are intact and symmetrical. Oral cavity: Mucous membranes moist and pink. Dentition is intact. NECK: Shows anterior throat supple without palpable lymphadenopathy noted. Swallow reflex symmetrical. CHEST: Shows normal on inspection. Breath sounds clear bilaterally. HEART: Shows S1, S2 clear. No murmurs auscultated. ABDOMEN: Soft, nontender, nondistended. BACK: Shows spine grossly in the midline. Normal appearing thoracic kyphosis and some minor flattening of lumbar lordotic curvature. Lumbar paraspinous muscle shows symmetrical on inspection, on palpation shows some moderate tenderness diffusely bilaterally going diffusely without significant radiation. The patient has good rotational motion of lumbar spine, both laterally as well as extension and flexion without significant increase in pain. EXTREMITIES: Lower extremities show deep tendon reflexes 2+ in the patellar, 1+ tendo-calcaneus tendons. Motor exam is strong with 4/5 right dorsiflexion and extension, 5/5 on the left. Peripheral pulses are 1+. No peripheral edema is noted bilaterally. Options were discussed with the patient. The patient's old chart was reviewed as his current medication regimen updated. Current review of systems updated today as well. We will proceed with a lumbar epidural steroid injection today with fluoroscopic guidance. Risks were discussed including but not limited to bleeding, infection, possibility of epidural hematoma, subsequent neurological compromise, dural puncture, headaches, spinal cord and/or nerve damage, side effects of steroid medication and poor results regarding pain control. The patient understands and wished to proceed. The patient will return to clinic in approximately 2 weeks for followup. He was counseled as to return appointment, activity level and side effects to be aware of. DIAGNOSES: Lumbar radiculopathy with lumbar degenerative disk disease. PROCEDURE: Lumbar epidural steroid injection, translaminar approach at L4-L5 level using C-arm fluoroscopic guidance under sterile prep and drape using local anesthetic. MEDICATION INJECTED: A total of 120 mg Depo-Medrol plus 10 mL preservative-free normal saline and 2 mL of contrast. CONDITION AT DISCHARGE: Stable. The patient tolerated the procedure well, had no complications. The patient will restart his Eliquis tomorrow per Cardiology instructions. SAMY KEN MD DR: TERRANCE/juliet JOB#: [id number] / [id number]
== END ==
LOC: PNCL 10:30
PROVIDERS: ATTEND Anesthesiology
DX: M51.16 Intervertebral disc disorders with radiculopathy, lumbar region (principal)
CPT/HCPCS: 62323; J1030; J1040; Q9965

== ENCOUNTER → 2021-10-06 | Outpatient (CLI) | payer OTHER ==
[2019-09-17 15:30] VITALS: BP 98/69
[~2021-10-06] MED LIST changes: -AMIO200T4 PO; +AMIO200T53 PO; +DOXY-181 PO; -DOXY100C14 PO; +GADOTERATE 7.5 MMOL/15ML VIAL. IVP ONE; -IOHEXOL 180 MG/ML 10 ML VIAL. ONE; -ISOS60TA2 PO; +ISOS60TA55 PO; -methylPREDNISolone ACETATE 40 MG/ML VIAL. ONE; -methylPREDNISolone ACETATE 80 MG/ML VIAL. ONE
--- NOTE | 2021-10-06 14:56 | NUR ---
Pt to here for hip MRI. Pt has [employer] pacemaker, rep here to program pacemaker for MRI settings. Pt tolerated MRI without difficulty, VSS throughout. Received contrast without reaction. After MRI completed. pacemaker returned to appropriate settings per rep and pt departed. ASHLEE UGARTE
--- NOTE | 2021-10-06 17:52 | RAD ---
EXAMINATION: MRI RIGHT HIP WITH AND WITHOUT IV CONTRAST CLINICAL HISTORY: Right hip pain. Osteoid osteomas. TECHNIQUE: Multiplanar multisequential images obtained through the hip with and without intravenous c ontrast. COMPARISON: None FINDINGS: Right Hip: No labral tear. Mild subchondral marrow reactive/cystic changes in the posterior femoral h ead, possibly related to poorly visualized overlying full-thickness chondral fissuring/loss No defini te acute fracture. No avascular necrosis. Small joint effusion. Left Hip: No acute fracture. No avascular necrosis. Large field of view images limits evaluation of l abrum and cartilage. Sacroiliac Joints: Within normal limits. Pubic Symphysis: Within normal limits. Tendons: Within normal limits including the right iliopsoas, hamstring, gluteal and rectus femoris te ndons. Muscles: Mild edema and contrast enhancement along the distal iliopsoas muscle/myotendinous junction, compatible with a low-grade strain. Artifact projected over the right gluteal musculature on axial s equences. Bone Marrow: No acute fracture or suspicious marrow replacing process. Other: No suspicious contrast enhancement. Partially visualized lumbar degenerative changes. IMPRESSION: Nonspecific mild subchondral marrow edema in the posterior right femoral head, possibly degenerative as described. Small joint effusion right hip. Findings compatible with low-grade strain right iliopsoas muscle/myotendinous junction. Electronically signed by: Carlitos Lucia DO (10/06/2021 5:50 PM) [id number]
== END ==
LOC: MRI 13:06
DX: M25.451 Effusion, right hip (principal); M47.816 Spondylosis without myelopathy or radiculopathy, lumbar region; M25.551 Pain in right hip
CPT/HCPCS: 73723; A9575